=== PATIENT | male | born 1935 | race Caucasian/White ===

== ENCOUNTER 2022-12-12 14:39 | Inpatient (IN) | payer MEDICARE ==
--- NOTE | 2022-12-12 15:31 | ED ---
Extremity Problem HPI - General Source: patient, family, RN notes reviewed Mode of arrival: ambulatory Limitations: no limitations <Jacob Horne - Last Filed: 12/12/22 15:38> - General Source: patient, family, RN notes reviewed Mode of arrival: ambulatory Limitations: no limitations - History of Present Illness MD Complaint: extremity swelling Location: bilateral lower extremity <Madai Mcintosh - Last Filed: 12/13/22 11:32> - General Chief complaint: Extremity Problem,Nontraumatic Stated complaint: Fluid in legs-sent from urgentcare Time Seen by Provider: 12/12/22 15:30 - History of Present Illness Initial comments: This is an 87-year-old male presents emergency Department from urgent care with chief complaint of bilateral leg swelling. Patient states been getting worse he states is wheeping from both legs denies any significant shortness of breath no fever he states he is not on any diuretics. (Jacob Horne) In addition to the information above, patient states that he's had bilateral leg swelling for several weeks. These are starting to drain a large amount of fluid. States that he does have minor shortness of breath at baseline, however this is not getting worse. He did also previously experience orthopnea, but has not had this for a couple of days. He denies any pain associated with the leg swelling and drainage. He did go to urgent care earlier today, and they instructed him to come to the emergency department for evaluation of possible congestive heart failure. He does not follow with a primary care provider and has not done so in 10+ years. (Madai Mcintosh) - Related Data Home Medications Medication Instructions Recorded Confirmed Melatonin(Unknown Dose) 1 tab PO HS PRN 12/12/22 12/12/22 Allergies Allergy/AdvReac Type Severity Reaction Status Date / Time No Known Allergies Allergy Verified 12/12/22 19:19 Review of Systems ROS Other: All systems not noted in ROS Statement are negative. <Jacob Horne - Last Filed: 12/12/22 15:38> ROS Other: All systems not noted in ROS Statement are negative. <Madai Mcintosh - Last Filed: 12/13/22 11:32> ROS Statement: Those systems with pertinent positive or pertinent negative responses have been documented in the HPI. Past Medical History Past Medical History: Hypertension Additional Past Medical History / Comment(s): pt states that he hasn't been to a PCP in 10 years History of Any Multi-Drug Resistant Organisms: None Reported Past Surgical History: No Surgical Hx Reported Past Psychological History: Anxiety Smoking Status: Never smoker Past Alcohol Use History: Rare Past Drug Use History: None Reported <Jacob Horne - Last Filed: 12/12/22 15:38> General Exam <Jacob Horne - Last Filed: 12/12/22 15:38> Limitations: no limitations General appearance: alert, in no apparent distress Head exam: Present: atraumatic, normocephalic, normal inspection Respiratory exam: Present: normal lung sounds bilaterally. Absent: respiratory distress, wheezes, rales, rhonchi, stridor Cardiovascular Exam: Present: regular rate, normal rhythm, normal heart sounds. Absent: systolic murmur, diastolic murmur, rubs, gallop, clicks Extremities exam: Present: other (3+ pitting edema to the bilateral lower extremities with overlying erythema, superficial ulcerations, and weeping.) Neurological exam: Present: alert, oriented X3, CN II-XII intact Psychiatric exam: Present: normal affect, normal mood <Madai Mcintosh - Last Filed: 12/13/22 11:32> - General Exam Comments Initial Comments: Visual Physical Exam Vital signs reviewed General: Well-appearing, nontoxic, no acute distress. Head: Normocephalic, atraumatic Eyes: PERRLA, EOMI ENT: Airway patent Chest: Nonlabored breathing Skin: No visual rash, normal skin tone Neuro: Alert and oriented 3 Musculoskeletal: No gross abnormalities (Jacob Horne) Course Vital Signs 12/12/22 12/12/22 12/12/22 14:44 17:26 19:19 Temperature 98.0 F Pulse Rate 101 H 83 88 Respiratory 18 18 18 Rate Blood Pressure 148/75 140/74 155/75 O2 Sat by Pulse 96 99 98 Oximetry 12/12/22 12/12/22 12/12/22 20:30 22:00 23:40 Temperature Pulse Rate 94 85 85 Respiratory 18 16 17 Rate Blood Pressure 143/78 137/80 137/80 O2 Sat by Pulse 98 98 96 Oximetry 12/13/22 12/13/22 12/13/22 00:00 00:20 01:10 Temperature Pulse Rate 73 73 70 Respiratory 18 15 15 Rate Blood Pressure 102/61 111/78 124/70 O2 Sat by Pulse 96 95 98 Oximetry 12/13/22 12/13/22 12/13/22 02:30 03:30 05:00 Temperature Pulse Rate 66 76 66 Respiratory 13 18 12 Rate Blood Pressure 127/72 124/65 O2 Sat by Pulse 98 98 100 Oximetry 12/13/22 06:29 Temperature 97.6 F Pulse Rate 79 Respiratory 14 Rate Blood Pressure 126/82 O2 Sat by Pulse 100 Oximetry Medical Decision Making <Jacob Horne - Last Filed: 12/12/22 15:38> - Lab Data Result diagrams: 12/12/22 16:52 12/12/22 16:52 - Radiology Data Radiology results: report reviewed, image reviewed <Madai Mcintosh - Last Filed: 12/13/22 11:32> - Medical Decision Making I performed a quick note portion of this chart signed Jacob Horne PA-C (Jacob Horne) This is an 87-year-old male who presents to the emergency department for swelling to the bilateral lower extremities. Was pt. sent in by a medical professional or institution? @ -Urgent care Did you speak to anyone other than the patient for history? @ -No Did you review nursing and triage notes? @ -Yes, and I agree, it is accurate with regards to the patient's symptoms. Were old charts reviewed? @ -No Differential Diagnosis? @ -Differential Leg Swelling: DVT, cellulitis, CHF, lymphoma, this is not meant to be an all-inclusive list. EKG interpreted by me (3pts min.)? @ -EKG interpreted by me demonstrating the following: Sinus rhythm. Ventricular rate 94 beats per minute, AL interval 146 ms, QRS duration 106 ms, QTC 398 ms. X-rays interpreted by me (1pt min.)? @ -Chest x-ray obtained. My interpretation identifies cardiomegaly with pulmonary venous congestion. CT interpreted by me (1pt min.)? @ -Not obtained U/S interpreted by me (1pt. min.)? @ -Not obtained What testing was considered but not performed? (CT, X-rays, U/S, labs)? Why? @ -None What meds were considered but not given? Why? @ -None Did you discuss the management of the patient with other professionals? @ -Yes, Dr. Mott, who accepts the patient for admission to medicine. Did you reconcile home meds? @ -No Was smoking cessation discussed for >3mins.? @ -No Was critical care preformed (if so, how long)? @ -No Were there social determinants of health that impacted care today? How? (Homelessness, low income, unemployed, alcoholism, drug addiction, transportation, low edu. Level, literacy, decrease access to med. care, assisted, rehab)? @ -No Was there de-escalation of care discussed even if they declined? (Discuss DNR or withdrawal of care, Hospice)? @ -No What co-morbidities impacted this encounter? (DM, HTN, Smoking, COPD, CAD, Cancer, CVA, Hep., AIDS, mental health diagnosis, sleep apnea, morbid obesity)? @ -HTN Was patient admitted / discharged? @ -Admitted. Lab work obtained revealing poor renal function with a GFR of 25 and creatinine of 2.25. BNP also elevated at 42,400 suggestive of new onset congestive heart failure. Chest x-ray reveals cardiomegaly with pulmonary venous congestion and small bilateral pleural effusions. He does have erythema to the bilateral lower extremities in conjunction with the edema. Associated cellulitis cannot be excluded, will leave the decision of antibiotic management of to the admitting team. Patient has not had a follow-up appointment with a primary care provider in 10+ years and he does not have any recent lab values for comparison. Patient was given 60 mg of IV Lasix per the recommendation of ED attending. Given the notable lab values and because the patient is not established with any medical providers, he was admitted to medicine for new onset congestive heart failure. Undiagnosed new problem with uncertain prognosis? @ -None Drug Therapy requiring intensive monitoring for toxicity (Heparin, Nitro, Insulin, Cardizem)? @ -None Were any procedures done? @ -None Diagnosis/symptom? @ -New onset CHF, renal failure, leg swelling Acute, or Chronic, or Acute on Chronic? @ -Acute Uncomplicated (without systemic symptoms) or Complicated (systemic symptoms)? @ -Uncomplicated Side effects of treatment? @ -None Exacerbation, Progression, or Severe Exacerbation] @ -Not applicable Poses a threat to life or bodily function? @ -Yes This case was discussed in detail with the attending ED physician, Dr. Brady. Presentation, findings, and treatment plan discussed in detail as well. (Madai Tabares) - Lab Data Lab Results 12/12/22 12/12/22 12/12/22 Range/Units 16:52 16:52 16:52 WBC 8.8 (3.8-10.6) k/uL RBC 4.09 L (4.30-5.90) m/uL Hgb 12.3 L (13.0-17.5) gm/dL Hct 37.7 L (39.0-53.0) % MCV 92.1 (80.0-100.0) fL MCH 30.0 (25.0-35.0) pg MCHC 32.6 (31.0-37.0) g/dL RDW 13.5 (11.5-15.5) % Plt Count 298 (150-450) k/uL MPV 8.3 Neutrophils % 77 % Lymphocytes % 14 % Monocytes % 6 % Eosinophils % 2 % Basophils % 0 % Neutrophils # 6.7 (1.3-7.7) k/uL Lymphocytes # 1.2 (1.0-4.8) k/uL Monocytes # 0.5 (0-1.0) k/uL Eosinophils # 0.2 (0-0.7) k/uL Basophils # 0.0 (0-0.2) k/uL Sodium 138 (137-145) mmol/L Potassium 5.1 (3.5-5.1) mmol/L Chloride 108 H (98-107) mmol/L Carbon Dioxide 22 (22-30) mmol/L Anion Gap 8 mmol/L BUN 59 H (9-20) mg/dL Creatinine 2.25 H (0.66-1.25) mg/dL Est GFR (CKD-EPI)AfAm 29 (>60 ml/min/1.73 sqM) Est GFR (CKD-EPI)NonAf 25 (>60 ml/min/1.73 sqM) Glucose 147 H (74-99) mg/dL Estimated Ave Glu mg/dL 151 mg/dL Hemoglobin A1c 6.9 H (<=6.0) % Calcium 8.5 (8.4-10.2) mg/dL Magnesium 2.3 (1.6-2.3) mg/dL Total Bilirubin 0.3 (0.2-1.3) mg/dL AST 21 (17-59) U/L ALT 19 (4-49) U/L Alkaline Phosphatase 87 (38-126) U/L NT-Pro-B Natriuret Pep 03019 pg/mL Total Protein 5.8 L (6.3-8.2) g/dL Albumin 3.1 L (3.5-5.0) g/dL Disposition <Jacob Horne - Last Filed: 12/12/22 15:38> <Madai Mcintosh - Last Filed: 12/13/22 11:32> Clinical Impression: New onset of congestive heart failure, Renal failure, Edema of both legs Disposition: ADMITTED IP TO THIS HOSP
--- NOTE | 2022-12-12 16:19 | XR ---
EXAMINATION TYPE: XR chest 2V DATE OF EXAM: 12/12/2022 COMPARISON: NONE HISTORY: Shortness of breath TECHNIQUE: Frontal and lateral views of the chest are obtained. FINDINGS: Scattered senescent parenchymal changes noted. Hyperinflation compatible with COPD. Cardiomegaly with pulmonary venous congestion and small bilateral effusions. Correlate for mild conge stive failure. Mediastinal structures are stable and grossly unremarkable. No evidence for hilar prominence. Degenerative changes dorsal spine. IMPRESSION: 1. Cardiomegaly with pulmonary venous congestion and small bilateral effusions. Correlate for mild co ngestive failure.
[2022-12-12 17:06] LABS: Basophils % (A) 0 %; Eosinophils # (A) 0.2 k/uL (0-0.7); Eosinophils % (A) 2 %; HCT 37.7 % (39.0-53.0); HGB 12.3 gm/dL (13.0-17.5); Lymphocytes # (A) 1.2 k/uL (1.0-4.8); Lymphocytes % (A) 14 %; MCHC 32.6 g/dL (31.0-37.0); MCV 92.1 fL (80.0-100.0); Mean Platelet Volume 8.3; Monocytes # (A) 0.5 k/uL (0-1.0); Monocytes % (A) 6 %; Neutrophils # (A) 6.7 k/uL (1.3-7.7); Neutrophils % (A) 77 %; Platelet Count 298 k/uL (150-450); RBC 4.09 m/uL (4.30-5.90); RDW 13.5 % (11.5-15.5); WBC 8.8 k/uL (3.8-10.6)
[2022-12-12 17:14] LABS: ALT 19 U/L (4-49); AST 21 U/L (17-59); African American GFR (CKD) 29 (>60 ml/min/1.73 sqM); Albumin 3.1 g/dL (3.5-5.0); Alkaline Phosphatase 87 U/L (38-126); Anion Gap 8 mmol/L; Blood Urea Nitrogen 59 mg/dL (9-20); Calcium 8.5 mg/dL (8.4-10.2); Carbon Dioxide 22 mmol/L (22-30); Chloride 108 mmol/L (98-107); Glucose 147 mg/dL (74-99); Magnesium 2.3 mg/dL (1.6-2.3); Non-African American GFR(CKD) 25 (>60 ml/min/1.73 sqM); Potassium 5.1 mmol/L (3.5-5.1); Sodium 138 mmol/L (137-145); Total Bilirubin 0.3 mg/dL (0.2-1.3); Total Protein 5.8 g/dL (6.3-8.2)
[2022-12-12 17:42] LABS: NT-Pro-B-Type Natriuretic Pept 42400 pg/mL
[2022-12-12] MEDS ORDERED: FUROSEMIDE 10 MG/ML 4 ML VIAL IV STA (17:59)
[2022-12-12] MEDS ORDERED: FUROSEMIDE 10 MG/ML 10 ML VIAL IV STA (18:35)
[2022-12-12] MEDS ORDERED: ACETAMINOPHEN TAB 325 MG TAB PO PRN (18:35)
[2022-12-12] MEDS ORDERED: ONDANSETRON 4 MG/2 ML VIAL IVP PRN (18:35)
[2022-12-12] MEDS ORDERED: NALOXONE 0.4 MG/ML 1 ML VIAL IV PRN (18:35)
[2022-12-12] MEDS: HYDROcodone/APAP 5-325MG 1 EACH TAB PO PRN (22:51)
[2022-12-13] MEDS ORDERED: VANCOMYCIN IV PER PHARMACY 1 EACH MISC MISCELLANE PRN (00:39)
--- NOTE | 2022-12-13 00:39 | P.HPIM ---
History of Present Illness H&P Date: 12/12/22 Patient is a 87-year-old male with no known PMH who presents to the emergency room with complaints of bilateral lower extremity swelling and pain. He has been experiencing lower extremity swelling for the past several months and notes that recently got significantly worse. Reports exertional dyspnea during this time without chest discomfort. Denies cough, fever, chills, nausea, vomiting, abdominal pain, diarrhea. Denies orthopnea and PND. Denied history of congestive heart failure other cardiac disease. In the emergency room chest x-ray was consistent with CHF exacerbation. EKG revealed sinus rhythm with APCs at 94 bpm with LVH criteria. Laboratory evaluation was remarkable for a proBNP of 42,400, BUN 59, creatinine 2.25, glucose 147, hemoglobin 12.3. ED documentation reviewed and case discussed with ED provider. Review of systems: Pertinent positives and negatives as discussed in HPI, a complete review of systems was performed and all other systems are negative. Physical examination: Vital signs reviewed General: non toxic, no distress, appears at stated age Derm: Areas of erythema with purulent base ulcers on right leg medial and l ateral aspects with left leg medial aspect (marked), warm Head: atraumatic, normocephalic, symmetric Eyes: EOMI, no lid lag, anicteric sclera, pupils equal round reactive to light ENT: Nose and ears atraumatic Neck: No cervical lymphadenopathy, trachea midline, supple Mouth: no lip lesion, mucus membranes moist Cardiovascular: S1S2 reg, no murmur, positive dorsalis pedis pulse bilateral, 2+ bilateral lower 70 pitting edema to thighs Lungs: CTA bilateral, no rhonchi, no rales, no accessory muscle use Abdominal: soft, nontender to palpation, no guarding Ext: muscle strength 5 out of 5 in all 4 extremities grossly, no gross muscle atrophy, no contractures, Neuro: CN II-XI grossly intact, no gross focal neuro deficits Psych: Alert, oriented, appropriate affect Assessment: Bilateral lower extremity cellulitis Acute CHF exacerbation, newly diagnosed Kidney disease acute versus chronic Hyperglycemia without diagnosis of type II DM Imaging: In the emergency room chest x-ray was consistent with CHF exacerbation. EKG revealed sinus rhythm with APCs at 94 bpm with LVH criteria. Data Review: Laboratory evaluation was remarkable for a proBNP of 42,400, BUN 59, creatinine 2.25, glucose 147, hemoglobin 12.3. Plan: Start IV vancomycin for cellulitis Continue with Lasix 40 mg IV every 12 hourly Echocardiogram Daily weights, intake and output Cardiology consult Cardiac monitoring Monitor electrolytes daily Insulin sliding scale and blood glucose monitoring Check A1C levels DVT prophylaxis: Lovenox subcu The patient is admitted with an anticipated greater than 2 midnight stay for evaluation of cellulitis, CHF exacerbation CODE STATUS: Full Code Discussed with: Patient Anticipated discharge place: Home Past Medical History Past Medical History: Hypertension Additional Past Medical History / Comment(s): pt states that he hasn't been to a PCP in 10 years History of Any Multi-Drug Resistant Organisms: None Reported Past Surgical History: No Surgical Hx Reported Past Psychological History: Anxiety Smoking Status: Never smoker Past Alcohol Use History: Rare Past Drug Use History: None Reported Medications and Allergies Home Medications Medication Instructions Recorded Confirmed Type Melatonin(Unknown Dose) 1 tab PO HS PRN 12/12/22 12/12/22 History Allergies Allergy/AdvReac Type Severity Reaction Status Date / Time No Known Allergies Allergy Verified 12/12/22 19:19 Physical Exam Vitals: Vital Signs Temp Pulse Resp BP Pulse Ox 12/12/22 22:00 85 16 137/80 98 12/12/22 20:30 94 18 143/78 98 12/12/22 19:19 88 18 155/75 98 12/12/22 17:26 83 18 140/74 99 12/12/22 14:44 98.0 F 101 H 18 148/75 96 Intake and Output 12/12/22 12/12/22 12/13/22 14:59 22:59 06:59 Other: Weight 47.174 kg Results CBC & Chem 7: 12/12/22 16:52 12/12/22 16:52 Labs: Abnormal Lab Results - Last 24 Hours (Table) 12/12/22 12/12/22 Range/Units 16:52 16:52 RBC 4.09 L (4.30-5.90) m/uL Hgb 12.3 L (13.0-17.5) gm/dL Hct 37.7 L (39.0-53.0) % Chloride 108 H (98-107) mmol/L BUN 59 H (9-20) mg/dL Creatinine 2.25 H (0.66-1.25) mg/dL Glucose 147 H (74-99) mg/dL Total Protein 5.8 L (6.3-8.2) g/dL Albumin 3.1 L (3.5-5.0) g/dL
[2022-12-13] MEDS ORDERED: VANCOMYCIN 1,000 MG in SODIUM CHLORIDE 0.9% 250 ML IVPB ONE (01:00)
[2022-12-13 01:54] LABS: Glucose,Whole Blood 116 mg/dL (70-110)
[2022-12-13] MEDS: INSULIN ASPART (NovoLOG) 100 UNIT/ML VIAL SQ SCH ×4 (07:43→20:00)
[2022-12-13 07:50] LABS: Glucose,Whole Blood 110 mg/dL (70-110)
[2022-12-13] MEDS: FUROSEMIDE 10 MG/ML 4 ML VIAL IV SCH ×2 (08:11→21:10)
[2022-12-13] MEDS: ENOXAPARIN 30 MG/0.3 ML SYRINGE SQ SCH (08:11)
[2022-12-13] MEDS ORDERED: ENOXAPARIN 40 MG/0.4 ML SYRINGE SQ SCH (09:00)
--- NOTE | 2022-12-13 09:56 | US ---
EXAMINATION TYPE: US abdomen complete DATE OF EXAM: 12/13/2022 COMPARISON: NONE CLINICAL INDICATION: Male, 87 years old with history of edema, possible cirrhosis, SUJIT; distended abd TECHNIQUE: Multiple sonographic images of the abdomen are obtained. FINDINGS: EXAM MEASUREMENTS: Liver Length: 14.8 cm Gallbladder Wall: 0.4 cm CBD: 0.5 cm Spleen: not seen Right Kidney: 10.7 x 4.6 x 4.9 cm Left Kidney: not fully seen to assess FISH FILLETER NOTES: elderly male with distended abd and bowel gas Pancreas: not seen due to gas Liver: limited views, left lobe cyst = 2.4 x 1.9 x 1.1cm Gallbladder: multiple stones with wall thickening Evidence for sonographic Kaplan's sign: no CBD: wnl Spleen: not seen Right Kidney: severe hydronephrosis Left Kidney: unable to fully assess kidney due to extensive bowel gas, possible appearance of hydron ephrosis Upper IVC: wnl Abd Aorta: wnl midline fluid filled collection may represent over distended with diverticulum, patient stated he v oided today and had zero abd or pelvic pain Pancreas is obscured by overlying bowel gas. Left hepatic lobe simple appearing cyst. Noncirrhotic ap pearance of the liver. Cholelithiasis without evidence of pericardial fluid or positive sonographic M urphy sign. Common bile duct within normal limits. The intrahepatic portion of the IVC and proximal abdominal aorta are within normal limits. The splee n is not visualized. Left kidney is poorly visualized. Moderate right hydronephrosis. No solid mass o r nephrolithiasis identified. Midline fluid-filled collection. IMPRESSION: 1. Moderate right hydronephrosis. 2. Midline fluid-filled collection which may represent urinary bladder diverticulum versus other darius ologies. Consider further evaluation with CT abdomen pelvis with IV contrast. 3. Nonvisualization of left kidney due to overlying bowel gas. 4. Cholelithiasis.
[2022-12-13 11:42] LABS: African American GFR (CKD) 29 (>60 ml/min/1.73 sqM); Anion Gap 8 mmol/L; Blood Urea Nitrogen 63 mg/dL (9-20); Calcium 8.5 mg/dL (8.4-10.2); Carbon Dioxide 25 mmol/L (22-30); Chloride 106 mmol/L (98-107); Glucose 110 mg/dL (74-99); Magnesium 2.3 mg/dL (1.6-2.3); Non-African American GFR(CKD) 25 (>60 ml/min/1.73 sqM); Potassium 4.4 mmol/L (3.5-5.1); Sodium 139 mmol/L (137-145)
[2022-12-13 11:55] LABS: Glucose,Whole Blood 141 mg/dL (70-110)
[2022-12-13 14:21] VITALS: BMI 16.7
--- NOTE | 2022-12-13 14:32 | US ---
EXAMINATION TYPE: US arterial LE single level DATE OF EXAM: 12/13/2022 2:21 PM CLINICAL INDICATION: Male, 87 years old with history of b/l CHELSEA/TBI; wounds medial calves, redness History of: Smoker: previous Hypertension: y Diabetic: n Hyperlipidemia: y TIA/CVA: n Previous Vascular Surgery: n CAD: n OK: n Vascular Ulcers: n Claudication: n Gangrene: n Doppler Waveforms: Right: Multiphasic Left: Multiphasic Right Brachial Pressure: 159 Left Brachial Pressure: 151 Ankle-Brachial Indices: Right: 1.3 Left: 1.2 Toe Brachial Indices: Right: 0.9 Left: 1.0 IMPRESSION: Normal ankle-brachial indices bilaterally.
[2022-12-13 16:34] LABS: Glucose,Whole Blood 106 mg/dL (70-110)
--- NOTE | 2022-12-13 17:05 | P.CRDCN ---
History of Present Illness History of present illness: HISTORY OF PRESENTING ILLNESS Patient is pleasant 87-year-old male with no significant medical history who presents secondary to worsening lower extremity edema and shortness breath. He was actually seen at [facility] ER at [address] for similar symptoms approximately a week ago and was recommended to be transferred however patient left AMA. He states over the last 2 weeks he has been noticing increasing lower extremity edema as well as some shortness breath with exertion. He denies any chest pain or pressure. He was found to have kidney injury with creatinine 2.2, unclear baseline. Additionally hemoglobin 6.9 with unclear baseline. ProBNP 42,400. Additionally has been having erythema and some pain of the lower extremities with some nonhealing wounds. He denies any prior cardiac workup. Abdominal ultrasound does show concern of right hydronephrosis and left kidney not able to be fully seen secondary to overlying bowel gas. He does have some right lower abdomen distention and appears somewhat more full however he does not believe this is the case. No tobacco, rare alcohol, no illicit drugs, no family history. Has never been told he has heart failure before. Does not believe he has had kidney failure before. EKG shows sinus rhythm with LVH and nonspecific ST abnormalities. REVIEW OF SYSTEMS At the time of my exam: CONSTITUTIONAL: Denies fever or chills. CARDIOVASCULAR: Denies chest pain, +shortness of breath, no orthopnea, PND or palpitations. RESPIRATORY: Denies cough. GASTROINTESTINAL: Denies abdominal pain, diarrhea, constipation, nausea or vomiting. MUSCULOSKELETAL: Denies myalgias. NEUROLOGIC: Denies numbness, tingling or weakness. ENDOCRINE: Denies fatigue, weight change, polydipsia or polyurina. GENITOURINARY: Denies burning, hematuria or urgency with micturation. HEMATOLOGIC: Denies history of anemia or bleeding. PHYSICAL EXAMINATION Vital signs reviewed. CONSTITUTIONAL: No apparent distress. HEENT: Head is normocephalic. Pupils are equal, round. Sclerae anicteric. Mucous membranes of the mouth are moist. No JVD. No carotid bruit. CHEST EXAMINATION: Lungs are clear to auscultation. No chest wall tenderness is noted on palpation or with deep breathing. HEART EXAMINATION: Regular rate and rhythm. S1, S2 heard. No murmurs, gallops or rub. ABDOMEN: Soft, nontender. Positive bowel sounds. +> RLQ abd distention EXTREMITIES: 2+ peripheral pulses, 2+ lower extremity edema with erythema and ulcer NEUROLOGIC EXAMINATION: Patient is awake, alert and oriented x3. ASSESSMENT 1. Acute on chronic heart failure presumed diastolic 2. Kidney failure, unclear acute or chronic 3. Abnormal EKG with LVH 4. Newly diagnosed diabetes mellitus type 2, hemoglobin A1c 6.9 5. Right hydronephrosis 6. Right lower abdominal distention PLAN Obtain troponin for completeness. Majority of symptoms appear related to heart failure. He does have some degree of kidney failure unclear if this is acute or chronic. May be in part related to hydronephrosis. Defer any further imaging to primary however does have some increased right lower abdominal distention and consider CAT scan to further evaluate. Discussed with nursing checking a bladder scan. Continue with IV Lasix. Check 2-D echo. Further recommendations to follow. Obtain records from [place] Past Medical History Past Medical History: Hypertension Additional Past Medical History / Comment(s): pt states that he hasn't been to a PCP in 10 years History of Any Multi-Drug Resistant Organisms: None Reported Past Surgical History: No Surgical Hx Reported Past Anesthesia/Blood Transfusion Reactions: No Reported Reaction, Unable to Obtain Additional Past Anesthesia/Blood Transfusion Reaction / Comment(s): pt has never had a blood transfusion Past Psychological History: Anxiety Smoking Status: Never smoker Past Alcohol Use History: Rare Past Drug Use History: None Reported - Past Family History Father Family Medical History: Dementia Mother Family Medical History: Cancer Medications and Allergies Home Medications Medication Instructions Recorded Confirmed Type Melatonin(Unknown Dose) 1 tab PO HS PRN 12/12/22 12/12/22 History Allergies Allergy/AdvReac Type Severity Reaction Status Date / Time No Known Allergies Allergy Verified 12/12/22 19:19 Physical Exam Vitals: Vital Signs Temp Pulse Pulse Resp BP BP BP 12/13/22 15:55 97.9 F 85 17 138/65 12/13/22 14:00 64 17 12/13/22 11:45 98.7 F 64 17 135/65 12/13/22 11:37 65 18 135/65 12/13/22 06:29 97.6 F 79 14 126/82 12/13/22 05:00 66 12 12/13/22 03:30 76 18 124/65 12/13/22 02:30 66 13 127/72 12/13/22 01:10 70 15 124/70 12/13/22 00:20 73 15 111/78 12/13/22 00:00 73 18 102/61 12/12/22 23:40 85 17 137/80 12/12/22 22:00 85 16 137/80 12/12/22 20:30 94 18 143/78 12/12/22 19:19 88 18 155/75 12/12/22 17:26 83 18 140/74 Pulse Ox 12/13/22 15:55 97 12/13/22 14:00 12/13/22 11:45 98 12/13/22 11:37 96 12/13/22 06:29 100 12/13/22 05:00 100 12/13/22 03:30 98 12/13/22 02:30 98 12/13/22 01:10 98 12/13/22 00:20 95 12/13/22 00:00 96 12/12/22 23:40 96 12/12/22 22:00 98 12/12/22 20:30 98 12/12/22 19:19 98 12/12/22 17:26 99 Intake and Output 12/13/22 12/13/22 12/13/22 06:59 14:59 22:59 Output Total 725 Balance -725 Output: Urine 725 Other: Voiding Method Urinal External Catheter Weight 47.174 kg Results 12/12/22 16:52 12/13/22 10:49 Cardiac Enzymes 12/12/22 Range/Units 16:52 AST 21 (17-59) U/L CBC 12/12/22 Range/Units 16:52 WBC 8.8 (3.8-10.6) k/uL RBC 4.09 L (4.30-5.90) m/uL Hgb 12.3 L (13.0-17.5) gm/dL Hct 37.7 L (39.0-53.0) % Plt Count 298 (150-450) k/uL Comprehensive Metabolic Panel 12/12/22 12/13/22 Range/Units 16:52 10:49 Sodium 138 139 (137-145) mmol/L Potassium 5.1 4.4 (3.5-5.1) mmol/L Chloride 108 H 106 (98-107) mmol/L Carbon Dioxide 22 25 (22-30) mmol/L BUN 59 H 63 H (9-20) mg/dL Creatinine 2.25 H 2.25 H (0.66-1.25) mg/dL Glucose 147 H 110 H (74-99) mg/dL Calcium 8.5 8.5 (8.4-10.2) mg/dL AST 21 (17-59) U/L ALT 19 (4-49) U/L Alkaline Phosphatase 87 (38-126) U/L Total Protein 5.8 L (6.3-8.2) g/dL Albumin 3.1 L (3.5-5.0) g/dL Current Medications Generic Name Dose Route Start Last Admin Trade Name Freq PRN Reason Stop Dose Admin Acetaminophen 650 mg 12/12/22 18:35 Acetaminophen Tab 325 Mg Tab PO Q6HR PRN Mild Pain or Fever > 100.5 Hydrocodone Bitart/Acetaminophen 1 each 12/12/22 18:35 12/12/22 22:51 Hydrocodone/Apap 5-325mg 1 Each Tab PO 1 each Q4HR PRN Administration Moderate Pain (Scale 4 to 6) Enoxaparin Sodium 30 mg 12/13/22 09:00 12/13/22 08:11 Enoxaparin 30 Mg/0.3 Ml Syringe SQ 30 mg DAILY TANYA Administration Furosemide 40 mg 12/13/22 09:00 12/13/22 08:11 Furosemide 10 Mg/Ml 4 Ml Vial IV 40 mg Q12HR TANYA Administration Vancomycin HCl 1,000 mg/ 250 mls @ 125 mls/hr 12/14/22 06:00 Sodium Chloride IVPB 12/14/22 07:59 ONCE ONE Insulin Aspart 0 unit 12/13/22 07:30 12/13/22 12:04 Insulin Aspart (Novolog) 100 Unit/Ml Vial SQ Not Given ACHS [facility] Protocol Miscellaneous Information 1 each 12/13/22 00:39 Vancomycin Iv Per Pharmacy 1 Each Misc MISCELLANE DIRECTED PRN Per Protocol Protocol Naloxone HCl 0.2 mg 12/12/22 18:35 Naloxone 0.4 Mg/Ml 1 Ml Vial IV Q2M PRN Opioid Reversal Ondansetron HCl 4 mg 12/12/22 18:35 Ondansetron 4 Mg/2 Ml Vial IVP Q8HR PRN Nausea And Vomiting Intake and Output 12/13/22 12/13/2212/13/23 06:59 14:59 22:59 Output Total 725 Balance -725 Output: Urine 725 Other: Voiding Method Urinal External Catheter Weight 47.174 kg Patient Weight 12/14/22 06:59 Weight 47.174 kg 12/12/22 16:52 12/13/22 10:49
[2022-12-13] MEDS ORDERED: ALPRAZolam 0.25 MG TAB PO PRN (18:11)
--- NOTE | 2022-12-13 18:25 | P.PN ---
Subjective Progress Note Date: 12/13/22 (delayed charting seen at 0855) Patient is an 87-year-old male with no known past medical history who does not follow with doctors who presented to the ER due to bilateral lower extremity swelling and pain. On arrival to the ER he underwent an extensive evaluation. Initial vital signs were significant for tachycardia of 101. Initial laboratory analysis was remarkable for hemoglobin 12.3, BUN 59, creatinine 2.25, glucose 147, and BNP 42,400. Chest x-ray demonstrated cardiomegaly with pulmonary venous congestion and small bilateral pleural effusions. EKG showed normal sinus rhythm and no signs of ischemia. He was noted to have redness of bilateral lower extremities. He was diagnosed with bilateral looks pretty cellulitis and acute exacerbation of congestive heart failure. He was Lasix and vancomycin. Arrangements were made for admission. Patient seen and examined at bedside with sudden . He relates that he has not seen a physician in quite some time. He has low have lower extremity edema for a while but has been slowly worsening. He denies any significant shortness of breath. He states that his belly has been hard and swollen for quite some time. He denies any difficulty urinating. He denies any significant alcohol or tobacco use. Vital signs reviewed General: nontoxic, no distress, appears at stated age Cardiovascular: S1S2 reg with grade 2 systolic ejection murmur, positive posterior tibial pulse bilateral, Lungs: Coarse breath sounds bilateral, no rhonchi, no rales , no accessory muscle use Abdominal: soft,+ distended but non tender, no guarding, no appreciable organomegaly Ext: no gross muscle atrophy, 4+ edema bilateral lower extremities, bilateral lower extremity violaceous erythema with areas of caseous tissue, no contractures Neuro: CN II-XI grossly intact, no focal neuro deficits Psych: Alert, oriented, appropriate affect Assessment/Plan: Acute exacerbation of congestive heart failure Suspect bilateral peripheral vascular disease, possible component of lower extremity cellulitis Abdominal distention - Lasix 40 mg IVP BID - Stirct I and O, daily weights, - await cardio recs - check abd US - check CHELSEA - Vancomycin with pharmacy dosing, monitor for toxicity with trough and Cr levels - Await echo Hyperglycemia -Follow blood sugars, sliding scale insulin -A1c 6.9 consistent with diabetes Elevated creatinine, acute kidney injury versus chronic kidney disease -Check abdominal/renal ultrasound -Suspect component of cardiorenal syndrome and continue with Lasix -Avoid additional nephrotoxic agents -Monitor for vancomycin toxicity closely, pharmacy to dose IV vancomycin based on trough levels. We'll monitor creatinine and a trough daily - Imaging: Data Review: Labs from today include basic profile is remarkable for BUN 63 and creatinine 2.25. DVT prophylaxis: Discussed with: Anticipated discharge date: Anticipated discharge place: This dictation was prepared using gumi voice recognition software. Though every attempt is made to correct errors during dictation some may still exist. Objective - Vital Signs Vital signs: Vital Signs Temp 97.9 F 12/13/22 15:55 Pulse 85 12/13/22 15:55 Resp 17 12/13/22 15:55 BP 138/65 12/13/22 15:55 Pulse Ox 97 12/13/22 15:55 FiO2 Intake & Output 12/12/22 12/13/22 12/13/22 18:59 06:59 18:59 Output Total 725 1500 Balance -725 -1500 Weight 47.174 kg 47.174 kg Output: Urine 725 1500 Other: Voiding Method External Catheter - Labs CBC & Chem 7: 12/12/22 16:52 12/13/22 10:49 Labs: Abnormal Lab Results - Last 24 Hours (Table) 12/12/22 12/13/22 12/13/22 Range/Units 16:52 01:51 10:49 BUN 63 H (9-20) mg/dL Creatinine 2.25 H (0.66-1.25) mg/dL Glucose 110 H (74-99) mg/dL POC Glucose (mg/dL) 116 H (70-110) mg/dL Hemoglobin A1c 6.9 H (<=6.0) % 12/13/22 Range/Units 11:52 BUN (9-20) mg/dL Creatinine (0.66-1.25) mg/dL Glucose (74-99) mg/dL POC Glucose (mg/dL) 141 H (70-110) mg/dL Hemoglobin A1c (<=6.0) %
--- NOTE | 2022-12-13 18:58 | CT ---
EXAMINATION TYPE: CT abdomen pelvis wo con CT DLP: 367.5 mGycm, Automated exposure control for dose reduction was used. DATE OF EXAM: 12/13/2022 6:51 PM COMPARISON: None CLINICAL INDICATION:Male, 87 years old with history of fluid collection midline, and right hydro; Flu id collection midline, and right hydronephrosis. TECHNIQUE: Axial CT of the ;CT abdomen pelvis wo con;Sagittal and coronal reformats were created on a separate workstation. Contrast used: mL of , (none if empty) Oral contrast used: without Oral Contrast (none if empty) FINDINGS: LOWER CHEST: Small bilateral pleural effusions. Right lower lung calcified granuloma. Heart is mildly enlarged for size. ABDOMEN LIVER: Unremarkable GALLBLADDER AND BILE DUCTS: Layering increased densities within the lumen consistent with gallstones are present. PANCREAS: Unremarkable. SPLEEN: Unremarkable. ADRENAL GLANDS: Unremarkable. KIDNEYS AND URETERS: Moderate hydroureteronephrosis bilaterally. PELVIS BLADDER: Urinary bladder is distended which are dictated borders enlarged right lateral bladder diver ticulum. REPRODUCTIVE: Prostate is enlarged in size measuring 5.0. Cm in transverse dimension. ABDOMEN & PELVIS STOMACH AND BOWEL: No evidence of bowel obstruction. Scattered colonic diverticula with moderate to l arge stool burden throughout the colon. PERITONEUM/RETROPERITONEUM: No evidence of pneumoperitoneum or free fluid. VASCULATURE: Mild atherosclerotic calcifications are present throughout the abdominal aorta and its b ranches. No evidence of aortic aneurysm. MUSCULOSKELETAL: No acute osseous abnormalities. Moderate disc degeneration changes are present throu ghout the thoracolumbar spine. LYMPH NODES: No gross evidence for lymphadenopathy. SOFT TISSUE/ABDOMINAL WALL: Anasarca of the soft tissues. IMPRESSION: 1. 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 There is a large right bladder diverticulum with a distended urinary bladder with trabec ulated urinary bladder hernandez. There is moderate bilateral hydroureteronephrosis. Edwards catheter recom mended. 2. Moderate to large stool burden throughout the colon with colonic diverticulosis. 3. Small bilateral pleural effusions with anasarca and cardiomegaly correlate for congestive heart f ailure.
[2022-12-13 19:58] LABS: Glucose,Whole Blood 144 mg/dL (70-110)
[2022-12-13] MEDS: HYDROcodone/APAP 5-325MG 1 EACH TAB PO PRN (21:10)
[2022-12-14 05:56] LABS: Glucose,Whole Blood 103 mg/dL (70-110)
[2022-12-14] MEDS ORDERED: VANCOMYCIN 1,000 MG in SODIUM CHLORIDE 0.9% 250 ML IVPB ONE (06:00)
[2022-12-14] MEDS: INSULIN ASPART (NovoLOG) 100 UNIT/ML VIAL SQ SCH ×4 (06:36→21:11)
--- NOTE | 2022-12-14 07:43 | P.GSCN ---
History of Present Illness Consult date: 12/14/22 History of present illness: 87 yo male brought into hospital for new onset chf with lower extremity swelling and pain. He was found to have bilateral hydronephrosis and urine retention. He was straight cathed for 1300 ml and larson also bilateral hydro and a bladder diverticula We are asked to see the patient. The patient has been having problems with swelling over the last several weeks. He does have frequent urination and nocturia 3. He denies infection. He denies incontinence. He denies hematuria. He has not seen a doctor in many years. He is not on any medication for voiding dysfunction. Review of Systems All systems: negative - Constitutional Denies fever, Denies weight loss - EENT Eyes: denies blurred vision Ears, nose, mouth and throat: Denies dysphagia - Cardiovascular Denies chest pain, Denies shortness of breath - Respiratory Denies cough, Denies 7 - Gastrointestinal Reports as per HPI - Genitourinary Denies dysuria, Denies hematuria - Integumentary Denies rash, Denies unusual bruising - Neurological Denies headaches, Denies syncope - Hematologic/Lymphatic Denies easy bleeding, Denies easy bruising Past Medical History Past Medical History: Hypertension Additional Past Medical History / Comment(s): pt states that he hasn't been to a PCP in 10 years History of Any Multi-Drug Resistant Organisms: None Reported Past Surgical History: No Surgical Hx Reported Past Anesthesia/Blood Transfusion Reactions: No Reported Reaction, Unable to Obtain Additional Past Anesthesia/Blood Transfusion Reaction / Comm: pt has never had a blood transfusion Past Psychological History: Anxiety Smoking Status: Never smoker Past Alcohol Use History: Rare Past Drug Use History: None Reported - Past Family History Father Family Medical History: Dementia Mother Family Medical History: Cancer Medications and Allergies Home Medications Medication Instructions Recorded Confirmed Type Melatonin(Unknown Dose) 1 tab PO HS PRN 12/12/22 12/12/22 History Allergies Allergy/AdvReac Type Severity Reaction Status Date / Time No Known Allergies Allergy Verified 12/12/22 19:19 Surgical - Exam Vital Signs Temp Pulse Resp BP Pulse Ox 98.0 F 101 H 18 148/75 96 12/12/22 14:44 12/12/22 14:44 12/12/22 14:44 12/12/22 14:44 12/12/22 14:44 - General well developed, well nourished, no distress - Eyes normal ocular movement, no icteric - ENT no hearing loss, no congestion - Neck no masses, trachea midline - Respiratory normal respiratory effort, clear to auscultation - Abdomen Abdomen: soft, non tender, no guarding, no rigid, no rebound - Genitourinary Catheter with light pink urine - Integumentary no rash, no abnormal pigmentation - Neurologic no disoriented, no combative - Psychiatric oriented to time, oriented to person, oriented to place, speech is normal, emi ry intact Results - Labs 12/12/22 16:52 12/13/22 10:49 Abnormal Lab Results - Last 24 Hours (Table) 12/12/22 12/13/22 12/13/22 Range/Units 16:52 10:49 11:52 BUN 63 H (9-20) mg/dL Creatinine 2.25 H (0.66-1.25) mg/dL Glucose 110 H (74-99) mg/dL POC Glucose (mg/dL) 141 H (70-110) mg/dL Hemoglobin A1c 6.9 H (<=6.0) % Troponin I (0.000-0.034) ng/mL 12/13/22 12/13/22 Range/Units 18:22 19:56 BUN (9-20) mg/dL Creatinine (0.66-1.25) mg/dL Glucose (74-99) mg/dL POC Glucose (mg/dL) 144 H (70-110) mg/dL Hemoglobin A1c (<=6.0) % Troponin I 0.067 H* (0.000-0.034) ng/mL Diabetes panel 12/12/22 12/13/22 Range/Units 16:52 10:49 Sodium 139 (137-145) mmol/L Potassium 4.4 (3.5-5.1) mmol/L Chloride 106 (98-107) mmol/L Carbon Dioxide 25 (22-30) mmol/L BUN 63 H (9-20) mg/dL Creatinine 2.25 H (0.66-1.25) mg/dL Glucose 110 H (74-99) mg/dL Hemoglobin A1c 6.9 H (<=6.0) % Calcium 8.5 (8.4-10.2) mg/dL Calcium panel 12/13/22 Range/Units 10:49 Calcium 8.5 (8.4-10.2) mg/dL Pituitary panel 12/13/22 Range/Units 10:49 Sodium 139 (137-145) mmol/L Potassium 4.4 (3.5-5.1) mmol/L Chloride 106 (98-107) mmol/L Carbon Dioxide 25 (22-30) mmol/L BUN 63 H (9-20) mg/dL Creatinine 2.25 H (0.66-1.25) mg/dL Glucose 110 H (74-99) mg/dL Calcium 8.5 (8.4-10.2) mg/dL Adrenal panel 12/13/22 Range/Units 10:49 Sodium 139 (137-145) mmol/L Potassium 4.4 (3.5-5.1) mmol/L Chloride 106 (98-107) mmol/L Carbon Dioxide 25 (22-30) mmol/L BUN 63 H (9-20) mg/dL Creatinine 2.25 H (0.66-1.25) mg/dL Glucose 110 H (74-99) mg/dL Calcium 8.5 (8.4-10.2) mg/dL - Imaging CT scan - abdomen: report reviewed, image reviewed CT scan - pelvis: report reviewed, image reviewed US - kidney/bladder: report reviewed Assessment and Plan Assessment: Impression: Congestive heart failure. Urine retention. Bladder diverticula. Bilateral hydronephrosis secondary to urine retention. Recommendations: The patient should go home with the indwelling catheter. I will add Flomax to his regimen. As an outpatient he will need a cystometrogram cystoscopy to assess the bladder and prostatic function.
[2022-12-14 08:25] LABS: Basophils % (A) 0 %; Eosinophils # (A) 0.2 k/uL (0-0.7); Eosinophils % (A) 3 %; HCT 36.4 % (39.0-53.0); HGB 12.1 gm/dL (13.0-17.5); Lymphocytes # (A) 1.3 k/uL (1.0-4.8); Lymphocytes % (A) 15 %; MCH 30.9 pg (25.0-35.0); MCHC 33.3 g/dL (31.0-37.0); MCV 92.9 fL (80.0-100.0); Mean Platelet Volume 7.4; Monocytes # (A) 0.5 k/uL (0-1.0); Monocytes % (A) 6 %; Neutrophils # (A) 6.4 k/uL (1.3-7.7); Neutrophils % (A) 75 %; Platelet Count 302 k/uL (150-450); RBC 3.92 m/uL (4.30-5.90); RDW 13.5 % (11.5-15.5); WBC 8.6 k/uL (3.8-10.6)
[2022-12-14 08:44] LABS: African American GFR (CKD) 28 (>60 ml/min/1.73 sqM); Anion Gap 9 mmol/L; Blood Urea Nitrogen 63 mg/dL (9-20); Calcium 8.7 mg/dL (8.4-10.2); Carbon Dioxide 26 mmol/L (22-30); Chloride 103 mmol/L (98-107); Glucose 123 mg/dL (74-99); Non-African American GFR(CKD) 24 (>60 ml/min/1.73 sqM); Potassium 3.9 mmol/L (3.5-5.1); Sodium 138 mmol/L (137-145)
[2022-12-14] MEDS: ENOXAPARIN 30 MG/0.3 ML SYRINGE SQ SCH (08:50)
[2022-12-14] MEDS: FUROSEMIDE 10 MG/ML 4 ML VIAL IV SCH (08:50)
[2022-12-14 11:20] LABS: Glucose,Whole Blood 153 mg/dL (70-110)
--- NOTE | 2022-12-14 11:35 | P.NPCON ---
History of Present Illness - Reason for Consult acute renal failure - History of Present Illness Reason for consultation: Acute kidney injury History of present illness: Patient is a 87-year-old male seen in consultation for acute kidney injury. Patient's creatinine on admission was 2.25 and is fairly stable at 2.38 today. Patient came to the hospital due to worsening lower extremity edema going on for the last few months. He also noticed redness in his lower extremities and is currently being treated for cellulitis. Patient does not follow with nephrology outpatient. Family is present at bedside. Her family he hasn't seen a physician in quite some time. No history of diabetes. No history of coronary artery disease. Denies regular use of nonsteroidals. Currently receiving IV Lasix and edema has improved her patient. No fever or chills. Vital signs are stable. General: No acute distress. HEENT: Head exam is unremarkable. LUNGS: Breath sounds decreased. HEART: Rate and Rhythm are regular. ABDOMEN: Nontender. EXTREMITITES: 1+ edema. Erythema noted. No drainage. Past Medical History Past Medical History: Hypertension Additional Past Medical History / Comment(s): pt states that he hasn't been to a PCP in 10 years History of Any Multi-Drug Resistant Organisms: None Reported Past Surgical History: No Surgical Hx Reported Past Anesthesia/Blood Transfusion Reactions: No Reported Reaction, Unable to Obtain Additional Past Anesthesia/Blood Transfusion Reaction / Comment(s): pt has never had a blood transfusion Past Psychological History: Anxiety Smoking Status: Never smoker Past Alcohol Use History: Rare Past Drug Use History: None Reported - Past Family History Father Family Medical History: Dementia Mother Family Medical History: Cancer Medications and Allergies Home Medications Medication Instructions Recorded Confirmed Type Melatonin(Unknown Dose) 1 tab PO HS PRN 12/12/22 12/12/22 History Allergies Allergy/AdvReac Type Severity Reaction Status Date / Time No Known Allergies Allergy Verified 12/12/22 19:19 Physical Exam Vitals: Vital Signs Temp Pulse Pulse Resp BP BP BP 12/14/22 08:00 98.4 F 94 17 145/63 12/14/22 04:00 74 18 113/61 12/14/22 02:00 91 18 12/13/22 23:56 91 18 123/65 12/13/22 20:00 106 H 17 12/13/22 19:45 99 F 106 H 17 134/62 12/13/22 15:55 97.9 F 85 17 138/65 12/13/22 14:00 64 17 12/13/22 11:45 98.7 F 64 17 135/65 12/13/22 11:37 65 18 135/65 Pulse Ox 12/14/22 08:00 98 12/14/22 04:00 97 12/14/22 02:00 12/13/22 23:56 97 12/13/22 20:00 12/13/22 19:45 98 12/13/22 15:55 97 12/13/22 14:00 12/13/22 11:45 98 12/13/22 11:37 96 Intake and Output 12/13/22 12/14/22 12/14/22 22:59 06:59 14:59 Intake Total 350 Output Total 5100 3300 Balance -5100 -3300 350 Intake: Oral 350 Output: Urine 5100 3300 Straight 1300 Other: Voiding Method External Catheter Indwelling Catheter Weight 49.5 kg Results - Lab Results Most recent lab results Calcium 8.7 mg/dL (8.4-10.2) 12/14/22 07:49 Magnesium 2.0 mg/dL (1.6-2.3) 12/14/22 07:49 12/14/22 07:49 12/14/22 07:49 Assessment and Plan Plan: Assessment: 1. Acute kidney injury secondary to ATN from cardiorenal syndrome and obstructive uropathy. Creatinine stable at 2.38. Unknown baseline renal function. 2. Bilateral hydronephrosis secondary to urinary retention. On Flomax. Has Edwards catheter. Urology following. Cystoscopy outpatient. 3. Volume overload. Improving with diuresis. 4. Cardiomyopathy. Unknown ejection fraction. Cardiology following. 5. Lower extremity cellulitis on antibiotics. Plan: Maintain IV Lasix. Check urinalysis. Continue to monitor renal function and urine output. Follow-up echocardiogram. Avoid nephrotoxins. Thank you for the consultation. I will continue to follow the patient daily during his hospital stay.
--- NOTE | 2022-12-14 11:47 | CA ---
Transthoracic Echo Report Name: Meir Cat Age: 87 Gender: M : 1935 Exam Date: 12/13/2022 13:13 Exam Location: [facility] Ht (in): 66 Wt (lb): 104 Ordering Physician: Meg Hale MD Attending/Referring Phys: Clinical Practitioner Jos Chen Procedure CPT: Indications: chf Cardiac Hx: Technical Quality: Fair Contrast 1: Total Dose (mL): Contrast 2: Total Dose (mL): MEASUREMENTS (Male / Female) Normal Values 2D ECHO LV Diastolic Diameter PLAX 6.0 cm 4.2 - 5.9 / 3.9 - 5.3 cm LV Systolic Diameter PLAX 5.3 cm IVS Diastolic Thickness 1.0 cm 0.6 - 1.0 / 0.6 - 0.9 cm LVPW Diastolic Thickness 1.0 cm 0.6 - 1.0 / 0.6 - 0.9 cm LV Relative Wall Thickness 0.3 RV Internal Dim ED PLAX 3.3 cm LVOT Diameter 2.3 cm Aortic Root Diameter 3.3 cm LA Systolic Diameter LX 2.9 cm 3.0 - 4.0 / 2.7 - 3.8 cm LV Diastolic Volume MOD BP 168.0 cm??? 67 - 155 / 56 - 104 cm??? LV Systolic Volume MOD BP 105.2 cm??? - 58 / 19 - 49 cm??? LV Ejection Fraction MOD BP 37.4 % >= 55 % LV Cardiac Index MOD BP 3209.0 cm???/min???m??? LV Diastolic Volume MOD 4C 161.0 cm??? LV Systolic Volume MOD 4C 100.4 cm??? LV Ejection Fraction MOD 4C 37.7 % LV Cardiac Index MOD 4C 3097.6 cm???/min???m??? LV Diastolic Length 4C 8.9 cm LV Systolic Length 4C 8.0 cm LV Diastolic Volume MOD 2C 175.0 cm??? LV Systolic Volume MOD 2C 108.3 cm??? LV Ejection Fraction MOD 2C 38.1 % LV Cardiac Index MOD 2C 3407.7 cm???/min???m??? LV Diastolic Length 2C 8.8 cm LV Systolic Length 2C 8.2 cm LA Volume 69.6 cm??? 18 - 58 / 22 - 52 cm??? LA Volume Index 47.4 cm???/m??? 16 - 28 cm???/m??? DOPPLER AV Peak Velocity 130.3 cm/s AV Peak Gradient 6.8 mmHg AI Peak Velocity 339.1 cm/s AI Peak Gradient 46.0 mmHg AI Pressure Half Time 526.8 ms LVOT Peak Velocity 92.6 cm/s LVOT Peak Gradient 3.4 mmHg LVOT Velocity Time Integral 19.7 cm LVOT Stroke Volume 78.7 cm??? LVOT Stroke Volume Index 52.0 ml/m??? LVOT Cardiac Index 4021.4 cm???/min???m??? AV Area Cont Eq pk 2.8 cm??? MV Peak Velocity 107.7 cm/s MV Peak Gradient 4.6 mmHg MV Mean Velocity 50.9 cm/s MV Mean Gradient 1.3 mmHg MV Velocity Time Integral 30.6 cm MR Peak Velocity 590.4 cm/s MR Peak Gradient 139.4 mmHg Mitral E Point Velocity 98.8 cm/s Mitral A Point Velocity 63.7 cm/s Mitral E to A Ratio 1.5 MV Deceleration Time 216.0 ms PV Peak Velocity 82.7 cm/s PV Peak Gradient 2.7 mmHg FINDINGS Left Ventricle Severely increased left ventricular systolic volume. Severely decreased left ventricular ejection fraction. Left ventricular ejection fraction is estimated at 20-25%. Suspected inferolateral hypokinesia Right Ventricle Normal right ventricular size. Right Atrium Normal right atrial size. Left Atrium Moderately increased left atrial volume. Mildly increased left atrial area. LA volume index= 46ml/m2. Mitral Valve Structurally normal mitral valve. Moderate MR. Aortic Valve Trileaflet aortic valve. Mild to moderate AV calcification. Moderate AI. Tricuspid Valve Structurally normal tricuspid valve. Trace TR. Pulmonic Valve Pulmonic valve not well visualized. Mild PI. Pericardium Normal pericardium. Aorta Normal size aortic root. CONCLUSIONS LVEF estimated at 20-25% Severely increased LV cavity size Severely reduced global LV systolic function Inferolateral hypokinesia Moderate mitral regurgitation Calcific aortic valve with moderate aortic regurgitation. Moderate left atrial dilatation Previewed by: Dr Wes Devlin (Electronically Signed) Final Date: 14 December 2022 11:46
--- NOTE | 2022-12-14 11:57 | P.PN ---
Subjective Progress Note Date: 12/14/22 HISTORY OF PRESENTING ILLNESS Patient is pleasant 87-year-old male with no significant medical history who presents secondary to worsening lower extremity edema and shortness breath. He was actually seen at [facility] ER at [address] for similar symptoms approximately a week ago and was recommended to be transferred however patient left AMA. He states over the last 2 weeks he has been noticing increasing lower extremity edema as well as some shortness breath with exertion. He denies any chest pain or pressure. He was found to have kidney injury with creatinine 2.2, unclear baseline. Additionally hemoglobin 6.9 with unclear baseline. ProBNP 42,400. Additionally has been having erythema and some pain of the lower extremities with some nonhealing wounds. He denies any prior cardiac workup. Abdominal ultrasound does show concern of right hydronephrosis and left kidney not able to be fully seen secondary to overlying bowel gas. He does have some right lower abdomen distention and appears somewhat more full however he does not believe this is the case. No tobacco, rare alcohol, no illicit drugs, no family history. Has never been told he has heart failure before. Does not believe he has had kidney failure before. EKG shows sinus rhythm with LVH and nonspecific ST abnormalities. 12/14 Patient is seen today in follow-up. No new concerns. His renal function is about the same with BUN of 63 creatinine 2.38. Hemoglobin is 12.1. Nephrology and continued on IV Lasix 40 mg daily. Heart rate is in the 90s, blood pressure 145/63, pulse ox 90% on room air. Patient is in a negative fluid balance. Troponin 0.067. Echocardiogram reveals, severely reduced global LV systolic function. Inferior lateral hypokinesia. Moderate mitral regurgitation, moderate aortic regurgitation, moderate left atrial dilation. PHYSICAL EXAMINATION Vital signs reviewed. CONSTITUTIONAL: No apparent distress. HEENT: Head is normocephalic. Pupils are equal, round. Sclerae anicteric. Mucous membranes of the mouth are moist. No JVD. No carotid bruit. CHEST EXAMINATION: Lungs are clear to auscultation. No chest wall tenderness is noted on palpation or with deep breathing. HEART EXAMINATION: Regular rate and rhythm. S1, S2 heard. No murmurs, gallops or rub. ABDOMEN: Soft, nontender. Positive bowel sounds. +> RLQ abd distention EXTREMITIES: 2+ peripheral pulses, 2+ lower extremity edema with erythema and ulcer NEUROLOGIC EXAMINATION: Patient is awake, alert and oriented x3. ASSESSMENT 1. Acute on chronic heart failure presumed diastolic 2. Acute kidney injury secondary to ATN, cardiorenal syndrome and obstructive uropathy 3. Abnormal EKG with LVH 4. Newly diagnosed diabetes mellitus type 2, hemoglobin A1c 6.9 5. Right hydronephrosis 6. Right lower abdominal distention 7. Valvular heart disease with moderate mitral regurgitation, moderate aortic regurgitation PLAN Majority of symptoms appear related to heart failure. Continue with IV Lasix. Further recommendations to follow. Nurse practitioner note has been reviewed, I agree with the documented findings and plan of care. Patient was seen and examined. Objective - Vital Signs Vital signs: Vital Signs Temp 98.4 F 12/14/22 08:00 Pulse 94 12/14/22 08:00 Resp 17 12/14/22 08:00 BP 145/63 12/14/22 08:00 Pulse Ox 98 12/14/22 08:00 FiO2 Intake & Output 12/13/22 12/14/22 12/14/22 18:59 06:59 18:59 Intake Total 350 Output Total 2800 5600 Balance -2800 -5600 350 Weight 47.174 kg 49.5 kg Intake: Oral 350 Output: Urine 2800 5600 Straight 1300 Other: Voiding Method External Catheter Indwelling Catheter - Labs CBC & Chem 7: 12/14/22 07:49 12/14/22 07:49 Labs: Abnormal Lab Results - Last 24 Hours (Table) 12/13/22 12/13/22 12/13/22 Range/Units 10:49 11:52 18:22 RBC (4.30-5.90) m/uL Hgb (13.0-17.5) gm/dL Hct (39.0-53.0) % BUN 63 H (9-20) mg/dL Creatinine 2.25 H (0.66-1.25) mg/dL Glucose 110 H (74-99) mg/dL POC Glucose (mg/dL) 141 H (70-110) mg/dL Troponin I 0.067 H* (0.000-0.034) ng/mL 12/13/22 12/14/22 12/14/22 Range/Units 19:56 07:49 07:49 RBC 3.92 L (4.30-5.90) m/uL Hgb 12.1 L (13.0-17.5) gm/dL Hct 36.4 L (39.0-53.0) % BUN 63 H (9-20) mg/dL Creatinine 2.38 H (0.66-1.25) mg/dL Glucose 123 H (74-99) mg/dL POC Glucose (mg/dL) 144 H (70-110) mg/dL Troponin I (0.000-0.034) ng/mL
[2022-12-14 16:16] LABS: Glucose,Whole Blood 135 mg/dL (70-110)
--- NOTE | 2022-12-14 17:14 | P.PN ---
Subjective Progress Note Date: 12/14/22 (delayed charting seen at 1020) Patient is an 87-year-old male with no known past medical history who does not follow with doctors who presented to the ER due to bilateral lower extremity swelling and pain. On arrival to the ER he underwent an extensive evaluation. Initial vital signs were significant for tachycardia of 101. Initial laboratory analysis was remarkable for hemoglobin 12.3, BUN 59, creatinine 2.25, glucose 147, and BNP 42,400. Chest x-ray demonstrated cardiomegaly with pulmonary venous congestion and small bilateral pleural effusions. EKG showed normal sinus rhythm and no signs of ischemia. He was noted to have redness of bilateral lower extremities. He was diagnosed with bilateral looks pretty cellulitis and acute exacerbation of congestive heart failure. He was Lasix and vancomycin. Arrangements were made for admission. Patient seen and examined at bedside. He wants to go home.He denies any chest pain or shrotness of breath, no nasuea, or vomiting. Vital signs reviewed General: nontoxic, no distress, appears at stated age Cardiovascular: S1S2 reg with grade 2 systolic ejection murmur, positive posterior tibial pulse bilateral, Lungs: Coarse breath sounds bilateral, no rhonchi, no rales , no accessory muscle use Abdominal: soft,+ distended but non tender, no guarding, no appreciable organomegaly Ext: no gross muscle atrophy, 4+ edema bilateral lower extremities, bilateral lower extremity violaceous erythema with areas of caseous tissue, no contractures Neuro: CN II-XI grossly intact, no focal neuro deficits Psych: Alert, oriented, appropriate affect Assessment/Plan: Acute exacerbation of congestive heart failure Suspect bilateral peripheral vascular disease, possible component of lower e xtremity cellulitis b/l nephrosis, prostomegally, dilated bladder with bladder diverticulitis Elevated creatinine, acute kidney injury versus chronic kidney disease - Nephrology consultation reviewed continue with IV Lasix, check urinalysis. - Cardiology note reviewed: Case discussed with Dr. Montenegro. We'll decrease Lasix as patient had rapid improvement in lower extremity edema. Await echocard iogram. - Urology consultation reviewed: Patient is to go home with indwelling Edwards catheter, Flomax added to regimen, outpatient cystoscopy. - Lasix 40 mg IVP daily - Strict I and O, daily weights, - Vancomycin with pharmacy dosing, monitor for toxicity with trough and Cr levels - Await echo - Avoid additional nephrotoxic agents - Monitor for vancomycin toxicity closely, pharmacy to dose IV vancomycin based on trough levels. 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, large right bladder diverticulum with distended urinary bladder and trabeculated bladder wall, moderate bilateral hydrocele, moderate to large burden, small bilateral pleural effusions Abdominal ultrasound-moderate right sided hydrocodone midline fluid-filled collection possible bladder diverticulitis, cholelithiasis, left kidney not visualized Arterial ultrasound-brachial indices bilateral Data Review: Labs reviewed from today include CBC, basic metabolic profile, magnesium, and A1c which are remarkable for hemoglobin 12.2, BUN 63, creatinine 2.38 DVT prophylaxis: Discussed with: Anticipated discharge date: Anticipated discharge place: This dictation was prepared using [employer] voice recognition software. Though every attempt is made to correct errors during dictation some may still exist. Objective - Vital Signs Vital signs: Vital Signs Temp 98.1 F 12/14/22 15:34 Pulse 98 12/14/22 15:34 Resp 17 12/14/22 15:34 BP 125/65 12/14/22 15:34 Pulse Ox 98 12/14/22 15:34 FiO2 Intake & Output 12/13/22 12/14/22 12/14/22 18:59 06:59 18:59 Intake Total 350 Output Total 2800 5600 2675 Balance -2800 -5600 -2325 Weight 47.174 kg 49.5 kg 55.1 kg Intake: Oral 350 Output: Urine 2800 5600 2675 Straight 1300 Other: Voiding Method External Catheter Indwelling Catheter Indwelling Catheter - Labs CBC & Chem 7: 12/14/22 07:49 12/14/22 07:49 Labs: Abnormal Lab Results - Last 24 Hours (Table) 12/13/22 12/13/22 12/14/22 Range/Units 18:22 19:56 07:49 RBC (4.30-5.90) m/uL Hgb (13.0-17.5) gm/dL Hct (39.0-53.0) % BUN 63 H (9-20) mg/dL Creatinine 2.38 H (0.66-1.25) mg/dL Glucose 123 H (74-99) mg/dL POC Glucose (mg/dL) 144 H (70-110) mg/dL Troponin I 0.067 H* (0.000-0.034) ng/mL 12/14/22 12/14/22 12/14/22 Range/Units 07:49 11:18 16:15 RBC 3.92 L (4.30-5.90) m/uL Hgb 12.1 L (13.0-17.5) gm/dL Hct 36.4 L (39.0-53.0) % BUN (9-20) mg/dL Creatinine (0.66-1.25) mg/dL Glucose (74-99) mg/dL POC Glucose (mg/dL) 153 H 135 H (70-110) mg/dL Troponin I (0.000-0.034) ng/mL Microbiology - Last 24 Hours (Table) 12/13/22 01:20 Blood Culture - Preliminary Blood 12/13/22 01:00 Blood Culture - Preliminary Blood
[2022-12-14] MEDS ORDERED: TAMSULOSIN 0.4 MG CAP.ER.24H PO SCH (18:30)
[2022-12-14 19:37] LABS: Glucose,Whole Blood 168 mg/dL (70-110)
[2022-12-14 21:41] LABS: RBC,Urine >182 /hpf (0-5); WBC,Urine 81 /hpf (0-5)
[2022-12-14 21:43] LABS: Appearance,Urine Cloudy (Clear)
[2022-12-14 21:44] LABS: Color,Urine Dark Red
[2022-12-15 06:10] LABS: Glucose,Whole Blood 113 mg/dL (70-110)
[2022-12-15] MEDS: INSULIN ASPART (NovoLOG) 100 UNIT/ML VIAL SQ SCH ×2 (06:17→12:44)
[2022-12-15] MEDS ORDERED: FUROSEMIDE 10 MG/ML 4 ML VIAL IV SCH (09:00)
[2022-12-15] MEDS: ENOXAPARIN 30 MG/0.3 ML SYRINGE SQ SCH ×2 (09:01→09:02)
[2022-12-15 09:48] LABS: African American GFR (CKD) 39 (>60 ml/min/1.73 sqM); Anion Gap 9 mmol/L; Blood Urea Nitrogen 58 mg/dL (9-20); Calcium 8.2 mg/dL (8.4-10.2); Carbon Dioxide 28 mmol/L (22-30); Chloride 99 mmol/L (98-107); Glucose 161 mg/dL (74-99); Non-African American GFR(CKD) 34 (>60 ml/min/1.73 sqM); Potassium 3.8 mmol/L (3.5-5.1); Sodium 136 mmol/L (137-145)
[2022-12-15] MEDS ORDERED: carvediloL 3.125 MG TAB PO SCH (10:30)
[2022-12-15 10:59] VITALS: RESP 17
[2022-12-15] MEDS ORDERED: VANCOMYCIN 1,000 MG in SODIUM CHLORIDE 0.9% 250 ML IVPB ONE (11:00)
[2022-12-15 11:26] LABS: Glucose,Whole Blood 186 mg/dL (70-110)
[2022-12-15 11:37] VITALS: BP 112/42; PULSE 75; TEMP 98.4
--- NOTE | 2022-12-15 12:16 | P.PN ---
Subjective Progress Note Date: 12/15/22 HISTORY OF PRESENTING ILLNESS Patient is pleasant 87-year-old male with no significant medical history who presents secondary to worsening lower extremity edema and shortness breath. He was actually seen at [facility] ER [place] [address] for similar symptoms approximately a week ago and was recommended to be transferred however patient left AMA. He states over the last 2 weeks he has been noticing increasing lower extremity edema as well as some shortness breath with exertion. He denies any chest pain or pressure. He was found to have kidney injury with creatinine 2.2, unclear baseline. Additionally hemoglobin 6.9 with unclear baseline. ProBNP 42,400. Additionally has been having erythema and some pain of the lower extremities with some nonhealing wounds. He denies any prior cardiac workup. Abdominal ultrasound does show concern of right hydronephrosis and left kidney not able to be fully seen secondary to overlying bowel gas. He does have some right lower abdomen distention and appears somewhat more full however he does not believe this is the case. No tobacco, rare alcohol, no illicit drugs, no family history. Has never been told he has heart failure before. Does not believe he has had kidney failure before. EKG shows sinus rhythm with LVH and nonspecific ST abnormalities. 12/14 Patient is seen today in follow-up. No new concerns. His renal function is about the same with BUN of 63 creatinine 2.38. Hemoglobin is 12.1. Nephrology and continued on IV Lasix 40 mg daily. Heart rate is in the 90s, blood pressure 145/63, pulse ox 90% on room air. Patient is in a negative fluid balance. Troponin 0.067. Echocardiogram reveals, severely reduced global LV systolic function. Inferior lateral hypokinesia. Moderate mitral regurgitation, moderate aortic regurgitation, moderate left atrial dilation. 12/15 Patient denies chest pain, shortness of breath and not requiring oxygen. Lower extremity edema is improved. Patient has been walking in the hallways and doing well. He has been maintained on IV Lasix. Heart rate is in the 60s and 70s, blood pressure 112/42, pulse ox 97% on room air. Repeat blood work reveals BUN 58 creatinine 1.77, potassium 3.8. PHYSICAL EXAMINATION Vital signs reviewed. CONSTITUTIONAL: No apparent distress. HEENT: Head is normocephalic. Pupils are equal, round. Sclerae anicteric. Mucous membranes of the mouth are moist. No JVD. No carotid bruit. CHEST EXAMINATION: Lungs are clear to auscultation. No chest wall tenderness is noted on palpation or with deep breathing. HEART EXAMINATION: Regular rate and rhythm. S1, S2 heard. No murmurs, gallops or rub. ABDOMEN: Soft, nontender. Positive bowel sounds. +> RLQ abd distention EXTREMITIES: 2+ peripheral pulses, trace lower extremity edema NEUROLOGIC EXAMINATION: Patient is awake, alert and oriented x3. ASSESSMENT 1. Acute on chronic heart failure presumed diastolic 2. Acute kidney injury secondary to ATN, cardiorenal syndrome and obstructive uropathy 3. Abnormal EKG with LVH 4. Newly diagnosed diabetes mellitus type 2, hemoglobin A1c 6.9 5. Right hydronephrosis 6. Right lower abdominal distention 7. Valvular heart disease with moderate mitral regurgitation, moderate aortic regurgitation PLAN Majority of symptoms appear related to heart failure. May transition IV Lasix to oral Patient is cleared for discharge from cardiology may follow-up in the office in one to 2 weeks. Nurse practitioner note has been reviewed, I agree with the documented findings and plan of care. Patient was seen and examined. Objective - Vital Signs Vital signs: Vital Signs Temp 97.5 F L 12/15/22 08:00 Pulse 79 12/15/22 08:00 Resp 17 12/15/22 08:00 BP 116/48 12/15/22 08:00 Pulse Ox 97 12/15/22 08:00 FiO2 Intake & Output 12/14/22 12/15/22 12/15/22 18:59 06:59 18:59 Intake Total 350 0 Output Total 2675 1850 Balance -2325 -1850 0 Weight 55.1 kg 56.1 kg Intake: Oral 350 0 Output: Urine 2675 1850 Other: Voiding Method Indwelling Catheter Indwelling Catheter - Labs CBC & Chem 7: 12/14/22 07:49 12/15/22 08:25 Labs: Abnormal Lab Results - Last 24 Hours (Table) 12/14/22 12/14/22 12/14/22 Range/Units 15:16 16:15 19:35 Sodium (137-145) mmol/L BUN (9-20) mg/dL Creatinine (0.66-1.25) mg/dL Glucose (74-99) mg/dL POC Glucose (mg/dL) 135 H 168 H (70-110) mg/dL Calcium (8.4-10.2) mg/dL Urine RBC >182 H (0-5) /hpf Urine WBC 81 H (0-5) /hpf 12/15/22 12/15/22 Range/Units 06:06 08:25 Sodium 136 L (137-145) mmol/L BUN 58 H (9-20) mg/dL Creatinine 1.77 H (0.66-1.25) mg/dL Glucose 161 H (74-99) mg/dL POC Glucose (mg/dL) 113 H (70-110) mg/dL Calcium 8.2 L (8.4-10.2) mg/dL Urine RBC (0-5) /hpf Urine WBC (0-5) /hpf Microbiology - Last 24 Hours (Table) 12/13/22 01:20 Blood Culture - Preliminary Blood 12/13/22 01:00 Blood Culture - Preliminary Blood
--- NOTE | 2022-12-15 12:27 | P.DS ---
Providers Date of admission: 12/12/22 20:44 Expected date of discharge: 12/15/22 Attending physician: Amanda Mott MD Consults: 12/13/22 00:40 Consult Physician Urgent Consulting Provider: Doyle Rossi Consult Reason/Comments: CHF Do you want consulting provider notified?: Yes 12/13/22 17:06 Consult Physician Routine Consulting Provider: Emely Reardon Consult Reason/Comments: re: CKD Do you want consulting provider notified?: Yes, Notify in am 12/13/22 18:20 Consult Physician Routine Consulting Provider: Robin Dover Consult Reason/Comments: right hydroneohrosis Do you want consulting provider notified?: Yes Primary care physician: Stated None Hospital Course: Discharge Diagnosis: Acute exacerbation of congestive heart failure Suspect bilateral peripheral vascular disease, lower extremity cellultis b/l nephrosis, prostomegally, dilated bladder with bladder diverticulum Acute kidney injury due to bladder outlet obstruction Mild diabetes. A1C 6.9 Hospital Course: Patient is an 87-year-old male with no known past medical history who does not follow with doctors who presented to the ER due to bilateral lower extremity swelling and pain. On arrival to the ER he underwent an extensive evaluation. Initial vital signs were significant for tachycardia of 101. Initial laboratory analysis was remarkable for hemoglobin 12.3, BUN 59, creatinine 2.25, glucose 147, and BNP 42,400. Chest x-ray demonstrated cardiomegaly with pulmonary venous congestion and small bilateral pleural effusions. EKG showed normal sinus rhythm and no signs of ischemia. He was noted to have redness of bilateral lower extremities. He was diagnosed with bilateral lower extremity cellulitis and acute exacerbation of congestive heart failure. He was started on Lasix and vancomycin. Arrangements were made for admission. He was continued on IV Lasix. He was found to have acute exacerbation of systolic co ngestive heart failure. He was also found to have a bladder outlet obstruction and acute renal failure. A Xiong catheter was placed and he was started on Flomax. He was seen by urology, nephrology, and cardiology. He continued to progress well. He was determined stable for discharge home. Imaging: CT abdomen and pelvis on chronic bladder outlet obstruction secondary to prostamegaly, bladder diverticulum, moderate bilateral hydronephrosis, large stool burden, small bilateral pleural effusions Bilateral lower extremity ABIs: Normal ABIs Echo: Ejection fraction 20-25%, inferior lateral hypokinesia Abdominal ultrasound: Moderate right-sided hydronephrosis, midline fluid-filled collection which may represent urinary bladder diverticulum, cholelithiasis Follow-up: needs to establish with a PCP on discharge- woud benefit from home health, follow with Dr. Montenegro in 1 week, Dr. Elder in 1 week, Dr Reardon in 1 week, BMP in 1 week with results to Dr. Reardon, muporicin ointment three times daily for the next week to bilateral lower extremity wounds. He will continue with his chronic indwelling Xiong. Repat A1C in 3 months. Patient seen and examined at bedside. He is doing well. He wants to go home. I went over in detail why he required xiong on discharge and his echo results. All questions answered Vital signs reviewed and stable. General: nontoxic, no distress, appears at stated age Cardiovascular: S1S2 reg, no murmur, positive posterior tibial pulse bilateral, b/l LE erythem and small stage 1 wounds Lungs: CTA bilateral, no rhonchi, no rales , no accessory muscle use Abdominal: soft, nontender to palpation, no guarding, no appreciable organomegaly Ext: no gross muscle atrophy, 1+ edema b/l lower extremities, no contractures Neuro: CN II-XI grossly intact, no focal neuro deficits Psych: Alert, oriented, appropriate affect A total of 37 minutes of time were spent preparing this complex discharge summary. Patient was discharged on 12/15/22. This dictation was prepared using [employer] voice recognition software. Though every attempt is made to correct errors during dictation some may still exist. Plan - Discharge Summary Discharge Rx Participant: No New Discharge Prescriptions: New Tamsulosin [Flomax] 0.4 mg PO PC-SUPPER #30 cap Empagliflozin [Jardiance] 10 mg PO DAILY #30 tablet Furosemide [Lasix] 20 mg PO DAILY #30 tab Mupirocin 2% Oint [Bactroban 2% Oint] 1 applic TOPICAL TID 7 Days #22 gm Continue Melatonin(Unknown Dose) 1 tab PO HS PRN PRN Reason: Insomnia Discharge Medication List Melatonin(Unknown Dose) 1 tab PO HS PRN 12/12/22 [History] Empagliflozin [Jardiance] 10 mg PO DAILY #30 tablet 12/15/22 [Rx] Furosemide [Lasix] 20 mg PO DAILY #30 tab 12/15/22 [Rx] Mupirocin 2% Oint [Bactroban 2% Oint] 1 applic TOPICAL TID 7 Days #22 gm 12/15/22 [Rx] Tamsulosin [Flomax] 0.4 mg PO PC-SUPPER #30 cap 12/15/22 [Rx] Follow up Appointment(s)/Referral(s): Drew Montenegro DO [STAFF PHYSICIAN] - 1 Week None,Stated [Primary Care Provider] - 1-2 days Mona Crandall MD [STAFF PHYSICIAN] - 1 Week Ignacio Elder MD [STAFF PHYSICIAN] - 1 Week Ambulatory/Diagnostic Orders: Comprehensive Metabolic Panel [LAB.AMB] Time Frame: 5 Days, Location: None Selected Patient Instructions/Handouts: Heart Failure (DC), Xiong Catheter Placement and Care (DC), How to Change a Catheter Drainage Bag (DC) Activity/Diet/Wound Care/Special Instructions: Activity: As tolerated Diet: Heart Healthy, 2 liter fluid restriction Special Instructions: Please call Dr. Crandall's office on Saturday for an appointment Always keep your catheter below your bladder Repeat Blood work in 3 days with results to Dr. Reardon (nephrology) Check your weight daily and call Dr. Montenegro's office if you gain more than 3 pounds in 1 day or 5 pounds in 3 days Check Blood pressure every 24-24 hours and make a log to bring with you for your appointment with Dr. Montenegro. Discharge Disposition: HOME SELF-CARE
== END 2022-12-15 14:25 | disposition home or self-care (01) | DRG 291 ==
LOC: EC 14:39 → 3SCARD 20:44
PROVIDERS: ADMIT Family Medicine; ATTEND Family Medicine
DX: I11.0 Hypertensive heart disease with heart failure (principal); I50.43 Acute on chronic combined systolic (congestive) and diastolic (congestive) heart failure; N17.0 Acute kidney failure with tubular necrosis; L03.115 Cellulitis of right lower limb; L03.116 Cellulitis of left lower limb; N13.6 Pyonephrosis; F41.9 Anxiety disorder, unspecified; I08.0 Rheumatic disorders of both mitral and aortic valves; I13.0 Hypertensive heart and chronic kidney disease with heart failure and stage 1 through stage 4 chronic kidney disease, or unspecified chronic kidney disease; R94.31 Abnormal electrocardiogram [ECG] [EKG]; E11.65 Type 2 diabetes mellitus with hyperglycemia; I42.8 Other cardiomyopathies; N18.9 Chronic kidney disease, unspecified; N32.0 Bladder-neck obstruction; N32.3 Diverticulum of bladder; N32.89 Other specified disorders of bladder; N40.0 Benign prostatic hyperplasia without lower urinary tract symptoms; J44.9 Chronic obstructive pulmonary disease, unspecified; Z79.899 Other long term (current) drug therapy; E11.22 Type 2 diabetes mellitus with diabetic chronic kidney disease
CPT/HCPCS: 36415; 71046; 74176; 76700; 80048; 80053; 80202; 81001; 83036; 83735; 83880; 84484; 85025; 87040; 93005; 93306; 93922; 96365; 96366; 96372; 96375; 96376; 99285

== ENCOUNTER → 2022-12-18 | Outpatient (CLI) | payer MEDICARE ==
[2022-12-18 19:09] LABS: ALT 31 U/L (10-49); AST 24 U/L (14-35); Albumin 3.6 d/dL (3.8-4.9); Albumin/Globulin Ratio 1.44 Ratio (1.60-3.17); Alkaline Phosphatase 85 U/L (41-126); BUN/Creat Ratio 30.67 Ratio (12.00-20.00); Blood Urea Nitrogen 55.2 mg/dL (9.0-27.0); Calcium 8.7 mg/dL (8.7-10.3); Carbon Dioxide 26.7 mmol/L (21.6-31.8); Chloride 102 mmol/L (96-109); Globulin 2.5 d/dL (1.6-3.3); Glucose 138 mg/dL (70-110); Potassium 3.8 mmol/L (3.5-5.5); Sodium 142 mmol/L (135-145); Total Bilirubin <0.2 mg/dL (0.3-1.2); Total Protein 6.1 d/dL (6.2-8.2)
== END | disposition home or self-care (01) ==
LOC: LABWHC1 16:08
PROVIDERS: ATTEND Internal Medicine
DX: N17.9 Acute kidney failure, unspecified (principal)
CPT/HCPCS: 36415; 80053

== ENCOUNTER 2023-01-21 18:32 | Inpatient (IN) | payer MEDICARE ==
--- NOTE | 2023-01-21 19:21 | ED ---
General Adult HPI - General Chief complaint: Recheck/Abnormal Lab/Rx Stated complaint: Kidney Failure Time Seen by Provider: 01/21/23 19:11 Source: patient, family, RN notes reviewed Mode of arrival: ambulatory Limitations: no limitations - History of Present Illness Initial comments: This is an 87 year old male who presents to the emergency department for a decreased appetite and abnormal labs. Patient presented to the ED at [facility] this morning for weakness and a decreased appetite. He was found to have a UTI, low potassium, and poor kidney function. He is established with urology and cardiology at our facility, and requested transfer here for further care. He presents here as an ED to ED transfer. He does follow with Dr. Montenegro, cardiology, and had his Lasix dose increased about a week ago for swelling in his bilateral lower extremities. The swelling has improved, however the family wonders if the Lasix caused the kidney problems. He does also have a Edwards catheter and follows with Dr. Elder. He is scheduled to have this removed short ly. MD Complaint: Decreased kidney function, poor appetite - Related Data Home Medications Medication Instructions Recorded Confirmed Melatonin(Unknown Dose) 1 tab PO HS PRN 12/12/22 01/21/23 Aspirin 81 mg PO DAILY 01/21/23 01/21/23 Metoprolol Succinate [Metoprolol 12.5 mg PO DAILY 01/21/23 01/21/23 Succinate ER] Tamsulosin [Flomax] 0.4 mg PO DAILY 01/21/23 01/21/23 Previous Rx's Medication Instructions Recorded Empagliflozin [Jardiance] 10 mg PO DAILY #30 tablet 12/15/22 Furosemide [Lasix] 20 mg PO DAILY #30 tab 12/15/22 Allergies Allergy/AdvReac Type Severity Reaction Status Date / Time No Known Allergies Allergy Verified 01/21/23 22:40 Review of Systems ROS Statement: Those systems with pertinent positive or pertinent negative responses have been documented in the HPI. ROS Other: All systems not noted in ROS Statement are negative. Past Medical History Past Medical History: Hypertension Additional Past Medical History / Comment(s): pt states that he hasn't been to a PCP in 10 years History of Any Multi-Drug Resistant Organisms: None Reported Past Surgical History: No Surgical Hx Reported Past Anesthesia/Blood Transfusion Reactions: No Reported Reaction, Unable to Obtain Additional Past Anesthesia/Blood Transfusion Reaction / Comment(s): pt has never had a blood transfusion Past Psychological History: Anxiety Smoking Status: Never smoker Past Alcohol Use History: Rare Past Drug Use History: None Reported - Past Family History Father Family Medical History: Dementia Mother Family Medical History: Cancer General Exam - General Exam Comments Initial Comments: Visual Physical Exam Vital signs reviewed General: Well-appearing, nontoxic, no acute distress. Head: Normocephalic, atraumatic Eyes: PERRLA, EOMI ENT: Airway patent Chest: Nonlabored breathing Skin: No visual rash, normal skin tone Neuro: Alert and oriented 3 Musculoskeletal: No gross abnormalities Limitations: no limitations General appearance: alert, in no apparent distress Head exam: Present: atraumatic, normocephalic, normal inspection Respiratory exam: Present: normal lung sounds bilaterally. Absent: respiratory distress, wheezes, rales, rhonchi, stridor Cardiovascular Exam: Present: regular rate, normal rhythm, normal heart sounds. Absent: systolic murmur, diastolic murmur, rubs, gallop, clicks GI/Abdominal exam: Present: soft, normal bowel sounds. Absent: distended, tenderness, guarding, rebound, rigid Extremities exam: Absent: pedal edema Neurological exam: Present: alert, oriented X3, CN II-XII intact Psychiatric exam: Present: normal affect, normal mood Skin exam: Present: warm, dry, intact, normal color. Absent: rash Course Vital Signs 01/21/23 19:11 Temperature 98.8 F Pulse Rate 63 Respiratory 18 Rate Blood Pressure 127/61 O2 Sat by Pulse 98 Oximetry Medical Decision Making - Medical Decision Making This is an 87-year-old male who presents to the emergency department for poor kidney function. Was pt. sent in by a medical professional or institution? @ -[facility] Did you speak to anyone other than the patient for history? @ -No Did you review nursing and triage notes? @ -Yes, and I agree, it is accurate with regards to the patient's symptoms. Were old charts reviewed? @ -Records sent with the patient from [facility]. This demonstrated a WBC of 14.5, neutrophils of 12.1, immature granulocytes of 0.21, potassium of 2.7, BUN of 126, Creatinine of 3.51, eGFR of 16, high sensitivity troponin was 81, BNP was 1092, and UA was positive for infection. He was given 40 mEq of K-dur, 1L bolus of IV fluids, and 1g of Ceftriaxone for the UTI. Differential Diagnosis? @ -Differential SUJIT: Medications, dehydration, infection, this is not meant to be an all-inclusive list. EKG interpreted by me (3pts min.)? @ -EKG interpreted by me demonstrating the following: Sinus rhythm. Ventricular rate 72 BPM, RI interval 165 ms, QRS duration 116 ms, QTc 388 ms. X-rays interpreted by me (1pt min.)? @ -Chest x-ray obtained, my interpretation identifies no localized consolidations or infiltrates. CT interpreted by me (1pt min.)? @ -Not obtained U/S interpreted by me (1pt. min.)? @ -Not obtained What testing was considered but not performed? (CT, X-rays, U/S, labs)? Why? @ -None What meds were considered but not given? Why? @ -None Did you discuss the management of the patient with other professionals? @ -Yes, Heather Pierre with [facility] who accepts the patient for admission. Did you reconcile home meds? @ -Yes Was smoking cessation discussed for >3mins.? @ -No Was critical care preformed (if so, how long)? @ -No Were there social determinants of health that impacted care today? How? (Homelessness, low income, unemployed, alcoholism, drug addiction, transp ortation, low edu. Level, literacy, decrease access to med. care, fpc, rehab)? @ -No Was there de-escalation of care discussed even if they declined? (Discuss DNR or withdrawal of care, Hospice)? @ -No What co-morbidities impacted this encounter? (DM, HTN, Smoking, COPD, CAD, Cancer, CVA, Hep., AIDS, mental health diagnosis, sleep apnea, morbid obesity)? @ -CKD, HTN, CHF Was patient admitted / discharged? @ -Admitted. Lab work obtained revealing leukocytosis, hypokalemia with a potassium of 2.8, an SUJIT with a BUN of 113, Creatinine of 2.95, and eGFR [place] 18[place] [address] and troponin is elevated at 0.085, which is likely secondary to the SUJIT and elevated BNP. Urinalysis is consistent with infection. Chest x-ray obtained revealing no acute process, including no evidence of pleural effusions to suggest fluid overload. He was given 40 mEq of K-dur. He was also started on maintenance fluids at 75 mL per hour. Patient admitted to medicine for SUJIT, hypokalemia, UTI, and elevated troponin. He had already been given a dose of ceftriaxone at [facility]. Serial troponins were ordered. Consult placed for nephrology. Undiagnosed new problem with uncertain prognosis? @ -None Drug Therapy requiring intensive monitoring for toxicity (Heparin, Nitro, Insulin, Cardizem)? @ -None Were any procedures done? @ -None Diagnosis/symptom? @ -SUJIT, UTI, hypokalemia, elevated troponin Acute, or Chronic, or Acute on Chronic? @ -Acute Uncomplicated (without systemic symptoms) or Complicated (systemic symptoms)? @ -Complicated Side effects of treatment? @ -None Exacerbation, Progression, or Severe Exacerbation] @ -Not applicable Poses a threat to life or bodily function? @ -Yes This case was discussed in detail with the attending ED physician, Dr. Nielsen. Presentation, findings, and treatment plan discussed in detail as well. - Lab Data Result diagrams: 01/21/23 19:30 01/21/23 19:30 Lab Results 01/21/23 01/21/23 01/21/23 Range/Units 19:30 19:30 19:30 WBC 14.8 H (3.8-10.6) k/uL RBC 4.55 (4.30-5.90) m/uL Hgb 13.0 (13.0-17.5) gm/dL Hct 40.3 (39.0-53.0) % MCV 88.6 (80.0-100.0) fL MCH 28.6 (25.0-35.0) pg MCHC 32.3 (31.0-37.0) g/dL RDW 13.1 (11.5-15.5) % Plt Count 326 (150-450) k/uL MPV 8.4 Neutrophils % 83 % Lymphocytes % 13 % Monocytes % 2 % Eosinophils % 1 % Basophils % 0 % Neutrophils # 12.3 H (1.3-7.7) k/uL Lymphocytes # 1.9 (1.0-4.8) k/uL Monocytes # 0.4 (0-1.0) k/uL Eosinophils # 0.1 (0-0.7) k/uL Basophils # 0.0 (0-0.2) k/uL PT 11.4 (10.0-12.5) sec INR 1.0 (<1.2) APTT 23.4 (22.0-30.0) sec Sodium 142 (137-145) mmol/L Potassium 2.8 L (3.5-5.1) mmol/L Chloride 105 (98-107) mmol/L Carbon Dioxide 24 (22-30) mmol/L Anion Gap 13 mmol/L BUN 113 H* (9-20) mg/dL Creatinine 2.95 H (0.66-1.25) mg/dL Est GFR (CKD-EPI)AfAm 21 (>60 ml/min/1.73 sqM) Est GFR (CKD-EPI)NonAf 18 (>60 ml/min/1.73 sqM) Glucose 106 H (74-99) mg/dL Calcium 8.1 L (8.4-10.2) mg/dL Total Bilirubin 0.5 (0.2-1.3) mg/dL AST 35 (17-59) U/L ALT 36 (4-49) U/L Alkaline Phosphatase 91 (38-126) U/L Troponin I (0.000-0.034) ng/mL NT-Pro-B Natriuret Pep 54450 pg/mL Total Protein 5.9 L (6.3-8.2) g/dL Albumin 3.1 L (3.5-5.0) g/dL 01/21/23 Range/Units 19:30 WBC (3.8-10.6) k/uL RBC (4.30-5.90) m/uL Hgb (13.0-17.5) gm/dL Hct (39.0-53.0) % MCV (80.0-100.0) fL MCH (25.0-35.0) pg MCHC (31.0-37.0) g/dL RDW (11.5-15.5) % Plt Count (150-450) k/uL MPV Neutrophils % % Lymphocytes % % Monocytes % % Eosinophils % % Basophils % % Neutrophils # (1.3-7.7) k/uL Lymphocytes # (1.0-4.8) k/uL Monocytes # (0-1.0) k/uL Eosinophils # (0-0.7) k/uL Basophils # (0-0.2) k/uL PT (10.0-12.5) sec INR (<1.2) APTT (22.0-30.0) sec Sodium (137-145) mmol/L Potassium (3.5-5.1) mmol/L Chloride (98-107) mmol/L Carbon Dioxide (22-30) mmol/L Anion Gap mmol/L BUN (9-20) mg/dL Creatinine (0.66-1.25) mg/dL Est GFR (CKD-EPI)AfAm (>60 ml/min/1.73 sqM) Est GFR (CKD-EPI)NonAf (>60 ml/min/1.73 sqM) Glucose (74-99) mg/dL Calcium (8.4-10.2) mg/dL Total Bilirubin (0.2-1.3) mg/dL AST (17-59) U/L ALT (4-49) U/L Alkaline Phosphatase (38-126) U/L Troponin I 0.085 H* (0.000-0.034) ng/mL NT-Pro-B Natriuret Pep pg/mL Total Protein (6.3-8.2) g/dL Albumin (3.5-5.0) g/dL - Radiology Data Radiology results: report reviewed, image reviewed Disposition Clinical Impression: Hypokalemia, SUJIT (acute kidney injury), UTI (urinary tract infection), Elevated troponin Disposition: ADMITTED IP TO THIS HOSP
[2023-01-21 19:45] LABS: Basophils % (A) 0 %; Eosinophils # (A) 0.1 k/uL (0-0.7); Eosinophils % (A) 1 %; HCT 40.3 % (39.0-53.0); Lymphocytes # (A) 1.9 k/uL (1.0-4.8); Lymphocytes % (A) 13 %; MCH 28.6 pg (25.0-35.0); MCHC 32.3 g/dL (31.0-37.0); MCV 88.6 fL (80.0-100.0); Mean Platelet Volume 8.4; Monocytes # (A) 0.4 k/uL (0-1.0); Monocytes % (A) 2 %; Neutrophils # (A) 12.3 k/uL (1.3-7.7); Neutrophils % (A) 83 %; Platelet Count 326 k/uL (150-450); RBC 4.55 m/uL (4.30-5.90); RDW 13.1 % (11.5-15.5); WBC 14.8 k/uL (3.8-10.6)
[2023-01-21 19:57] LABS: ALT 36 U/L (4-49); AST 35 U/L (17-59); African American GFR (CKD) 21 (>60 ml/min/1.73 sqM); Albumin 3.1 g/dL (3.5-5.0); Alkaline Phosphatase 91 U/L (38-126); Anion Gap 13 mmol/L; Calcium 8.1 mg/dL (8.4-10.2); Carbon Dioxide 24 mmol/L (22-30); Chloride 105 mmol/L (98-107); Glucose 106 mg/dL (74-99); Non-African American GFR(CKD) 18 (>60 ml/min/1.73 sqM); Potassium 2.8 mmol/L (3.5-5.1); Sodium 142 mmol/L (137-145); Total Bilirubin 0.5 mg/dL (0.2-1.3); Total Protein 5.9 g/dL (6.3-8.2)
[2023-01-21 20:05] LABS: NT-Pro-B-Type Natriuretic Pept 22700 pg/mL
[2023-01-21 20:07] LABS: Blood Urea Nitrogen 113 mg/dL (9-20)
[2023-01-21] MEDS ORDERED: POTASSIUM CHLORIDE ER 20 MEQ TAB.ER PO STA (20:43)
[2023-01-21] MEDS ORDERED: ACETAMINOPHEN TAB 325 MG TAB PO PRN (21:48)
[2023-01-21] MEDS ORDERED: ONDANSETRON 4 MG/2 ML VIAL IVP PRN (21:48)
[2023-01-21] MEDS ORDERED: HYDROcodone/APAP 5-325MG 1 EACH TAB PO PRN (21:48)
[2023-01-21] MEDS ORDERED: NALOXONE 0.4 MG/ML 1 ML VIAL IV PRN (21:48)
--- NOTE | 2023-01-21 21:57 | XR ---
EXAMINATION TYPE: XR chest 2V DATE OF EXAM: 01/21/2023 9:37 PM CLINICAL INDICATION:Male, 87 years old with history of Weakness, chf; PHH COMPARISON: Chest radiographs from 12/12/2022 TECHNIQUE: XR chest 2V Frontal and lateral views of the chest. FINDINGS: Lungs/Pleura: Prominent interstitial lung markings are seen scattered throughout the lungs with gianna ening of the diaphragm and increased lucency of the lung apices. No evidence of focal consolidation, pneumothorax or pleural effusion. Pulmonary vascularity: Unremarkable. Heart/mediastinum: Cardiomediastinal silhouette is prominent in size. Musculoskeletal: No acute osseous pathology. Other findings: None IMPRESSION: 1. No acute cardiopulmonary disease process. 2. COPD changes.
[2023-01-21 21:58] LABS: Partial Thromboplastin Time 23.4 sec (22.0-30.0); Prothrombin Time 11.4 sec (10.0-12.5)
[2023-01-21] MEDS ORDERED: SODIUM CHLORIDE 0.9% 1,000 ML IV STA (22:10)
[2023-01-21] MEDS ORDERED: MELATONIN PO PRN (23:01)
[2023-01-22 00:06] LABS: Bacteria,Urine Few /hpf; Hyaline Casts,Urine 5 /lpf (0-2); RBC,Urine 65 /hpf (0-5); WBC,Urine >182 /hpf (0-5)
[2023-01-22 00:12] LABS: Appearance,Urine Cloudy (Clear); Color,Urine Colorless
[2023-01-22 00:13] LABS: Bilirubin,Urine Negative (Negative); Blood,Urine Moderate (Negative); Glucose,Urine (UA) Trace (Negative); Ketones,Urine Negative (Negative); Protein,Urine 2+ (Negative); Urobilinogen,Urine 0.2 mg/dL (<2.0)
[2023-01-22 00:14] LABS: Leukocyte Esterase,Urine Large (Negative); Nitrite,Urine Negative (Negative)
[2023-01-22] MEDS: ASPIRIN 81 MG PO SCH ×2 (08:32→08:36)
[2023-01-22] MEDS: METOPROLOL TARTRATE 12.5 MG TAB PO SCH ×2 (08:32→08:36)
[2023-01-22] MEDS: TAMSULOSIN 0.4 MG CAP.ER.24H PO SCH ×2 (08:32→08:36)
[2023-01-22] MEDS ORDERED: DEXTROSE 50% SYRINGE 50 ML IVP PRN ×2 (08:44)
[2023-01-22] MEDS ORDERED: METOPROLOL TARTRATE 12.5 MG TAB PO SCH (09:00)
[2023-01-22] MEDS ORDERED: DAPAGLIFLOZIN PROPANEDIOL 5 MG TABLET PO SCH (09:00)
--- NOTE | 2023-01-22 10:53 | P.NPCON ---
History of Present Illness - Reason for Consult acute renal failure - History of Present Illness Patient is an 87-year-old male with history of CHF, hypertension, chronic kidney disease NKF stage IV with previous creatinine at 1.7 mg/dL on 12/15/2002. It appears that patient had increased lower extremity edema recently for which diuretics were increased as outpatient. He comes in now due to abnormal labs and worsening renal function. Serum creatinine increased to 2.95 mg/dL, potassium was low at 2.8. Blood pressure is not low No history of use of NSAIDs No significant urinary symptoms. Patient has an indwelling Edwards catheter. He follows with urology, Dr. Elder Currently receiving IV fluids. Patient complained of cough. No fever or chills. Review of Systems As per HPI Past Medical History Past Medical History: Hypertension Additional Past Medical History / Comment(s): pt states that he hasn't been to a PCP in 10 years History of Any Multi-Drug Resistant Organisms: None Reported Past Surgical History: No Surgical Hx Reported Past Anesthesia/Blood Transfusion Reactions: No Reported Reaction, Unable to Obtain Additional Past Anesthesia/Blood Transfusion Reaction / Comment(s): pt has never had a blood transfusion Past Psychological History: Anxiety Smoking Status: Never smoker Past Alcohol Use History: Rare Past Drug Use History: None Reported - Past Family History Father Family Medical History: Dementia Mother Family Medical History: Cancer Medications and Allergies Home Medications Medication Instructions Recorded Confirmed Type Melatonin(Unknown Dose) 1 tab PO HS PRN 12/12/22 01/21/23 History Empagliflozin [Jardiance] 10 mg PO DAILY #30 tablet 12/15/22 01/21/23 Rx Furosemide [Lasix] 20 mg PO DAILY #30 tab 12/15/22 01/21/23 Rx Aspirin 81 mg PO DAILY 01/21/23 01/21/23 History Metoprolol Succinate [Metoprolol 12.5 mg PO DAILY 01/21/23 01/21/23 History Succinate ER] Tamsulosin [Flomax] 0.4 mg PO DAILY 01/21/23 01/21/23 History Allergies Allergy/AdvReac Type Severity Reaction Status Date / Time No Known Allergies Allergy Verified 01/21/23 22:40 Physical Exam Vitals: Vital Signs Temp Pulse Resp BP Pulse Ox 01/22/23 08:36 55 L 18 129/88 98 01/22/23 06:39 98.6 F 90 18 150/64 96 01/21/23 19:11 98.8 F 63 18 127/61 98 Intake and Output 01/21/23 01/22/23 01/22/23 22:59 06:59 14:59 Other: Voiding Method Indwelling Catheter Weight 55.338 kg 55.338 kg Patient is awake, comfortable, no acute distress Examination of the heart S1 and S2 Examination of the lungs bilateral breath sounds are heard Abdomen is soft nontender Examination of lower extremities shows no significant edema STATION TENDER exam grossly intact Results - Lab Results Most recent lab results Calcium 8.1 mg/dL (8.4-10.2) L 01/21/23 19:30 01/21/23 19:30 01/21/23 19:30 Assessment and Plan Assessment: 1. Acute kidney injury secondary to her recent diuresis. Blood pressure is not low. Agree with IV fluids. Hold Lasix for now. UA shows WBCs more than 182 and urine protein 2+. Patient has chronic indwelling Edwards catheter. 2. 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 Downing as outpatient 3. Pyuria with indwelling Edwards catheter. 4. 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 Chronic kidney disease NKF stage IV with previous creatinine 1.7 on 12/15/2022. Etiology is likely nephrosclerosis versus chronic GN. UA shows 2+ protein but there is significant pyuria noted as well. This will need further workup and evaluation as outpatient. 6. Hypokalemia secondary to diuretics, being replaced Plan: Hold diuretics Hold farxiga for now Continue with IV fluids Repeat labs in a.m. Continue with indwelling Edwards catheter. Next Thank you for the consultation. We will continue to follow the patient with you during his hospitalization.
--- NOTE | 2023-01-22 12:28 | P.HPIM ---
History of Present Illness H&P Date: 01/22/23 Chief Complaint: Abnormal labs * 87-year-old gentleman with past medical history significant for chronic congestive heart failure diastolic dysfunction, diabetes mellitus type 2, lower extremity swelling, acute kidney injury secondary to ATN, recent hydronephrosis with Edwards catheter placement, valvular heart disease who was admitted in November 2022 with symptoms related to heart failure. Patient was treated with IV Lasix and transitioned to oral Lasix. During previous hospitalization patient was also seen by urology and a Edwards catheter placed with recommendation to have outpatient follow-up * Patient presents because of decreased appetite and abnormal blood work. was at an outside hospital where he was presented with weakness and decreased appetite. Workup done was consistent with urinary tract infection impaired renal function and a leftward abnormality.. Patient requested transfer to [facility] due to having medical services here * Workup initiated in ER included CBC which were WBC of 14.8 hemoglobin 13 platelet count of 326 * Serum chemistry obtained showed sodium 142 potassium 2.8B UN 113 creatinine 2.95 * Initial troponin obtained 0.097, * Urinalysis obtained showed urine WBC greater than 182 few bacteria, proteinuria noted large leukocyte esterase * Patient was started on IV fluid, given potassium replacement, Lasix placed on hold and started on antibiotics for urinary tract infection REVIEW OF SYSTEMS: Fatigue, weakness, lower extremity swelling CONSTITUTIONAL: No fever, no malaise, no fatigue. HEENT: No recent visual problems or hearing problems. Denied any sore throat. CARDIOVASCULAR: No chest pain, orthopnea, PND, no palpitations, no syncope. PULMONARY: No shortness of breath, no cough, no hemoptysis. GASTROINTESTINAL: No diarrhea, no nausea, no vomiting, no abdominal pain. NEUROLOGICAL: No headaches, no weakness, no numbness. HEMATOLOGICAL: Denies any bleeding or petechiae. GENITOURINARY: Fatigue, weakness, lower extremity swelling MUSCULOSKELETAL/RHEUMATOLOGICAL: Denies any joint pain, swelling, or any muscle pain. ENDOCRINE: Denies any polyuria or polydipsia. PHYSICAL EXAMINATION: GENERAL: The patient is alert and oriented x3, not in any acute distress. Ill appearance HEENT: Pupils are round and equally reacting to light. EOMI CARDIOVASCULAR: S1 and S2 present. No murmurs, rubs, or gallops. PULMONARY: Chest is clear to auscultation, no wheezing or crackles. ABDOMEN: Soft, nontender, nondistended, normoactive bowel sounds. Edwards cath in place MUSCULOSKELETAL: Lower extremity swelling EXTREMITIES: No cyanosis, clubbing, or pedal edema. NEUROLOGICAL: Gross neurological examination did not reveal any focal deficits. Past Medical History Past Medical History: Hypertension Additional Past Medical History / Comment(s): pt states that he hasn't been to a PCP in 10 years History of Any Multi-Drug Resistant Organisms: None Reported Past Surgical History: No Surgical Hx Reported Past Anesthesia/Blood Transfusion Reactions: No Reported Reaction, Unable to Obtain Additional Past Anesthesia/Blood Transfusion Reaction / Comment(s): pt has never had a blood transfusion Past Psychological History: Anxiety Smoking Status: Never smoker Past Alcohol Use History: Rare Past Drug Use History: None Reported - Past Family History Father Family Medical History: Dementia Mother Family Medical History: Cancer Medications and Allergies Home Medications Medication Instructions Recorded Confirmed Type Melatonin(Unknown Dose) 1 tab PO HS PRN 12/12/22 01/21/23 History Empagliflozin [Jardiance] 10 mg PO DAILY #30 tablet 12/15/22 01/21/23 Rx Furosemide [Lasix] 20 mg PO DAILY #30 tab 12/15/22 01/21/23 Rx Aspirin 81 mg PO DAILY 01/21/23 01/21/23 History Metoprolol Succinate [Metoprolol 12.5 mg PO DAILY 01/21/23 01/21/23 History Succinate ER] Tamsulosin [Flomax] 0.4 mg PO DAILY 01/21/23 01/21/23 History Allergies Allergy/AdvReac Type Severity Reaction Status Date / Time No Known Allergies Allergy Verified 01/21/23 22:40 Physical Exam Vitals: Vital Signs Temp Pulse Resp BP Pulse Ox 01/22/23 08:36 55 L 18 129/88 98 01/22/23 06:39 98.6 F 90 18 150/64 96 01/21/23 19:11 98.8 F 63 18 127/61 98 Intake and Output 01/21/23 01/22/23 01/22/23 22:59 06:59 14:59 Other: Voiding Method Indwelling Catheter Weight 55.338 kg 55.338 kg Results CBC & Chem 7: 01/21/23 19:30 01/21/23 19:30 Labs: Abnormal Lab Results - Last 24 Hours (Table) 01/21/23 01/21/23 01/21/23 Range/Units 19:30 19:30 19:30 WBC 14.8 H (3.8-10.6) k/uL Neutrophils # 12.3 H (1.3-7.7) k/uL Potassium 2.8 L (3.5-5.1) mmol/L BUN 113 H* (9-20) mg/dL Creatinine 2.95 H (0.66-1.25) mg/dL Glucose 106 H (74-99) mg/dL Calcium 8.1 L (8.4-10.2) mg/dL Troponin I 0.085 H* (0.000-0.034) ng/mL Total Protein 5.9 L (6.3-8.2) g/dL Albumin 3.1 L (3.5-5.0) g/dL Urine Protein (Negative) Urine RBC (0-5) /hpf Urine WBC (0-5) /hpf Urine WBC Clumps (None) /hpf Urine Bacteria (None) /hpf Hyaline Casts (0-2) /lpf 01/21/23 01/21/23 01/22/23 Range/Units 23:13 23:56 04:33 WBC (3.8-10.6) k/uL Neutrophils # (1.3-7.7) k/uL Potassium (3.5-5.1) mmol/L BUN (9-20) mg/dL Creatinine (0.66-1.25) mg/dL Glucose (74-99) mg/dL Calcium (8.4-10.2) mg/dL Troponin I 0.097 H* 0.096 H* (0.000-0.034) ng/mL Total Protein (6.3-8.2) g/dL Albumin (3.5-5.0) g/dL Urine Protein 2+ H (Negative) Urine RBC 65 H (0-5) /hpf Urine WBC >182 H (0-5) /hpf Urine WBC Clumps Many H (None) /hpf Urine Bacteria Few H (None) /hpf Hyaline Casts 5 H (0-2) /lpf Thrombosis Risk Factor Assmnt - DVT/VTE Prophylaxis DVT/VTE Prophylaxis: Mechanical Prophylaxis ordered Assessment and Plan Assessment: Assessment and plan Acute renal failure on chronic kidney disease History of urinary retention status post Edwards catheter in place present on admission Urinary tract infection secondary to catheter associated UTI Chronic congestive heart failure diastolic dysfunction Elevated troponin likely secondary to kidney disease Diabetes mellitus type 2 * In regards to acute kidney injury on chronic kidney disease, nephrology consu lt and follow up her renal profile * In regards to urinary retention, follow-up and maintain Edwards catheter urology consulted * In regards to urinary tract infection continue patient on IV Rocephin follow- up on urine cultures * In regards to chronic congestive heart failure hold Lasix, cardiology consu lted * In regards to elevated troponin, likely troponin are flat second 2 CK D, cardiology consulted, continue aspirin * In regards to diabetes mellitus Accu-Cheks before meals at bedtime continue patient on correctional insulin monitor for hypoglycemia, oral hypoglycemic agents on hold * CODE STATUS is full code Time with Patient: Greater than 30
[2023-01-22 12:37] LABS: Glucose,Whole Blood 124 mg/dL (70-110)
[2023-01-22] MEDS: INSULIN ASPART (NovoLOG) 100 UNIT/ML VIAL SQ SCH ×4 (12:40→21:59)
[2023-01-22 12:45] LABS: African American GFR (CKD) 23 (>60 ml/min/1.73 sqM); Anion Gap 12 mmol/L; Calcium 8.1 mg/dL (8.4-10.2); Carbon Dioxide 23 mmol/L (22-30); Chloride 110 mmol/L (98-107); Glucose 114 mg/dL (74-99); Non-African American GFR(CKD) 20 (>60 ml/min/1.73 sqM); Potassium 2.9 mmol/L (3.5-5.1); Sodium 145 mmol/L (137-145)
[2023-01-22 12:52] LABS: Blood Urea Nitrogen 104 mg/dL (9-20)
--- NOTE | 2023-01-22 14:18 | P.GSCN ---
History of Present Illness Consult date: 01/22/23 History of present illness: 87-year-old gentleman known to me for urinary retention. He is in the hospital with a urine infection and weakness. He also has acute on chronic renal failure. I met the patient in late November 2022 for urine retention, bilateral hydronephrosis secondarily. The patient was seen once in the office that had never followed up with his primary care for his congestive heart failure and lower extremity issues. He declined any further evaluation or treatment until he saw his primary care. He still had a Edwards at that point in time. He was supposed to follow my office later this week but ended up in the hospital. The patient was having voiding symptoms prior to his urine retention. This is documented in the previous consultation. The patient has multiple medical illnesses including chronic congestive failure diabetes hypertension acute and chronic renal failure Review of Systems All systems: negative - Constitutional Denies fever, Denies weight loss - EENT Eyes: denies blurred vision Ears, nose, mouth and throat: Denies dysphagia - Cardiovascular Denies chest pain, Denies shortness of breath - Respiratory Denies cough, Denies 7 - Gastrointestinal Reports as per HPI - Genitourinary Denies dysuria, Denies hematuria - Integumentary Denies rash, Denies unusual bruising - Neurological Denies headaches, Denies syncope - Hematologic/Lymphatic Denies easy bleeding, Denies easy bruising Past Medical History Past Medical History: Hypertension Additional Past Medical History / Comment(s): pt states that he hasn't been to a PCP in 10 years History of Any Multi-Drug Resistant Organisms: None Reported Past Surgical History: No Surgical Hx Reported Past Anesthesia/Blood Transfusion Reactions: No Reported Reaction, Unable to Obtain Additional Past Anesthesia/Blood Transfusion Reaction / Comm: pt has never had a blood transfusion Past Psychological History: Anxiety Smoking Status: Never smoker Past Alcohol Use History: Rare Past Drug Use History: None Reported - Past Family History Father Family Medical History: Dementia Mother Family Medical History: Cancer Medications and Allergies Home Medications Medication Instructions Recorded Confirmed Type Melatonin(Unknown Dose) 1 tab PO HS PRN 12/12/22 01/21/23 History Empagliflozin [Jardiance] 10 mg PO DAILY #30 tablet 12/15/22 01/21/23 Rx Furosemide [Lasix] 20 mg PO DAILY #30 tab 12/15/22 01/21/23 Rx Aspirin 81 mg PO DAILY 01/21/23 01/21/23 History Metoprolol Succinate [Metoprolol 12.5 mg PO DAILY 01/21/23 01/21/23 History Succinate ER] Tamsulosin [Flomax] 0.4 mg PO DAILY 01/21/23 01/21/23 History Allergies Allergy/AdvReac Type Severity Reaction Status Date / Time No Known Allergies Allergy Verified 01/21/23 22:40 Surgical - Exam Vital Signs Temp Pulse Resp BP Pulse Ox 98.8 F 63 18 127/61 98 01/21/23 19:11 01/21/23 19:11 01/21/23 19:11 01/21/23 19:11 01/21/23 19:11 - General well developed, well nourished, no distress - Eyes normal ocular movement, no icteric - ENT no hearing loss, no congestion - Neck no masses, trachea midline - Respiratory normal respiratory effort, clear to auscultation - Abdomen Abdomen: soft, non tender, no guarding, no rigid, no rebound - Genitourinary Indwelling catheter. - Integumentary no rash, no abnormal pigmentation - Neurologic no disoriented, no combative - Psychiatric oriented to time, oriented to person, oriented to place, speech is normal, memory intact Results - Labs 01/21/23 19:30 01/22/23 11:57 Abnormal Lab Results - Last 24 Hours (Table) 01/21/23 01/21/23 01/21/23 Range/Units 19:30 19:30 19:30 WBC 14.8 H (3.8-10.6) k/uL Neutrophils # 12.3 H (1.3-7.7) k/uL Potassium 2.8 L (3.5-5.1) mmol/L Chloride (98-107) mmol/L BUN 113 H* (9-20) mg/dL Creatinine 2.95 H (0.66-1.25) mg/dL Glucose 106 H (74-99) mg/dL POC Glucose (mg/dL) (70-110) mg/dL Calcium 8.1 L (8.4-10.2) mg/dL Troponin I 0.085 H* (0.000-0.034) ng/mL Total Protein 5.9 L (6.3-8.2) g/dL Albumin 3.1 L (3.5-5.0) g/dL Urine Protein (Negative) Urine RBC (0-5) /hpf Urine WBC (0-5) /hpf Urine WBC Clumps (None) /hpf Urine Bacteria (None) /hpf Hyaline Casts (0-2) /lpf 01/21/23 01/21/23 01/22/23 Range/Units 23:13 23:56 04:33 WBC (3.8-10.6) k/uL Neutrophils # (1.3-7.7) k/uL Potassium (3.5-5.1) mmol/L Chloride (98-107) mmol/L BUN (9-20) mg/dL Creatinine (0.66-1.25) mg/dL Glucose (74-99) mg/dL POC Glucose (mg/dL) (70-110) mg/dL Calcium (8.4-10.2) mg/dL Troponin I 0.097 H* 0.096 H* (0.000-0.034) ng/mL Total Protein (6.3-8.2) g/dL Albumin (3.5-5.0) g/dL Urine Protein 2+ H (Negative) Urine RBC 65 H (0-5) /hpf Urine WBC >182 H (0-5) /hpf Urine WBC Clumps Many H (None) /hpf Urine Bacteria Few H (None) /hpf Hyaline Casts 5 H (0-2) /lpf 01/22/23 01/22/23 Range/Units 11:57 12:36 WBC (3.8-10.6) k/uL Neutrophils # (1.3-7.7) k/uL Potassium 2.9 L (3.5-5.1) mmol/L Chloride 110 H (98-107) mmol/L BUN 104 H* (9-20) mg/dL Creatinine 2.75 H (0.66-1.25) mg/dL Glucose 114 H (74-99) mg/dL POC Glucose (mg/dL) 124 H (70-110) mg/dL Calcium 8.1 L (8.4-10.2) mg/dL Troponin I (0.000-0.034) ng/mL Total Protein (6.3-8.2) g/dL Albumin (3.5-5.0) g/dL Urine Protein (Negative) Urine RBC (0-5) /hpf Urine WBC (0-5) /hpf Urine WBC Clumps (None) /hpf Urine Bacteria (None) /hpf Hyaline Casts (0-2) /lpf Diabetes panel 01/21/23 01/22/23 Range/Units 19:30 11:57 Sodium 142 145 (137-145) mmol/L Potassium 2.8 L 2.9 L (3.5-5.1) mmol/L Chloride 105 110 H (98-107) mmol/L Carbon Dioxide 24 23 (22-30) mmol/L BUN 113 H* 104 H* (9-20) mg/dL Creatinine 2.95 H 2.75 H (0.66-1.25) mg/dL Glucose 106 H 114 H (74-99) mg/dL Calcium 8.1 L 8.1 L (8.4-10.2) mg/dL AST 35 (17-59) U/L ALT 36 (4-49) U/L Alkaline Phosphatase 91 (38-126) U/L Total Protein 5.9 L (6.3-8.2) g/dL Albumin 3.1 L (3.5-5.0) g/dL Calcium panel 01/21/23 01/22/23 Range/Units 19:30 11:57 Calcium 8.1 L 8.1 L (8.4-10.2) mg/dL Albumin 3.1 L (3.5-5.0) g/dL Pituitary panel 01/21/23 01/22/23 Range/Units 19:30 11:57 Sodium 142 145 (137-145) mmol/L Potassium 2.8 L 2.9 L (3.5-5.1) mmol/L Chloride 105 110 H (98-107) mmol/L Carbon Dioxide 24 23 (22-30) mmol/L BUN 113 H* 104 H* (9-20) mg/dL Creatinine 2.95 H 2.75 H (0.66-1.25) mg/dL Glucose 106 H 114 H (74-99) mg/dL Calcium 8.1 L 8.1 L (8.4-10.2) mg/dL Adrenal panel 01/21/23 01/22/23 Range/Units 19:30 11:57 Sodium 142 145 (137-145) mmol/L Potassium 2.8 L 2.9 L (3.5-5.1) mmol/L Chloride 105 110 H (98-107) mmol/L Carbon Dioxide 24 23 (22-30) mmol/L BUN 113 H* 104 H* (9-20) mg/dL Creatinine 2.95 H 2.75 H (0.66-1.25) mg/dL Glucose 106 H 114 H (74-99) mg/dL Calcium 8.1 L 8.1 L (8.4-10.2) mg/dL Total Bilirubin 0.5 (0.2-1.3) mg/dL AST 35 (17-59) U/L ALT 36 (4-49) U/L Alkaline Phosphatase 91 (38-126) U/L Total Protein 5.9 L (6.3-8.2) g/dL Albumin 3.1 L (3.5-5.0) g/dL Assessment and Plan Assessment: Impression: 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 Acute and chronic renal failure. Coronary artery disease. Diabetes. Recommendations: From a urologic standpoint nothing needs to be done until his other medical illnesses are dealt with. Once he is stabilized from a medical standpoint then a voiding trial can be attempted by removing the catheter. If he fails to void then further evaluate the patient for possible TURP.
--- NOTE | 2023-01-22 14:23 | P.CRDCN ---
History of Present Illness Consult date: 01/22/23 History of present illness: Patient is an 87-year-old male with past medical history of chronic diastolic heart failure, acute kidney injury, diabetes mellitus type 2 with hemoglobin A1c 6.9, valvular heart disease with moderate mitral regurgitation, moderate aortic regurgitation. Patient was recently hospitalized at the end of November he was treated at bedtime for acute on chronic heart failure, acute kidney injury. Patient states that he came in the hospital due to leg pain on the left. He denies having any lower extremity edema. He denies having any medical history. Doubt the patient has been taking his medications as instructed. He denies history of smoking. He has alcohol a few times per week. Patient states that he has been a little dizzy. No chest pain no shortness of breath. He does have some dyspnea on exertion. He denies palpitations, no syncopal episodes. No cough no fever. No blood in his stools or urine. No history of stroke or seizure. He denies any wheezing. Patient is seen today in the emergency center waiting for a bed of the cardiac stepdown unit. Patient noted to have worsening renal failure since he left the hospital on 12/15. EKG sinus rhythm with PACs Chest x-ray: No acute cardiopulmonary disease. COPD. WBC 14.8, hemoglobin 13, platelet count 326. Sodium 145, potassium 2.9, chloride 110, CO2 23, BUN 104, creatinine 2.75 down from 2.95. Troponins 0.085, 0.097, 0.096. ProBNP 22,700 Home cardiac medications: Aspirin 81 mg daily, Lasix 20 mg daily, Toprol-XL 12.5 mg daily, Jardiance 10 mg daily. Echocardiogram performed 12/13/2022 revealed EF of 20-25%, severely increased LV cavity size. Severely reduced global LV systolic function. Inferior lateral hypokinesia. Moderate mitral regurgitation, moderate left atrial dilatation, calcified aortic valve with moderate aortic regurgitation. REVIEW OF SYSTEMS At the time of my exam: CONSTITUTIONAL: Denies fever or chills. CARDIOVASCULAR: Denies chest pain, Denies shortness of breath, no orthopnea, PND or palpitations. + edema RESPIRATORY: Denies cough. GASTROINTESTINAL: Denies abdominal pain, diarrhea, constipation, nausea or vomiting. MUSCULOSKELETAL: Denies myalgias. NEUROLOGIC: Denies numbness, tingling or weakness. ENDOCRINE: Denies fatigue, weight change, polydipsia or polyurina. GENITOURINARY: Denies burning, hematuria or urgency with micturation. HEMATOLOGIC: Denies history of anemia or bleeding. PHYSICAL EXAMINATION Vital signs reviewed. CONSTITUTIONAL: No apparent distress. HEENT: Head is normocephalic. Pupils are equal, round. Sclerae anicteric. No JVD. No carotid bruit. CHEST EXAMINATION: Lungs are clear to auscultation. No chest wall tenderness is noted on palpation or with deep breathing. HEART EXAMINATION: Regular rate and rhythm. S1, S2 heard. Systolic murmur. ABDOMEN: Soft, nontender. EXTREMITIES: 2+ peripheral pulses, minimal lower extremity edema. NEUROLOGIC EXAMINATION: Patient is awake, alert and oriented x3. ASSESSMENT Chronic systolic heart failure Acute kidney injury Hypertension Diabetes mellitus type 2, hemoglobin A1c 6.9 Urinary retention Valvular heart disease with moderate mitral regurgitation and moderate aortic regurgitation PLAN Resume patient's home cardiac medications with the following changes: Discontinue Farxiga Change beta cyril to Lopressor 12.5 mg twice daily Hold diuretics Obtain repeat lab work in the morning Social work consult regarding patient's living situation inability to followObtai recommended medical regime Further recommendations to follow based upon clinical course Thank you kindly for this consultation. Nurse practitioner note has been reviewed, I agree with documented findings and plan of care. Patient was seen and examined. Past Medical History Past Medical History: Hypertension Additional Past Medical History / Comment(s): pt states that he hasn't been to a PCP in 10 years History of Any Multi-Drug Resistant Organisms: None Reported Past Surgical History: No Surgical Hx Reported Past Anesthesia/Blood Transfusion Reactions: No Reported Reaction, Unable to Obtain Additional Past Anesthesia/Blood Transfusion Reaction / Comment(s): pt has never had a blood transfusion Past Psychological History: Anxiety Smoking Status: Never smoker Past Alcohol Use History: Rare Past Drug Use History: None Reported - Past Family History Father Family Medical History: Dementia Mother Family Medical History: Cancer Medications and Allergies Home Medications Medication Instructions Recorded Confirmed Type Melatonin(Unknown Dose) 1 tab PO HS PRN 12/12/22 01/21/23 History Empagliflozin [Jardiance] 10 mg PO DAILY #30 tablet 12/15/22 01/21/23 Rx Furosemide [Lasix] 20 mg PO DAILY #30 tab 12/15/22 01/21/23 Rx Aspirin 81 mg PO DAILY 01/21/23 01/21/23 History Metoprolol Succinate [Metoprolol 12.5 mg PO DAILY 01/21/23 01/21/23 History Succinate ER] Tamsulosin [Flomax] 0.4 mg PO DAILY 01/21/23 01/21/23 History Allergies Allergy/AdvReac Type Severity Reaction Status Date / Time No Known Allergies Allergy Verified 01/21/23 22:40 Physical Exam Vitals: Vital Signs Temp Pulse Resp BP Pulse Ox 01/22/23 06:39 98.6 F 90 18 150/64 96 01/21/23 19:11 98.8 F 63 18 127/61 98 Intake and Output 01/21/23 01/22/23 01/22/23 22:59 06:59 14:59 Other: Voiding Method Indwelling Catheter Weight 55.338 kg Results 01/21/23 19:30 01/22/23 11:57 Cardiac Enzymes 01/21/23 01/21/23 01/21/23 Range/Units 19:30 19:30 23:56 AST 35 (17-59) U/L Troponin I 0.085 H* 0.097 H* (0.000-0.034) ng/mL 01/22/23 Range/Units 04:33 AST (17-59) U/L Troponin I 0.096 H* (0.000-0.034) ng/mL Coagulation 01/21/23 Range/Units 19:30 PT 11.4 (10.0-12.5) sec APTT 23.4 (22.0-30.0) sec CBC 01/21/23 Range/Units 19:30 WBC 14.8 H (3.8-10.6) k/uL RBC 4.55 (4.30-5.90) m/uL Hgb 13.0 (13.0-17.5) gm/dL Hct 40.3 (39.0-53.0) % Plt Count 326 (150-450) k/uL Comprehensive Metabolic Panel 01/21/23 Range/Units 19:30 Sodium 142 (137-145) mmol/L Potassium 2.8 L (3.5-5.1) mmol/L Chloride 105 (98-107) mmol/L Carbon Dioxide 24 (22-30) mmol/L BUN 113 H* (9-20) mg/dL Creatinine 2.95 H (0.66-1.25) mg/dL Glucose 106 H (74-99) mg/dL Calcium 8.1 L (8.4-10.2) mg/dL AST 35 (17-59) U/L ALT 36 (4-49) U/L Alkaline Phosphatase 91 (38-126) U/L Total Protein 5.9 L (6.3-8.2) g/dL Albumin 3.1 L (3.5-5.0) g/dL Current Medications Generic Name Dose Route Start Last Admin Trade Name Freq PRN Reason Stop Dose Admin Acetaminophen 650 mg 01/21/23 21:48 Acetaminophen Tab 325 Mg Tab PO Q6HR PRN Mild Pain or Fever > 100.5 Hydrocodone Bitart/Acetaminophen 1 each 01/21/23 21:48 Hydrocodone/Apap 5-325mg 1 Each Tab PO Q4HR PRN Moderate Pain (Scale 4 to 6) Aspirin 81 mg 01/22/23 09:00 Aspirin 81 Mg PO DAILY TANYA Dapagliflozin 5 mg 01/22/23 09:00 Dapagliflozin Propanediol 5 Mg Tablet PO DAILY TNAYA Sodium Chloride 1,000 mls @ 75 mls/hr 01/21/23 22:10 01/22/23 00:13 Saline 0.9% IV 01/22/23 11:29 75 mls/hr .[id number] STA Administration Ceftriaxone Sodium 1 gm/ 50 mls @ 100 mls/hr 01/22/23 06:00 01/22/23 06:49 Sodium Chloride IVPB 100 mls/hr Q24H TANYA Administration Protocol Metoprolol Tartrate 12.5 mg 01/22/23 09:00 Metoprolol Tartrate 12.5 Mg Tab PO DAILY TANYA Naloxone HCl 0.2 mg 01/21/23 21:48 Naloxone 0.4 Mg/Ml 1 Ml Vial IV Q2M PRN Opioid Reversal Ondansetron HCl 4 mg 01/21/23 21:48 Ondansetron 4 Mg/2 Ml Vial IVP Q8HR PRN Nausea And Vomiting Tamsulosin HCl 0.4 mg 01/22/23 09:00 Tamsulosin 0.4 Mg Cap.Er.24h PO DAILY TANYA Intake and Output 01/21/23 01/22/23 01/22/23 22:59 06:59 14:59 Other: Voiding Method Indwelling Catheter Weight 55.338 kg 01/21/23 19:30 01/21/23 19:30
[2023-01-22 16:49] LABS: Glucose,Whole Blood 96 mg/dL (70-110)
[2023-01-22 21:59] LABS: Glucose,Whole Blood 126 mg/dL (70-110)
[2023-01-22] MEDS ORDERED: POTASSIUM CHLORIDE ER 20 MEQ TAB.ER PO STA (22:14)
[2023-01-23 06:24] LABS: Glucose,Whole Blood 115 mg/dL (70-110)
[2023-01-23] MEDS: INSULIN ASPART (NovoLOG) 100 UNIT/ML VIAL SQ SCH ×4 (06:29→20:32)
[2023-01-23] MEDS: METOPROLOL TARTRATE 12.5 MG TAB PO SCH ×2 (08:25→20:41)
[2023-01-23] MEDS: ASPIRIN 81 MG PO SCH (08:25)
--- NOTE | 2023-01-23 11:03 | P.PN ---
Subjective Patient is seen for follow-up for acute kidney injury and chronic kidney disease with previous creatinine 1.7 on 12/15/2022. History of underlying CHF with recent increase in dose of diuretics as outpatient.. Status post IV fluids yesterday. Labs are pending from today. No significant complaints today. Objective - Vital Signs Vital signs: Vital Signs Temp 97.4 F L 01/23/23 08:00 Pulse 62 01/23/23 08:00 Resp 18 01/23/23 08:00 BP 141/67 01/23/23 08:00 Pulse Ox 96 01/23/23 08:00 FiO2 Intake & Output 01/22/23 01/23/23 01/23/23 18:59 06:59 18:59 Intake Total 120 Output Total 1575 500 550 Balance -1575 -500 -430 Weight 55.338 kg 53.5 kg Intake: Oral 120 Output: Urine 1575 500 550 Uretheral (Edwards) 825 Other: Voiding Method Indwelling Catheter Indwelling Catheter # Voids 1 - Exam Patient is awake, comfortable, no acute distress Examination of the heart S1 and S2 Examination of the lungs bilateral breath sounds are heard Abdomen is soft nontender Examination of lower extremities shows no significant edema CALL CENTER DIRECTOR exam grossly intact - Labs CBC & Chem 7: 01/21/23 19:30 01/22/23 11:57 Labs: Abnormal Lab Results - Last 24 Hours (Table) 01/22/23 01/22/23 01/22/23 Range/Units 11:57 12:36 21:58 Potassium 2.9 L (3.5-5.1) mmol/L Chloride 110 H (98-107) mmol/L BUN 104 H* (9-20) mg/dL Creatinine 2.75 H (0.66-1.25) mg/dL Glucose 114 H (74-99) mg/dL POC Glucose (mg/dL) 124 H 126 H (70-110) mg/dL Calcium 8.1 L (8.4-10.2) mg/dL 01/23/23 Range/Units 06:22 Potassium (3.5-5.1) mmol/L Chloride (98-107) mmol/L BUN (9-20) mg/dL Creatinine (0.66-1.25) mg/dL Glucose (74-99) mg/dL POC Glucose (mg/dL) 115 H (70-110) mg/dL Calcium (8.4-10.2) mg/dL Assessment and Plan Assessment: 1. Acute kidney injury secondary to her recent diuresis. Blood pressure is not low. Agree with IV fluids. Hold Lasix for now. UA shows WBCs more than 182 an d urine protein 2+. Patient has chronic indwelling Edwards catheter. 2. 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 Downing as outpatient 3. Pyuria with indwelling Edwards catheter. 4. 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 Chronic kidney disease NKF stage IV with previous creatinine 1.7 on 12/15/2022. Etiology is likely nephrosclerosis versus chronic GN. UA shows 2+ protein but there is significant pyuria noted as well. This will need further workup and evaluation as outpatient. 6. Hypokalemia secondary to diuretics, being replaced Plan: Hold diuretics Hold farxiga for now Continue with IV fluids Continue with Edwards catheter Check labs today and again in a.m.
[2023-01-23] MEDS: SODIUM CHLORIDE 0.9% 1,000 ML IV SCH ×2 (11:37→23:43)
[2023-01-23 11:43] LABS: Glucose,Whole Blood 199 mg/dL (70-110)
--- NOTE | 2023-01-23 12:24 | P.PN ---
Subjective Progress Note Date: 01/23/23 * 87-year-old gentleman with past medical history significant for chronic congestive heart failure diastolic dysfunction, diabetes mellitus type 2, lower extremity swelling, acute kidney injury secondary to ATN, recent hydronephrosis with Edwards catheter placement, valvular heart disease who was admitted in November 2022 with symptoms related to heart failure. Patient was treated with IV Lasix and transitioned to oral Lasix. During previous hospitalization patient was also seen by urology and a Edwards catheter placed with recommendation to have outpatient follow-up * Patient presents because of decreased appetite and abnormal blood work. was at an outside hospital where he was presented with weakness and decreased appetite. Workup done was consistent with urinary tract infection impaired re nal function and a leftward abnormality.. Patient requested transfer to [facility] due to having medical services here * Workup initiated in ER included CBC which were WBC of 14.8 hemoglobin 13 platelet count of 326 * Serum chemistry obtained showed sodium 142 potassium 2.8B UN 113 creatinine 2.95 * Initial troponin obtained 0.097, * Urinalysis obtained showed urine WBC greater than 182 few bacteria, proteinuria noted large leukocyte esterase * Patient was started on IV fluid, given potassium replacement, Lasix placed on hold and started on antibiotics for urinary tract infection * 01/23/2023: Patient seen and evaluated bedside, patient is alert and oriented 2, patient does complain of generalized weakness. Appreciate input from nephrology, diuretics on hold, the fluids 75 mL per hour continue to monitor intake and output. Appreciate input from neurology, cardiology, nephrology REVIEW OF SYSTEMS: Fatigue, weakness, lower extremity swelling CONSTITUTIONAL: No fever, no malaise, no fatigue. HEENT: No recent visual problems or hearing problems. Denied any sore throat. CARDIOVASCULAR: No chest pain, orthopnea, PND, no palpitations, no syncope. PULMONARY: No shortness of breath, no cough, no hemoptysis. GASTROINTESTINAL: No diarrhea, no nausea, no vomiting, no abdominal pain. NEUROLOGICAL: No headaches, no weakness, no numbness. HEMATOLOGICAL: Denies any bleeding or petechiae. GENITOURINARY: Fatigue, weakness, lower extremity swelling MUSCULOSKELETAL/RHEUMATOLOGICAL: Denies any joint pain, swelling, or any muscle pain. ENDOCRINE: Denies any polyuria or polydipsia. PHYSICAL EXAMINATION: GENERAL: The patient is alert and oriented x3, not in any acute distress. Ill appearance HEENT: Pupils are round and equally reacting to light. EOMI CARDIOVASCULAR: S1 and S2 present. No murmurs, rubs, or gallops. PULMONARY: Chest is clear to auscultation, no wheezing or crackles. ABDOMEN: Soft, nontender, nondistended, normoactive bowel sounds. Edwards cath in place MUSCULOSKELETAL: Lower extremity swelling EXTREMITIES: No cyanosis, clubbing, or pedal edema. NEUROLOGICAL: Gross neurological examination did not reveal any focal deficits. Objective - Vital Signs Vital signs: Vital Signs Temp 97.4 F L 01/23/23 08:00 Pulse 62 01/23/23 08:00 Resp 18 01/23/23 08:00 BP 141/67 01/23/23 08:00 Pulse Ox 96 01/23/23 08:00 FiO2 Intake & Output 01/22/23 01/23/23 01/23/23 18:59 06:59 18:59 Intake Total 120 Output Total 1575 500 550 Balance -1575 -500 -430 Weight 55.338 kg 53.5 kg Intake: Oral 120 Output: Urine 1575 500 550 Uretheral (Edwards) 825 Other: Voiding Method Indwelling Catheter Indwelling Catheter # Voids 1 - Labs CBC & Chem 7: 01/21/23 19:30 01/22/23 11:57 Labs: Abnormal Lab Results - Last 24 Hours (Table) 01/22/23 01/22/23 01/22/23 Range/Units 11:57 12:36 21:58 Potassium 2.9 L (3.5-5.1) mmol/L Chloride 110 H (98-107) mmol/L BUN 104 H* (9-20) mg/dL Creatinine 2.75 H (0.66-1.25) mg/dL Glucose 114 H (74-99) mg/dL POC Glucose (mg/dL) 124 H 126 H (70-110) mg/dL Calcium 8.1 L (8.4-10.2) mg/dL 01/23/23 01/23/23 Range/Units 06:22 11:41 Potassium (3.5-5.1) mmol/L Chloride (98-107) mmol/L BUN (9-20) mg/dL Creatinine (0.66-1.25) mg/dL Glucose (74-99) mg/dL POC Glucose (mg/dL) 115 H 199 H (70-110) mg/dL Calcium (8.4-10.2) mg/dL Assessment and Plan Assessment: Assessment and plan * Acute renal failure on chronic kidney disease * History of urinary retention status post Edwards catheter in place present on admission * Urinary tract infection secondary to catheter associated UTI * Chronic congestive heart failure diastolic dysfunction * Elevated troponin likely secondary to kidney disease * Diabetes mellitus type 2 * In regards to acute kidney injury on chronic kidney disease, nephrology consult and follow up her renal profile, continue IV hydration, diuretic and for Shiga on hold * In regards to urinary retention, follow-up and maintain Edwards catheter urology consulted, urology recommended to continue Edwards * In regards to urinary tract infection continue patient on IV Rocephin day 2 follow-up on urine cultures * In regards to chronic congestive heart failure hold Lasix, hold farxiga cardiology consulted * In regards to elevated troponin, likely troponin are flat second 2 CKD, cardiology consulted, continue aspirin * In regards to diabetes mellitus Accu-Cheks before meals at bedtime continue patient on correctional insulin monitor for hypoglycemia, oral hypoglycemic agents on hold * Generalized weakness will need physical therapy occupational therapy evaluation * CODE STATUS is full code Time with Patient: Greater than 30
[2023-01-23 12:30] LABS: African American GFR (CKD) 27 (>60 ml/min/1.73 sqM); Anion Gap 11 mmol/L; Blood Urea Nitrogen 79 mg/dL (9-20); Calcium 7.9 mg/dL (8.4-10.2); Carbon Dioxide 25 mmol/L (22-30); Chloride 105 mmol/L (98-107); Glucose 153 mg/dL (74-99); Non-African American GFR(CKD) 24 (>60 ml/min/1.73 sqM); Sodium 141 mmol/L (137-145)
--- NOTE | 2023-01-23 12:42 | CDI ---
Documentation Clarification Form Date: From: Morena Craft Phone: [phone] Admit Date: 01/21/2023 09:48:00 PM Patient Name: Meir Cat Visit Number: [id number] Discharge Date: ATTENTION: The Clinical Documentation Specialists (CDI) and [facility] Coding Staff appreciate your assistance in clarifying documentation. Please respond to the clarification below the line at the bottom and electronically sign. The CDI & [facility] Coding staff will review the response and follow-up if needed. Please note: Queries are made part of the Legal Health Record. If you have any questions, please contact the author of this message via ITS. Dr. Deniz Arreguin Your patient has elevated troponin levels. Please clarify if there is an additional diagnosis and/or clinical significance related to this value. Patient history/risk factors: "87-year-old gentleman with past medical history significant for chronic congestive heart failure diastolic dysfunction, diabetes mellitus type 2, lower extremity swelling, acute kidney injury secondary to ATN, recent hydronephrosis with Edwards catheter placement, valvular heart disease" - Per Medical H&P on 01/22 Clinical indicators: "Elevated troponin likely secondary to kidney disease" "No chest pain, orthopnea, PND, no palpitations, no syncope." - Per Medical H&P on 01/22 "Chronic kidney disease NKF stage IV" - Per Nephrology Consult Note on 01/22 Troponin: 01/21 - 0.097, 01/22 - 0.096 Treatment: "cardiology consulted, continue aspirin" - Per Medical H&P on 01/22 Is there an additional diagnosis and/or clinical significance related to the above lab result/information: [ ] Non-ischemic with acute/chronic myocardial injury [ y ] No additional diagnosis/Not clinically significant [ ] Other, please specify [ ] Unable to determine MTDD
--- NOTE | 2023-01-23 14:33 | P.PN ---
Subjective Progress Note Date: 01/23/23 Patient is an 87-year-old male with past medical history of chronic diastolic heart failure, acute kidney injury, diabetes mellitus type 2 with hemoglobin A1c 6.9, valvular heart disease with moderate mitral regurgitation, moderate aortic regurgitation. Patient was recently hospitalized at the end of November he was treated at bedtime for acute on chronic heart failure, acute kidney injury. Patient states that he came in the hospital due to leg pain on the left. He denies having any lower extremity edema. He denies having any medical history. Doubt the patient has been taking his medications as instructed. He denies history of smoking. He has alcohol a few times per week. Patient states that he has been a little dizzy. No chest pain no shortness of breath. He does have some dyspnea on exertion. He denies palpitations, no syncopal episodes. No cough no fever. No blood in his stools or urine. No history of stroke or seizure. He denies any wheezing. Patient is seen today in the emergency center waiting for a bed of the cardiac stepdown unit. Patient noted to have worsening renal failure since he left the hospital on 12/15. EKG sinus rhythm with PACs Chest x-ray: No acute cardiopulmonary disease. COPD. WBC 14.8, hemoglobin 13, platelet count 326. Sodium 145, potassium 2.9, chloride 110, CO2 23, BUN 104, creatinine 2.75 down from 2.95. Troponins 0.085, 0.097, 0.096. ProBNP 22,700 Home cardiac medications: Aspirin 81 mg daily, Lasix 20 mg daily, Toprol-XL 12.5 mg daily, Jardiance 10 mg daily. Echocardiogram performed 12/13/2022 revealed EF of 20-25%, severely increased LV cavity size. Severely reduced global LV systolic function. Inferior lateral hypokinesia. Moderate mitral regurgitation, moderate left atrial dilatation, calcified aortic valve with moderate aortic regurgitation. 01/23 Patient heart rate has been in the 40s. Patient states that he slept okay last night. He denies any chest pain, no dizziness. Blood pressure 127/49, pulse ox 99% on 2 L nasal cannula. Repeat blood work reveals sodium 141, potassium 3.0. BUN 79 creatinine 2.41. Potassium has been replaced. Patient is on IV antibiotics for urinary tract infection. PHYSICAL EXAMINATION Vital signs reviewed. CONSTITUTIONAL: No apparent distress. HEENT: Head is normocephalic. Pupils are equal, round. Sclerae anicteric. No JVD. No carotid bruit. CHEST EXAMINATION: Lungs are clear to auscultation. No chest wall tenderness is noted on palpation or with deep breathing. HEART EXAMINATION: Regular rate and rhythm. S1, S2 heard. Systolic murmur. ABDOMEN: Soft, nontender. EXTREMITIES: 2+ peripheral pulses, minimal lower extremity edema. NEUROLOGIC EXAMINATION: Patient is awake, alert and oriented. ASSESSMENT Chronic systolic heart failure Acute kidney injury Hypertension Diabetes mellitus type 2, hemoglobin A1c 6.9 Urinary retention UTI Valvular heart disease with moderate mitral regurgitation and moderate aortic regurgitation PLAN Continue patient's home cardiac medications with the following changes: Discontinue Farxiga Continue Lopressor 12.5 mg twice daily Hold diuretics Obtain repeat lab work in the morning Social work consult regarding patient's living situation inability to follow medical regime Further recommendations to follow based upon clinical course Nurse practitioner note has been reviewed, I agree with documented findings and plan of care. Patient was seen and examined. Objective - Vital Signs Vital signs: Vital Signs Temp 97.4 F L 01/23/23 08:00 Pulse 62 01/23/23 08:00 Resp 18 01/23/23 08:00 BP 141/67 01/23/23 08:00 Pulse Ox 96 01/23/23 08:00 FiO2 Intake & Output 01/22/23 01/23/23 01/23/23 18:59 06:59 18:59 Intake Total 120 Output Total 1575 500 550 Balance -1575 -500 -430 Weight 55.338 kg 53.5 kg Intake: Oral 120 Output: Urine 1575 500 550 Uretheral (Edwards) 825 Other: Voiding Method Indwelling Catheter Indwelling Catheter # Voids 1 - Labs CBC & Chem 7: 01/21/23 19:30 01/23/23 11:33 Labs: Abnormal Lab Results - Last 24 Hours (Table) 01/22/23 01/22/23 01/22/23 Range/Units 11:57 12:36 21:58 Potassium 2.9 L (3.5-5.1) mmol/L Chloride 110 H (98-107) mmol/L BUN 104 H* (9-20) mg/dL Creatinine 2.75 H (0.66-1.25) mg/dL Glucose 114 H (74-99) mg/dL POC Glucose (mg/dL) 124 H 126 H (70-110) mg/dL Calcium 8.1 L (8.4-10.2) mg/dL 01/23/23 Range/Units 06:22 Potassium (3.5-5.1) mmol/L Chloride (98-107) mmol/L BUN (9-20) mg/dL Creatinine (0.66-1.25) mg/dL Glucose (74-99) mg/dL POC Glucose (mg/dL) 115 H (70-110) mg/dL Calcium (8.4-10.2) mg/dL
[2023-01-23] MEDS: POTASSIUM CHLORIDE 10 MEQ in WATER FOR INJECTION 1 100ML.BAG IVPB SCH ×2 (15:03→16:21)
[2023-01-23 16:42] LABS: Glucose,Whole Blood 87 mg/dL (70-110)
[2023-01-23 20:09] LABS: Glucose,Whole Blood 145 mg/dL (70-110)
[2023-01-24 06:06] LABS: Glucose,Whole Blood 115 mg/dL (70-110)
[2023-01-24] MEDS: INSULIN ASPART (NovoLOG) 100 UNIT/ML VIAL SQ SCH ×4 (06:08→21:20)
[2023-01-24] MEDS: METOPROLOL TARTRATE 12.5 MG TAB PO SCH ×2 (08:39→21:19)
[2023-01-24] MEDS: ASPIRIN 81 MG PO SCH (08:39)
[2023-01-24] MEDS: SODIUM CHLORIDE 0.9% 1,000 ML IV SCH (08:39)
[2023-01-24] MEDS: TAMSULOSIN 0.4 MG CAP.ER.24H PO SCH (08:39)
[2023-01-24 09:15] LABS: HCT 42.7 % (39.0-53.0); HGB 13.6 gm/dL (13.0-17.5); MCHC 31.9 g/dL (31.0-37.0); MCV 90.9 fL (80.0-100.0); Mean Platelet Volume 8.5; Platelet Count 331 k/uL (150-450); RDW 13.2 % (11.5-15.5); WBC 17.9 k/uL (3.8-10.6)
[2023-01-24 09:37] LABS: African American GFR (CKD) 34 (>60 ml/min/1.73 sqM); Anion Gap 9 mmol/L; Blood Urea Nitrogen 61 mg/dL (9-20); Carbon Dioxide 22 mmol/L (22-30); Chloride 109 mmol/L (98-107); Glucose 112 mg/dL (74-99); Non-African American GFR(CKD) 30 (>60 ml/min/1.73 sqM); Potassium 3.4 mmol/L (3.5-5.1); Sodium 140 mmol/L (137-145)
[2023-01-24] MEDS ORDERED: POTASSIUM CHLORIDE ER 20 MEQ TAB.ER PO STA (09:50)
[2023-01-24 11:45] LABS: Glucose,Whole Blood 144 mg/dL (70-110)
--- NOTE | 2023-01-24 12:23 | P.PN ---
Subjective Patient is seen for follow-up for acute kidney injury and chronic kidney disease with previous creatinine 1.7 on 12/15/2022. History of underlying CHF with recent increase in dose of diuretics as outpatient.. Status post IV fluids Serum creatinine decreased to 1.98 No significant complaints today. Objective - Vital Signs Vital signs: Vital Signs Temp 97.9 F 01/24/23 08:36 Pulse 65 01/24/23 11:28 Resp 20 01/24/23 11:28 BP 133/72 01/24/23 11:28 Pulse Ox 94 L 01/24/23 11:28 FiO2 Intake & Output 01/23/23 01/24/23 01/24/23 18:59 06:59 18:59 Intake Total 690 10 Output Total 1050 1200 675 Balance -360 -1190 -675 Weight 53.5 kg Intake: IV 10 Invasive Line 1 10 Oral 690 Output: Urine 1050 1200 675 Other: Voiding Method Indwelling Catheter Indwelling Catheter Indwelling Catheter # Voids 1 - Exam Patient is awake, comfortable, no acute distress Examination of the heart S1 and S2 Examination of the lungs bilateral breath sounds are heard Abdomen is soft nontender Examination of lower extremities shows no significant edema WATER PURIFIER exam grossly intact. Periodical confusion - Labs CBC & Chem 7: 01/24/23 08:53 01/24/23 08:53 Labs: Abnormal Lab Results - Last 24 Hours (Table) 01/23/23 01/23/23 01/23/23 Range/Units 11:33 11:33 20:08 WBC (3.8-10.6) k/uL Potassium 3.0 L (3.5-5.1) mmol/L Chloride (98-107) mmol/L BUN 79 H (9-20) mg/dL Creatinine 2.41 H (0.66-1.25) mg/dL Glucose 153 H (74-99) mg/dL POC Glucose (mg/dL) 145 H (70-110) mg/dL Hemoglobin A1c 6.4 H (<=6.0) % Calcium 7.9 L (8.4-10.2) mg/dL 01/24/23 01/24/23 01/24/23 Range/Units 06:05 08:53 08:53 WBC 17.9 H (3.8-10.6) k/uL Potassium 3.4 L (3.5-5.1) mmol/L Chloride 109 H (98-107) mmol/L BUN 61 H (9-20) mg/dL Creatinine 1.98 H (0.66-1.25) mg/dL Glucose 112 H (74-99) mg/dL POC Glucose (mg/dL) 115 H (70-110) mg/dL Hemoglobin A1c (<=6.0) % Calcium 8.0 L (8.4-10.2) mg/dL 01/24/23 Range/Units 11:42 WBC (3.8-10.6) k/uL Potassium (3.5-5.1) mmol/L Chloride (98-107) mmol/L BUN (9-20) mg/dL Creatinine (0.66-1.25) mg/dL Glucose (74-99) mg/dL POC Glucose (mg/dL) 144 H (70-110) mg/dL Hemoglobin A1c (<=6.0) % Calcium (8.4-10.2) mg/dL Assessment and Plan Assessment: 1. Acute kidney injury secondary to her recent diuresis. Blood pressure is not low. Continue with IV fluids. Hold Lasix for now. UA shows WBCs more than 182 and urine protein 2+. Patient has chronic indwelling Edwards catheter. 2. 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 Downing as outpatient 3. Pyuria with indwelling Edwards catheter. 4. 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 Chronic kidney disease NKF stage IV with previous creatinine 1.7 on 12/15/2022. Etiology is likely nephrosclerosis versus chronic GN. UA shows 2+ protein but there is significant pyuria noted as well. This will need further workup and evaluation as outpatient. 6. Hypokalemia secondary to diuretics, being replaced Plan: We can likely discontinue IV fluids in a.m. Continue to hold diuretics Continue with Edwards catheter Check labs today and again in a.m.
[2023-01-24 13:11] LABS: African American GFR (CKD) 37 (>60 ml/min/1.73 sqM); Anion Gap 9 mmol/L; Blood Urea Nitrogen 60 mg/dL (9-20); Calcium 7.8 mg/dL (8.4-10.2); Carbon Dioxide 20 mmol/L (22-30); Chloride 109 mmol/L (98-107); Glucose 102 mg/dL (74-99); Non-African American GFR(CKD) 32 (>60 ml/min/1.73 sqM); Sodium 138 mmol/L (137-145)
--- NOTE | 2023-01-24 13:36 | P.PN ---
Subjective Progress Note Date: 01/24/23 * 87-year-old gentleman with past medical history significant for chronic congestive heart failure diastolic dysfunction, diabetes mellitus type 2, lower extremity swelling, acute kidney injury secondary to ATN, recent hydronephrosis with Edwards catheter placement, valvular heart disease who was admitted in November 2022 with symptoms related to heart failure. Patient was treated with IV Lasix and transitioned to oral Lasix. During previous hospitalization patient was also seen by urology and a Edwards catheter placed with recommendation to have outpatient follow-up * Patient presents because of decreased appetite and abnormal blood work. was at an outside hospital where he was presented with weakness and decreased appetite. Workup done was consistent with urinary tract infection impaired re nal function and a leftward abnormality.. Patient requested transfer to [facility] due to having medical services here * Workup initiated in ER included CBC which were WBC of 14.8 hemoglobin 13 platelet count of 326 * Serum chemistry obtained showed sodium 142 potassium 2.8B UN 113 creatinine 2.95 * Initial troponin obtained 0.097, * Urinalysis obtained showed urine WBC greater than 182 few bacteria, proteinuria noted large leukocyte esterase * Patient was started on IV fluid, given potassium replacement, Lasix placed on hold and started on antibiotics for urinary tract infection * 01/23/2023: Patient seen and evaluated bedside, patient is alert and oriented 2, patient does complain of generalized weakness. Appreciate input from nephrology, diuretics on hold, the fluids 75 mL per hour continue to monitor intake and output. Appreciate input from neurology, cardiology, nephrology * 01/24/2023: Patient seen and evaluated bedside, patient is alert and oriented to person place and situation he does get confused at times during conversation. Blood work reviewed creatinine 1.85, potassium 4, patient remains on room air, REVIEW OF SYSTEMS: Fatigue, weakness, lower extremity swelling CONSTITUTIONAL: No fever, no malaise, no fatigue. HEENT: No recent visual problems or hearing problems. Denied any sore throat. CARDIOVASCULAR: No chest pain, orthopnea, PND, no palpitations, no syncope. PULMONARY: No shortness of breath, no cough, no hemoptysis. GASTROINTESTINAL: No diarrhea, no nausea, no vomiting, no abdominal pain. NEUROLOGICAL: No headaches, no weakness, no numbness. HEMATOLOGICAL: Denies any bleeding or petechiae. GENITOURINARY: Fatigue, weakness, lower extremity swelling MUSCULOSKELETAL/RHEUMATOLOGICAL: Denies any joint pain, swelling, or any muscle pain. ENDOCRINE: Denies any polyuria or polydipsia. PHYSICAL EXAMINATION: GENERAL: The patient is alert and oriented x3, not in any acute distress. Ill appearance HEENT: Pupils are round and equally reacting to light. EOMI CARDIOVASCULAR: S1 and S2 present. No murmurs, rubs, or gallops. PULMONARY: Chest is clear to auscultation, no wheezing or crackles. ABDOMEN: Soft, nontender, nondistended, normoactive bowel sounds. Edwards cath in place MUSCULOSKELETAL: Lower extremity swelling EXTREMITIES: No cyanosis, clubbing, or pedal edema. NEUROLOGICAL: Gross neurological examination did not reveal any focal deficits. Objective - Vital Signs Vital signs: Vital Signs Temp 97.9 F 01/24/23 08:36 Pulse 65 01/24/23 11:28 Resp 20 01/24/23 11:28 BP 133/72 01/24/23 11:28 Pulse Ox 94 L 01/24/23 11:28 FiO2 Intake & Output 01/23/23 01/24/23 01/24/23 18:59 06:59 18:59 Intake Total 690 10 Output Total 1050 1200 675 Balance -360 -1190 -675 Weight 53.5 kg Intake: IV 10 Invasive Line 1 10 Oral 690 Output: Urine 1050 1200 675 Other: Voiding Method Indwelling Catheter Indwelling Catheter Indwelling Catheter # Voids 1 - Labs CBC & Chem 7: 01/24/23 08:53 01/24/23 12:34 Labs: Abnormal Lab Results - Last 24 Hours (Table) 01/23/23 01/23/23 01/24/23 Range/Units 11:33 20:08 06:05 WBC (3.8-10.6) k/uL Potassium (3.5-5.1) mmol/L Chloride (98-107) mmol/L Carbon Dioxide (22-30) mmol/L BUN (9-20) mg/dL Creatinine (0.66-1.25) mg/dL Glucose (74-99) mg/dL POC Glucose (mg/dL) 145 H 115 H (70-110) mg/dL Hemoglobin A1c 6.4 H (<=6.0) % Calcium (8.4-10.2) mg/dL 1201/24/23 01/24/23 Range/Units 08:53 08:53 11:42 WBC 17.9 H (3.8-10.6) k/uL Potassium 3.4 L (3.5-5.1) mmol/L Chloride 109 H (98-107) mmol/L Carbon Dioxide (22-30) mmol/L BUN 61 H (9-20) mg/dL Creatinine 1.98 H (0.66-1.25) mg/dL Glucose 112 H (74-99) mg/dL POC Glucose (mg/dL) 144 H (70-110) mg/dL Hemoglobin A1c (<=6.0) % Calcium 8.0 L (8.4-10.2) mg/dL 01/24/23 Range/Units 12:34 WBC (3.8-10.6) k/uL Potassium (3.5-5.1) mmol/L Chloride 109 H (98-107) mmol/L Carbon Dioxide 20 L (22-30) mmol/L BUN 60 H (9-20) mg/dL Creatinine 1.85 H (0.66-1.25) mg/dL Glucose 102 H (74-99) mg/dL POC Glucose (mg/dL) (70-110) mg/dL Hemoglobin A1c (<=6.0) % Calcium 7.8 L (8.4-10.2) mg/dL Microbiology - Last 24 Hours (Table) 01/21/23 23:13 Urine Culture - Final Urine,Voided Enterococcus faecalis Assessment and Plan Assessment: Assessment and plan * Acute renal failure on chronic kidney disease * History of urinary retention status post Edwards catheter in place present on admission * Urinary tract infection secondary to catheter associated UTI * Chronic congestive heart failure diastolic dysfunction * Elevated troponin likely secondary to kidney disease * Diabetes mellitus type 2 * In regards to acute kidney injury on chronic kidney disease, nephrology consult and follow up her renal profile, continue IV hydration, diuretic and farxiga on hold * In regards to urinary retention, follow-up and maintain Edwards catheter urology consulted, urology recommended to continue Edwards * In regards to urinary tract infection continue patient on IV Rocephin day 3 >> follow-up on urine cultures Enterococcus faecalis * In regards to chronic congestive heart failure hold Lasix, hold farxiga cardiology consulted * In regards to elevated troponin, likely troponin are flat second 2 CKD, cardiology consulted, continue aspirin * In regards to diabetes mellitus Accu-Cheks before meals at bedtime continue patient on correctional insulin monitor for hypoglycemia, oral hypoglycemic agents on hold * Generalized weakness will need physical therapy occupational therapy evaluation * CODE STATUS is full code
--- NOTE | 2023-01-24 14:20 | P.PN ---
Subjective Progress Note Date: 01/24/23 Patient is an 87-year-old male with past medical history of chronic diastolic heart failure, acute kidney injury, diabetes mellitus type 2 with hemoglobin A1c 6.9, valvular heart disease with moderate mitral regurgitation, moderate aortic regurgitation. Patient was recently hospitalized at the end of November he was treated at bedtime for acute on chronic heart failure, acute kidney injury. Patient states that he came in the hospital due to leg pain on the left. He denies having any lower extremity edema. He denies having any medical history. Doubt the patient has been taking his medications as instructed. He denies history of smoking. He has alcohol a few times per week. Patient states that he has been a little dizzy. No chest pain no shortness of breath. He does have some dyspnea on exertion. He denies palpitations, no syncopal episodes. No cough no fever. No blood in his stools or urine. No history of stroke or seizure. He denies any wheezing. Patient is seen today in the emergency center waiting for a bed of the cardiac stepdown unit. Patient noted to have worsening renal failure since he left the hospital on 12/15. EKG sinus rhythm with PACs Chest x-ray: No acute cardiopulmonary disease. COPD. WBC 14.8, hemoglobin 13, platelet count 326. Sodium 145, potassium 2.9, chloride 110, CO2 23, BUN 104, creatinine 2.75 down from 2.95. Troponins 0.085, 0.097, 0.096. ProBNP 22,700 Home cardiac medications: Aspirin 81 mg daily, Lasix 20 mg daily, Toprol-XL 12.5 mg daily, Jardiance 10 mg daily. Echocardiogram performed 12/13/2022 revealed EF of 20-25%, severely increased LV cavity size. Severely reduced global LV systolic function. Inferior lateral hypokinesia. Moderate mitral regurgitation, moderate left atrial dilatation, calcified aortic valve with moderate aortic regurgitation. 01/23 Patient heart rate has been in the 40s. Patient states that he slept okay last night. He denies any chest pain, no dizziness. Blood pressure 127/49, pulse ox 99% on 2 L nasal cannula. Repeat blood work reveals sodium 141, potassium 3.0. BUN 79 creatinine 2.41. Potassium has been replaced. Patient is on IV antibiotics for urinary tract infection. 01/24 Patient denies having any chest pain, no dizziness. He states that he is feeling 100% better. Blood pressure 133/72, heart rate in the 60s, pulse ox 94% on room air. BUN 60 creatinine 1.85. Potassium 4, CO2 20. PHYSICAL EXAMINATION Vital signs reviewed. CONSTITUTIONAL: No apparent distress. HEENT: Head is normocephalic. Pupils are equal, round. Sclerae anicteric. No JVD. No carotid bruit. CHEST EXAMINATION: Lungs are clear to auscultation. No chest wall tenderness is noted on palpation or with deep breathing. HEART EXAMINATION: Regular rate and rhythm. S1, S2 heard. Systolic murmur. ABDOMEN: Soft, nontender. EXTREMITIES: 2+ peripheral pulses, minimal lower extremity edema. NEUROLOGIC EXAMINATION: Patient is awake, alert and oriented. ASSESSMENT Chronic systolic heart failure Acute kidney injury Hypertension Diabetes mellitus type 2, hemoglobin A1c 6.9 Urinary retention UTI Valvular heart disease with moderate mitral regurgitation and moderate aortic regurgitation PLAN Continue patient's home cardiac medications with the following changes: Discontinue Farxiga Continue Lopressor 12.5 mg twice daily Hold diuretics Obtain repeat lab work in the morning Further recommendations to follow based upon clinical course Nurse practitioner note has been reviewed, I agree with documented findings and plan of care. Patient was seen and examined. Objective - Vital Signs Vital signs: Vital Signs Temp 97.9 F 01/24/23 08:36 Pulse 65 01/24/23 11:28 Resp 20 01/24/23 11:28 BP 133/72 01/24/23 11:28 Pulse Ox 94 L 01/24/23 11:28 FiO2 Intake & Output 01/23/23 01/24/23 01/24/23 18:59 06:59 18:59 Intake Total 690 10 Output Total 1050 1200 675 Balance -360 -4262 -460 Weight 53.5 kg Intake: IV 10 Invasive Line 1 10 Oral 690 Output: Urine 1050 1200 675 Other: Voiding Method Indwelling Catheter Indwelling Catheter Indwelling Catheter # Voids 1 - Labs CBC & Chem 7: 01/24/23 08:53 01/24/23 12:34 Labs: Abnormal Lab Results - Last 24 Hours (Table) 01/23/23 01/23/23 01/24/23 Range/Units 11:33 20:08 06:05 WBC (3.8-10.6) k/uL Potassium (3.5-5.1) mmol/L Chloride (98-107) mmol/L Carbon Dioxide (22-30) mmol/L BUN (9-20) mg/dL Creatinine (0.66-1.25) mg/dL Glucose (74-99) mg/dL POC Glucose (mg/dL) 145 H 115 H (70-110) mg/dL Hemoglobin A1c 6.4 H (<=6.0) % Calcium (8.4-10.2) mg/dL 01/24/23 01/24/23 01/24/23 Range/Units 08:53 08:53 11:42 WBC 17.9 H (3.8-10.6) k/uL Potassium 3.4 L (3.5-5.1) mmol/L Chloride 109 H (98-107) mmol/L Carbon Dioxide (22-30) mmol/L BUN 61 H (9-20) mg/dL Creatinine 1.98 H (0.66-1.25) mg/dL Glucose 112 H (74-99) mg/dL POC Glucose (mg/dL) 144 H (70-110) mg/dL Hemoglobin A1c (<=6.0) % Calcium 8.0 L (8.4-10.2) mg/dL 01/24/23 Range/Units 12:34 WBC (3.8-10.6) k/uL Potassium (3.5-5.1) mmol/L Chloride 109 H (98-107) mmol/L Carbon Dioxide 20 L (22-30) mmol/L BUN 60 H (9-20) mg/dL Creatinine 1.85 H (0.66-1.25) mg/dL Glucose 102 H (74-99) mg/dL POC Glucose (mg/dL) (70-110) mg/dL Hemoglobin A1c (<=6.0) % Calcium 7.8 L (8.4-10.2) mg/dL Microbiology - Last 24 Hours (Table) 01/21/23 23:13 Urine Culture - Final Urine,Voided Enterococcus faecalis
[2023-01-24 17:01] LABS: Glucose,Whole Blood 175 mg/dL (70-110)
[2023-01-24 20:42] LABS: Glucose,Whole Blood 248 mg/dL (70-110)
[2023-01-25] MEDS: SODIUM CHLORIDE 0.9% 1,000 ML IV SCH ×2 (03:24→14:17)
[2023-01-25] MEDS: INSULIN ASPART (NovoLOG) 100 UNIT/ML VIAL SQ SCH ×4 (06:37→20:04)
[2023-01-25 06:39] LABS: Glucose,Whole Blood 101 mg/dL (70-110)
[2023-01-25] MEDS: ASPIRIN 81 MG PO SCH (08:28)
[2023-01-25] MEDS: METOPROLOL TARTRATE 12.5 MG TAB PO SCH ×2 (08:28→20:04)
[2023-01-25] MEDS: TAMSULOSIN 0.4 MG CAP.ER.24H PO SCH (08:28)
[2023-01-25 08:56] LABS: HCT 38.4 % (39.0-53.0); HGB 12.4 gm/dL (13.0-17.5); MCH 29.1 pg (25.0-35.0); MCHC 32.3 g/dL (31.0-37.0); MCV 90.2 fL (80.0-100.0); Mean Platelet Volume 9.6; Platelet Count 303 k/uL (150-450); RBC 4.25 m/uL (4.30-5.90); RDW 13.5 % (11.5-15.5); WBC 13.1 k/uL (3.8-10.6)
[2023-01-25 09:01] LABS: African American GFR (CKD) 37 (>60 ml/min/1.73 sqM); Anion Gap 8 mmol/L; Blood Urea Nitrogen 51 mg/dL (9-20); Calcium 7.5 mg/dL (8.4-10.2); Carbon Dioxide 22 mmol/L (22-30); Chloride 109 mmol/L (98-107); Glucose 82 mg/dL (74-99); Non-African American GFR(CKD) 32 (>60 ml/min/1.73 sqM); Potassium 3.7 mmol/L (3.5-5.1); Sodium 139 mmol/L (137-145)
[2023-01-25] MEDS ORDERED: AMPICILLIN-SULBACTAM 3 GM in SODIUM CHLORIDE 0.9% 100 ML IVPB SCH (11:00)
--- NOTE | 2023-01-25 11:39 | P.PN ---
Subjective Progress Note Date: 01/25/23 Patient is an 87-year-old male with past medical history of chronic diastolic heart failure, acute kidney injury, diabetes mellitus type 2 with hemoglobin A1c 6.9, valvular heart disease with moderate mitral regurgitation, moderate aortic regurgitation. Patient was recently hospitalized at the end of November he was treated at bedtime for acute on chronic heart failure, acute kidney injury. Patient states that he came in the hospital due to leg pain on the left. He denies having any lower extremity edema. He denies having any medical history. Doubt the patient has been taking his medications as instructed. He denies history of smoking. He has alcohol a few times per week. Patient states that he has been a little dizzy. No chest pain no shortness of breath. He does have some dyspnea on exertion. He denies palpitations, no syncopal episodes. No cough no fever. No blood in his stools or urine. No history of stroke or seizure. He denies any wheezing. Patient is seen today in the emergency center waiting for a bed of the cardiac stepdown unit. Patient noted to have worsening renal failure since he left the hospital on 12/15. EKG sinus rhythm with PACs Chest x-ray: No acute cardiopulmonary disease. COPD. WBC 14.8, hemoglobin 13, platelet count 326. Sodium 145, potassium 2.9, chloride 110, CO2 23, BUN 104, creatinine 2.75 down from 2.95. Troponins 0.085, 0.097, 0.096. ProBNP 22,700 Home cardiac medications: Aspirin 81 mg daily, Lasix 20 mg daily, Toprol-XL 12.5 mg daily, Jardiance 10 mg daily. Echocardiogram performed 12/13/2022 revealed EF of 20-25%, severely increased LV cavity size. Severely reduced global LV systolic function. Inferior lateral hypokinesia. Moderate mitral regurgitation, moderate left atrial dilatation, calcified aortic valve with moderate aortic regurgitation. 01/23 Patient heart rate has been in the 40s. Patient states that he slept okay last night. He denies any chest pain, no dizziness. Blood pressure 127/49, pulse ox 99% on 2 L nasal cannula. Repeat blood work reveals sodium 141, potassium 3.0. BUN 79 creatinine 2.41. Potassium has been replaced. Patient is on IV antibiotics for urinary tract infection. 01/24 Patient denies having any chest pain, no dizziness. He states that he is feeling 100% better. Blood pressure 133/72, heart rate in the 60s, pulse ox 94% on room air. BUN 60 creatinine 1.85. Potassium 4, CO2 20. 01/25 Patient states he continues to feel better. He denies having any chest pain. No shortness of breath. Blood pressure 139/88, heart rate in the 50s, pulse ox 96% on room air, afebrile. Repeat blood work revealed lung hemoglobin 12.4. BUN 51 and creatinine 1.85. PHYSICAL EXAMINATION Vital signs reviewed. CONSTITUTIONAL: No apparent distress. HEENT: Head is normocephalic. Pupils are equal, round. Sclerae anicteric. No JVD. No carotid bruit. CHEST EXAMINATION: Lungs are clear to auscultation. No chest wall tenderness is noted on palpation or with deep breathing. HEART EXAMINATION: Regular rate and rhythm. S1, S2 heard. Systolic murmur. ABDOMEN: Soft, nontender. EXTREMITIES: 2+ peripheral pulses, minimal lower extremity edema. NEUROLOGIC EXAMINATION: Patient is awake, alert and oriented. ASSESSMENT Chronic systolic heart failure Acute kidney injury Hypertension Diabetes mellitus type 2, hemoglobin A1c 6.9 Urinary retention UTI Valvular heart disease with moderate mitral regurgitation and moderate aortic regurgitation PLAN Continue patient's home cardiac medications with the following changes: Discontinue Farxiga Continue Lopressor 12.5 mg twice daily Hold diuretics Obtain repeat lab work in the morning Further recommendations to follow based upon clinical course Nurse practitioner note has been reviewed, I agree with documented findings and plan of care. Patient was seen and examined. Objective - Vital Signs Vital signs: Vital Signs Temp 98 F 01/25/23 08:00 Pulse 56 L 01/25/23 08:00 Resp 16 01/25/23 08:00 BP 139/88 01/25/23 08:00 Pulse Ox 96 01/25/23 08:00 FiO2 Intake & Output 01/24/23 01/25/23 01/25/23 18:59 06:59 18:59 Intake Total 240 Output Total 1250 900 600 Balance -1250 -900 -360 Weight 51.4 kg Intake: Oral 240 Output: Urine 1250 900 600 Other: Voiding Method Indwelling Catheter Indwelling Catheter Indwelling Catheter # Voids 200 # Bowel Movements 1 - Labs CBC & Chem 7: 01/25/23 07:14 01/25/23 07:14 Labs: Abnormal Lab Results - Last 24 Hours (Table) 01/24/23 01/24/23 01/24/23 Range/Units 11:42 12:34 17:00 WBC (3.8-10.6) k/uL RBC (4.30-5.90) m/uL Hgb (13.0-17.5) gm/dL Hct (39.0-53.0) % Chloride 109 H (98-107) mmol/L Carbon Dioxide 20 L (22-30) mmol/L BUN 60 H (9-20) mg/dL Creatinine 1.85 H (0.66-1.25) mg/dL Glucose 102 H (74-99) mg/dL POC Glucose (mg/dL) 144 H 175 H (70-110) mg/dL Calcium 7.8 L (8.4-10.2) mg/dL 01/24/23 01/25/23 01/25/23 Range/Units 20:40 07:14 07:14 WBC 13.1 H (3.8-10.6) k/uL RBC 4.25 L (4.30-5.90) m/uL Hgb 12.4 L (13.0-17.5) gm/dL Hct 38.4 L (39.0-53.0) % Chloride 109 H (98-107) mmol/L Carbon Dioxide (22-30) mmol/L BUN 51 H (9-20) mg/dL Creatinine 1.85 H (0.66-1.25) mg/dL Glucose (74-99) mg/dL POC Glucose (mg/dL) 248 H (70-110) mg/dL Calcium 7.5 L (8.4-10.2) mg/dL Microbiology - Last 24 Hours (Table) 01/21/23 23:13 Urine Culture - Final Urine,Voided Enterococcus faecalis
--- NOTE | 2023-01-25 11:41 | P.PN ---
Subjective Progress Note Date: 01/25/23 * 87-year-old gentleman with past medical history significant for chronic congestive heart failure diastolic dysfunction, diabetes mellitus type 2, lower extremity swelling, acute kidney injury secondary to ATN, recent hydronephrosis with Edwards catheter placement, valvular heart disease who was admitted in November 2022 with symptoms related to heart failure. Patient was treated with IV Lasix and transitioned to oral Lasix. During previous hospitalization patient was also seen by urology and a Edwards catheter placed with recommendation to have outpatient follow-up * Patient presents because of decreased appetite and abnormal blood work. was at an outside hospital where he was presented with weakness and decreased appetite. Workup done was consistent with urinary tract infection impaired re nal function and a leftward abnormality.. Patient requested transfer to [facility] due to having medical services here * Workup initiated in ER included CBC which were WBC of 14.8 hemoglobin 13 platelet count of 326 * Serum chemistry obtained showed sodium 142 potassium 2.8B UN 113 creatinine 2.95 * Initial troponin obtained 0.097, * Urinalysis obtained showed urine WBC greater than 182 few bacteria, proteinuria noted large leukocyte esterase * Patient was started on IV fluid, given potassium replacement, Lasix placed on hold and started on antibiotics for urinary tract infection * 01/23/2023: Patient seen and evaluated bedside, patient is alert and oriented 2, patient does complain of generalized weakness. Appreciate input from nephrology, diuretics on hold, the fluids 75 mL per hour continue to monitor intake and output. Appreciate input from neurology, cardiology, nephrology * 01/24/2023: Patient seen and evaluated bedside, patient is alert and oriented to person place and situation he does get confused at times during conversation. Blood work reviewed creatinine 1.85, potassium 4, patient remains on room air * 01/25/2023: Patient seen and evaluated bedside patient is alert and oriented to person and situation, urine cultures reviewed patient does have enterococcus, antibiotics adjusted. Continue to monitor for improvement WBC count, ultrasound kidneys ordered as well REVIEW OF SYSTEMS: Fatigue, weakness, lower extremity swelling CONSTITUTIONAL: No fever, no malaise, no fatigue. HEENT: No recent visual problems or hearing problems. Denied any sore throat. CARDIOVASCULAR: No chest pain, orthopnea, PND, no palpitations, no syncope. PULMONARY: No shortness of breath, no cough, no hemoptysis. GASTROINTESTINAL: No diarrhea, no nausea, no vomiting, no abdominal pain. NEUROLOGICAL: No headaches, no weakness, no numbness. HEMATOLOGICAL: Denies any bleeding or petechiae. GENITOURINARY: Fatigue, weakness, lower extremity swelling MUSCULOSKELETAL/RHEUMATOLOGICAL: Denies any joint pain, swelling, or any muscle pain. ENDOCRINE: Denies any polyuria or polydipsia. PHYSICAL EXAMINATION: GENERAL: The patient is alert and oriented x3, not in any acute distress. Ill appearance HEENT: Pupils are round and equally reacting to light. EOMI CARDIOVASCULAR: S1 and S2 present. No murmurs, rubs, or gallops. PULMONARY: Chest is clear to auscultation, no wheezing or crackles. ABDOMEN: Soft, nontender, nondistended, normoactive bowel sounds. Edwards cath in place MUSCULOSKELETAL: Lower extremity swelling EXTREMITIES: No cyanosis, clubbing, or pedal edema. NEUROLOGICAL: Gross neurological examination did not reveal any focal deficits. Objective - Vital Signs Vital signs: Vital Signs Temp 98 F 01/25/23 08:00 Pulse 56 L 01/25/23 08:00 Resp 16 01/25/23 08:00 BP 139/88 01/25/23 08:00 Pulse Ox 96 01/25/23 08:00 FiO2 Intake & Output 01/24/23 01/25/23 01/25/23 18:59 06:59 18:59 Intake Total 240 Output Total 1250 900 600 Balance -1250 -900 -360 Weight 51.4 kg Intake: Oral 240 Output: Urine 1250 900 600 Other: Voiding Method Indwelling Catheter Indwelling Catheter Indwelling Catheter # Voids 200 # Bowel Movements 1 - Labs CBC & Chem 7: 01/25/23 07:14 01/25/23 07:14 Labs: Abnormal Lab Results - Last 24 Hours (Table) 01/24/23 01/24/23 01/24/23 Range/Units 11:42 12:34 17:00 WBC (3.8-10.6) k/uL RBC (4.30-5.90) m/uL Hgb (13.0-17.5) gm/dL Hct (39.0-53.0) % Chloride 109 H (98-107) mmol/L Carbon Dioxide 20 L (22-30) mmol/L BUN 60 H (9-20) mg/dL Creatinine 1.85 H (0.66-1.25) mg/dL Glucose 102 H (74-99) mg/dL POC Glucose (mg/dL) 144 H 175 H (70-110) mg/dL Calcium 7.8 L (8.4-10.2) mg/dL 01/24/23 01/25/23 01/25/23 Range/Units 20:40 07:14 07:14 WBC 13.1 H (3.8-10.6) k/uL RBC 4.25 L (4.30-5.90) m/uL Hgb 12.4 L (13.0-17.5) gm/dL Hct 38.4 L (39.0-53.0) % Chloride 109 H (98-107) mmol/L Carbon Dioxide (22-30) mmol/L BUN 51 H (9-20) mg/dL Creatinine 1.85 H (0.66-1.25) mg/dL Glucose (74-99) mg/dL POC Glucose (mg/dL) 248 H (70-110) mg/dL Calcium 7.5 L (8.4-10.2) mg/dL Microbiology - Last 24 Hours (Table) 01/21/23 23:13 Urine Culture - Final Urine,Voided Enterococcus faecalis Assessment and Plan Assessment: Assessment and plan * Acute renal failure on chronic kidney disease * History of urinary retention status post Edwards catheter in place present on admission * Urinary tract infection secondary to catheter associated UTI * Chronic congestive heart failure diastolic dysfunction * Elevated troponin likely secondary to kidney disease * Diabetes mellitus type 2 * In regards to acute kidney injury on chronic kidney disease, nephrology consult and follow up her renal profile, continue IV hydration, diuretic and farxiga on hold * In regards to urinary retention, follow-up and maintain Edwards catheter urology consulted, urology recommended to continue Edwards, renal ultrasound ordered * In regards to urinary tract infection >> urine cultures Enterococcus faecalis, patient was on IV Rocephin transition to IV Unasyn, appreciate input from infectious disease * In regards to chronic congestive heart failure hold Lasix, hold farxiga cardiology consulted * In regards to elevated troponin, likely troponin are flat second 2 CKD, cardiology consulted, continue aspirin * In regards to diabetes mellitus Accu-Cheks before meals at bedtime continue patient on correctional insulin monitor for hypoglycemia, oral hypoglycemic agents on hold * Generalized weakness will need physical therapy occupational therapy evalu ation * Potential discharge within the next 48 hours * CODE STATUS is full code
[2023-01-25 12:02] LABS: Glucose,Whole Blood 268 mg/dL (70-110)
--- NOTE | 2023-01-25 12:41 | P.PN ---
Subjective Patient is seen for follow-up for acute kidney injury and chronic kidney disease with previous creatinine 1.7 on 12/15/2022. History of underlying CHF with recent increase in dose of diuretics as outpatient.. Status post IV fluids Serum creatinine decreased to 1.98 No significant complaints today. He wants to go home Objective - Vital Signs Vital signs: Vital Signs Temp 98 F 01/25/23 08:00 Pulse 56 L 01/25/23 08:00 Resp 16 01/25/23 08:00 BP 139/88 01/25/23 08:00 Pulse Ox 96 01/25/23 08:00 FiO2 Intake & Output 01/24/23 01/25/23 01/25/23 18:59 06:59 18:59 Intake Total 240 Output Total 1250 900 600 Balance -1250 -900 -360 Weight 51.4 kg Intake: Oral 240 Output: Urine 1250 900 600 Other: Voiding Method Indwelling Catheter Indwelling Catheter Indwelling Catheter # Voids 200 # Bowel Movements 1 - Exam Patient is awake, comfortable, no acute distress Examination of the heart S1 and S2 Examination of the lungs bilateral breath sounds are heard Abdomen is soft nontender Examination of lower extremities shows no significant edema [employer] exam grossly intact. Periodical confusion - Labs CBC & Chem 7: 01/25/23 07:14 01/25/23 07:14 Labs: Abnormal Lab Results - Last 24 Hours (Table) 01/24/23 01/24/23 01/24/23 Range/Units 12:34 17:00 20:40 WBC (3.8-10.6) k/uL RBC (4.30-5.90) m/uL Hgb (13.0-17.5) gm/dL Hct (39.0-53.0) % Chloride 109 H (98-107) mmol/L Carbon Dioxide 20 L (22-30) mmol/L BUN 60 H (9-20) mg/dL Creatinine 1.85 H (0.66-1.25) mg/dL Glucose 102 H (74-99) mg/dL POC Glucose (mg/dL) 175 H 248 H (70-110) mg/dL Calcium 7.8 L (8.4-10.2) mg/dL 01/25/23 01/25/23 01/25/23 Range/Units 07:14 07:14 12:00 WBC 13.1 H (3.8-10.6) k/uL RBC 4.25 L (4.30-5.90) m/uL Hgb 12.4 L (13.0-17.5) gm/dL Hct 38.4 L (39.0-53.0) % Chloride 109 H (98-107) mmol/L Carbon Dioxide (22-30) mmol/L BUN 51 H (9-20) mg/dL Creatinine 1.85 H (0.66-1.25) mg/dL Glucose (74-99) mg/dL POC Glucose (mg/dL) 268 H (70-110) mg/dL Calcium 7.5 L (8.4-10.2) mg/dL Microbiology - Last 24 Hours (Table) 01/21/23 23:13 Urine Culture - Final Urine,Voided Enterococcus faecalis Assessment and Plan Assessment: 1. Acute kidney injury secondary to her recent diuresis. Blood pressure is not low. Maintained on IV fluids and diuretics on hold. UA shows WBCs more than 182 and urine protein 2+. Patient has chronic indwelling Edwards catheter. 2. 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 Downing as outpatient 3. Pyuria with indwelling Edwards catheter. 4. 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 Chronic kidney disease NKF stage IV with previous creatinine 1.7 on 12/15/2022. Etiology is likely nephrosclerosis versus chronic GN. UA shows 2+ protein but there is significant pyuria noted as well. This will need further workup and evaluation as outpatient. 6. Hypokalemia secondary to diuretics, being replaced Plan: Can DC IV fluids Patient can be discharged from nephrology standpoint. He can resume Lasix 20 mg daily on discharge. Follow-up as outpatient for CK D in 1-2 weeks.
[2023-01-25 16:33] LABS: Glucose,Whole Blood 246 mg/dL (70-110)
--- NOTE | 2023-01-25 16:42 | CDI ---
Documentation Clarification Form Date: From: Morena Craft Phone: [phone] Admit Date: 01/21/2023 09:48:00 PM Patient Name: Meir Cat Visit Number: [id number] Discharge Date: ATTENTION: The Clinical Documentation Specialists (CDI) and [facility] Coding Staff appreciate your assistance in clarifying documentation. Please respond to the clarification below the line at the bottom and electronically sign. The CDI & [facility] Coding staff will review the response and follow-up if needed. Please note: Queries are made part of the Legal Health Record. If you have any questions, please contact the author of this message via ITS. Dr. Deniz Arrgeuin Patient has a documented BMI of 19.0 per Nutrition Assessment on 01/23. Additional clarification is requested. History/Risk Factors: "87-year-old gentleman with past medical history significant for chronic congestive heart failure diastolic dysfunction, diabetes mellitus type 2, lower extremity swelling, acute kidney injury secondary to ATN, recent hydronephrosis with Edwards catheter placement" - Per Medical H&P on 01/22 Clinical Indicators: "underweight" " advanced age, poor appetite, failure to gain appropriate weight" - Per Nutrition Assessment on 01/23 "Fatigue, weakness, lower extremity swelling" "Ill appearance" - Per Medical H&P on 01/22 Patients weight is 64.5kg Patients height is 5'6" Calculated BMI is 19.0 Treatments: "If intake worsens, will consider oral supplement" - Nutrition Assessment 01/23, Dietary Consult, follow up 01/28 Please clarify, is there is an additional diagnosis that is clinically appropriate for this patient? [ ] Underweight [ y ] Malnutrition, (further specify severity and type) [ ] Other, please specify [ ] Unable to determine MTDD
--- NOTE | 2023-01-25 17:07 | US ---
EXAMINATION TYPE: US kidneys/renal and bladder DATE OF EXAM: 01/25/2023 COMPARISON: NONE CLINICAL INDICATION: Male, 87 years old with history of uti and bacteremia; Patient denies any signs or symptoms EXAM MEASUREMENTS: Right Kidney: 11.2 x 5.6 x 5.3 cm Left Kidney: 10.6 x 4.4 x 4.6 cm Post Void Residual Volume: NA mL Right Kidney: No hydro - prominent renal pyramids Left Kidney: No hydro - prominent renal pyramids Bladder: Edwards noted within - Non distended - ? thickened bladder wall for an empty bladder, wall shyann sures up to 14 mm Bilateral Jets seen: not able to assess Normal Post Void Residual: not able to assess There is no evidence for hydronephrosis at this point in time. No shadowing nephrolithiasis is seen. No masses are identified. IMPRESSION: 1. Prominent renal pyramids noted bilaterally, no definite evidence of hydronephrosis. 2. Bladder appears decompressed with a Edwards balloon in its lumen. Bladder wall appears thickened fo r an empty bladder, consider inflammation, infection, neoplasm.
[2023-01-25 19:44] LABS: Glucose,Whole Blood 180 mg/dL (70-110)
[2023-01-25] MEDS: LORazepam 0.5 MG TAB PO PRN (21:40)
[2023-01-25] MEDS: AMPICILLIN-SULBACTAM 3 GM in SODIUM CHLORIDE 0.9% 100 ML IVPB SCH (23:32)
--- NOTE | 2023-01-26 00:26 | P.CONS ---
History of Present Illness - Reason for Consult Consult date: 01/25/23 Enterococcus UTI Requesting physician: Deniz Arreguin - Chief Complaint Decreased appetite and weakness x few days - History of Present Illness Patient is a 87-year-old male with a past medical history significant for hypertension presenting to the hospital 4 days ago for evaluation of decreased appetite and abnormal labs apparently patient was noticed to have UTI in the outpatient setting also noticed to have low potassium and elevated BUN and creatinine for the patient was admitted to the hospital and has been treated by admitting and nephrology services patient was afebrile on admission and no fever have been recorded subsequently patient apparently did have some difficulty urination requiring a Edwards catheter placement patient complaining of some burning of urine and suprapubic discomfort nausea but no vomiting denies having any diarrhea no flank pain no chest pain shortness of breath or cough patient on presentation to the hospital did have white count of 14.8 with a left shift he did have an elevated creatinine of 2.95 which is down to 1.85 patient did have a positive UA urine culture finalized today with Enterococcus faecalis worsening infectious disease was consulted patient has been on Rocephin since admission to the hospital Review of Systems Positive point and negatives has been mentioned in the HPI, complete review of systems was performed and all other systems are negative Past Medical History Past Medical History: Hypertension Additional Past Medical History / Comment(s): pt states that he hasn't been to a PCP in 10 years History of Any Multi-Drug Resistant Organisms: None Reported Past Surgical History: No Surgical Hx Reported Past Anesthesia/Blood Transfusion Reactions: No Reported Reaction, Unable to Obtain Additional Past Anesthesia/Blood Transfusion Reaction / Comm: pt has never had a blood transfusion Past Psychological History: Anxiety Smoking Status: Never smoker Past Alcohol Use History: Rare Past Drug Use History: None Reported - Past Family History Father Family Medical History: Dementia Mother Family Medical History: Cancer Medications and Allergies Home Medications Medication Instructions Recorded Confirmed Type Melatonin(Unknown Dose) 1 tab PO HS PRN 12/12/22 01/21/23 History Furosemide [Lasix] 20 mg PO DAILY #30 tab 12/15/22 01/21/23 Rx Aspirin 81 mg PO DAILY 01/21/23 01/21/23 History Metoprolol Succinate [Metoprolol 12.5 mg PO DAILY 01/21/23 01/21/23 History Succinate ER] Tamsulosin [Flomax] 0.4 mg PO DAILY 01/21/23 01/21/23 History Amoxic-Pot Clav 875-125Mg 1 tab PO Q12HR 5 Days #10 tab 01/28/23 Rx [Augmentin 875-125] Magnesium Oxide [Mag-Ox] 400 mg PO DAILY 7 Days #7 tab 01/28/23 Rx Allergies Allergy/AdvReac Type Severity Reaction Status Date / Time No Known Allergies Allergy Verified 01/21/23 22:40 Physical Exam Vitals: Vital Signs Temp Pulse Resp BP Pulse Ox 01/25/23 08:00 98 F 56 L 16 139/88 96 01/25/23 03:25 97.8 F 75 16 140/65 94 L 01/25/23 02:00 55 L 16 01/25/23 00:00 98.2 F 55 L 16 140/66 100 01/24/23 20:00 98 F 80 18 148/73 99 01/24/23 15:16 98.1 F 67 16 126/65 96 01/24/23 13:53 65 01/24/23 11:28 65 20 133/72 94 L Intake and Output 01/24/23 01/25/23 01/25/23 22:59 06:59 14:59 Intake Total 240 Output Total 875 600 Balance -875 -600 240 Intake: Oral 240 Output: Urine 875 600 Other: Voiding Method Indwelling Catheter Indwelling Catheter Indwelling Catheter # Voids 200 # Bowel Movements 1 Weight 51.4 kg GENERAL DESCRIPTION: Elderly male lying in bed, no distress. No tachypnea or accessory muscle of respiration use. HEENT: Shows Pallor , no scleral icterus. Oral mucous membrane is dry. No pharyngeal erythema or thrush NECK: Trachea central, no thyromegaly. LUNGS: Unlabored breathing. Clear to auscultation anteriorly. No wheeze or crackle. HEART: S1, S2, regular rate and rhythm. No loud murmur ABDOMEN: Soft, no tenderness , guarding or rigidity, no organomegaly EXTREMITIES: No edema of feet. SKIN: No rash, no masses palpable. NEUROLOGICAL: The patient is awake, alert, oriented x3, mood and affect normal. Results CBC & Chem 7: 01/25/23 07:14 01/28/23 06:53 Labs: Abnormal Lab Results - Last 24 Hours (Table) 1201/24/23 01/24/23 Range/Units 11:42 12:34 17:00 WBC (3.8-10.6) k/uL RBC (4.30-5.90) m/uL Hgb (13.0-17.5) gm/dL Hct (39.0-53.0) % Chloride 109 H (98-107) mmol/L Carbon Dioxide 20 L (22-30) mmol/L BUN 60 H (9-20) mg/dL Creatinine 1.85 H (0.66-1.25) mg/dL Glucose 102 H (74-99) mg/dL POC Glucose (mg/dL) 144 H 175 H (70-110) mg/dL Calcium 7.8 L (8.4-10.2) mg/dL 01/24/23 01/25/23 01/25/23 Range/Units 20:40 07:14 07:14 WBC 13.1 H (3.8-10.6) k/uL RBC 4.25 L (4.30-5.90) m/uL Hgb 12.4 L (13.0-17.5) gm/dL Hct 38.4 L (39.0-53.0) % Chloride 109 H (98-107) mmol/L Carbon Dioxide (22-30) mmol/L BUN 51 H (9-20) mg/dL Creatinine 1.85 H (0.66-1.25) mg/dL Glucose (74-99) mg/dL POC Glucose (mg/dL) 248 H (70-110) mg/dL Calcium 7.5 L (8.4-10.2) mg/dL Microbiology - Last 24 Hours (Table) 01/21/23 23:13 Urine Culture - Final Urine,Voided Enterococcus faecalis Assessment and Plan (1) Enterococcus faecalis infection Status: Acute Code(s): A49.8 - OTHER BACTERIAL INFECTIONS OF UNSPECIFIED SITE SNOMED Code(s): 265748800 (2) Leukocytosis Status: Acute Code(s): D72.829 - ELEVATED WHITE BLOOD CELL COUNT, UNSPECIFIED SNOMED Code(s): 432977339 (3) UTI (urinary tract infection) Status: Acute Code(s): N39.0 - URINARY TRACT INFECTION, SITE NOT SPECIFIED SNOMED Code(s): 61458335 Plan: 1patient with Enterococcus faecalis urinary tract infection in this patient presented to hospital with weakness nausea vomiting decreased appetite did have elevated BUN and creatinine on admission, however need to rule out obstructive uropathy and a complicated urinary tract infection 2-we will check ultrasound of the kidney and bladder area 3-discontinue Rocephin 4-start the patient on Unasyn 3 g every 8 hours We will follow on clinical condition and cultures to further adjust medication if needed Thank you for this consultation we will follow the patient along with you Dictation was produced using [employer] dictation software. please excuse any grammatical, word or spelling errors. Time with Patient: Greater than 30
[2023-01-26] MEDS: SODIUM CHLORIDE 0.9% 1,000 ML IV SCH (05:36)
[2023-01-26] MEDS: INSULIN ASPART (NovoLOG) 100 UNIT/ML VIAL SQ SCH ×4 (06:45→19:37)
--- NOTE | 2023-01-26 09:33 | P.PN ---
Subjective Patient is seen in follow-up for acute kidney injury on chronic kidney disease. Renal felt is stable at last 2 days. Has Edwards catheter. Nonoliguric. No active complaints. Vital signs are stable. General: No acute distress. HEENT: Head exam is unremarkable. LUNGS: No audible rhonchi or wheezes. HEART: Rate and Rhythm are regular. ABDOMEN: Nontender. EXTREMITITES: No edema. Objective - Vital Signs Vital signs: Vital Signs Temp 98 F 01/25/23 23:35 Pulse 74 01/26/23 03:33 Resp 17 01/26/23 03:33 BP 128/72 01/26/23 03:33 Pulse Ox 99 01/26/23 03:33 FiO2 Intake & Output 01/25/23 01/26/23 01/26/23 18:59 06:59 18:59 Intake Total 480 Output Total 1225 1050 450 Balance -745 -1050 -450 Intake: Oral 480 Output: Urine 1225 1050 450 Other: Voiding Method Indwelling Catheter Indwelling Catheter - Labs CBC & Chem 7: 01/25/23 07:14 01/25/23 07:14 Labs: Abnormal Lab Results - Last 24 Hours (Table) 01/25/23 01/25/23 01/25/23 Range/Units 12:00 16:31 19:33 POC Glucose (mg/dL) 268 H 246 H 180 H (70-110) mg/dL Assessment and Plan Plan: Assessment: 1. Acute kidney injury secondary to vasomotor nephropathy secondary to diuresis. Renal function improving. Creatinine 2.95 on admission and down to 1.85 yesterday. No hydronephrosis noted on kidney ultrasound. 2. Chronic kidney disease stage IV with baseline creatinine 1.7-1.8 from November 2022 secondary to nephrosclerosis/diabetic kidney disease. 3. Chronic systolic CHF with ejection fraction of 20-25%. 4. Chronic urinary retention with hydronephrosis. Urology following. Has Edwards catheter. On Flomax. 5. Enterococcus UTI on antibiotics. Plan: Encouraged oral intake. Off IV fluids. Resume Farxiga. Follow-up outpatient in 1 week post discharge.
[2023-01-26 12:05] LABS: Glucose,Whole Blood 81 mg/dL (70-110)
[2023-01-26] MEDS: AMPICILLIN-SULBACTAM 3 GM in SODIUM CHLORIDE 0.9% 100 ML IVPB SCH ×2 (12:05→23:29)
[2023-01-26] MEDS: METOPROLOL TARTRATE 12.5 MG TAB PO SCH ×2 (12:05→19:36)
[2023-01-26] MEDS: ASPIRIN 81 MG PO SCH (12:05)
[2023-01-26] MEDS: TAMSULOSIN 0.4 MG CAP.ER.24H PO SCH (12:05)
--- NOTE | 2023-01-26 12:38 | P.PN ---
Subjective Progress Note Date: 01/26/23 Patient is an 87-year-old male with past medical history of chronic diastolic heart failure, acute kidney injury, diabetes mellitus type 2 with hemoglobin A1c 6.9, valvular heart disease with moderate mitral regurgitation, moderate aortic regurgitation. Patient was recently hospitalized at the end of November he was treated at bedtime for acute on chronic heart failure, acute kidney injury. Patient states that he came in the hospital due to leg pain on the left. He denies having any lower extremity edema. He denies having any medical history. Doubt the patient has been taking his medications as instructed. He denies history of smoking. He has alcohol a few times per week. Patient states that he has been a little dizzy. No chest pain no shortness of breath. He does have some dyspnea on exertion. He denies palpitations, no syncopal episodes. No cough no fever. No blood in his stools or urine. No history of stroke or seizure. He denies any wheezing. Patient is seen today in the emergency center waiting for a bed of the cardiac stepdown unit. Patient noted to have worsening renal failure since he left the hospital on 12/15. EKG sinus rhythm with PACs Chest x-ray: No acute cardiopulmonary disease. COPD. WBC 14.8, hemoglobin 13, platelet count 326. Sodium 145, potassium 2.9, chloride 110, CO2 23, BUN 104, creatinine 2.75 down from 2.95. Troponins 0.085, 0.097, 0.096. ProBNP 22,700 Home cardiac medications: Aspirin 81 mg daily, Lasix 20 mg daily, Toprol-XL 12.5 mg daily, Jardiance 10 mg daily. Echocardiogram performed 12/13/2022 revealed EF of 20-25%, severely increased LV cavity size. Severely reduced global LV systolic function. Inferior lateral hypokinesia. Moderate mitral regurgitation, moderate left atrial dilatation, calcified aortic valve with moderate aortic regurgitation. 01/26/2023 The patient was seen and examined resting comfortably in bed. He is feeling well. Denies shortness of breath, orthopnea, PND, edema, or chest pain. Nephrology has resumed the Farxiga at 5 mg daily. Objective - Vital Signs Vital signs: Vital Signs Temp 98 F 01/25/23 23:35 Pulse 81 01/26/23 12:21 Resp 18 01/26/23 12:21 BP 169/76 01/26/23 12:21 Pulse Ox 97 01/26/23 12:21 FiO2 Intake & Output 01/25/23 01/26/23 01/26/23 18:59 06:59 18:59 Intake Total 480 Output Total 1225 1050 450 Balance -745 -1050 -450 Intake: Oral 480 Output: Urine 1225 1050 450 Other: Voiding Method Indwelling Catheter Indwelling Catheter - Exam HEENT: Head is normocephalic. Pupils are equal, round. Sclerae anicteric. No JVD. No carotid bruit. CHEST EXAMINATION: Lungs are clear to auscultation. No chest wall tenderness is noted on palpation or with deep breathing. HEART EXAMINATION: Regular rate and rhythm. S1, S2 heard. Systolic murmur. ABDOMEN: Soft, nontender. EXTREMITIES: 2+ peripheral pulses, minimal lower extremity edema. NEUROLOGIC EXAMINATION: Patient is awake, alert and oriented. - Labs CBC & Chem 7: 01/25/23 07:14 01/25/23 07:14 Labs: Abnormal Lab Results - Last 24 Hours (Table) 01/25/23 01/25/23 Range/Units 16:31 19:33 POC Glucose (mg/dL) 246 H 180 H (70-110) mg/dL Assessment and Plan Assessment: Chronic systolic heart failure Acute kidney injury Hypertension Diabetes mellitus type 2, hemoglobin A1c 6.9 Urinary retention UTI Valvular heart disease with moderate mitral regurgitation and moderate aortic regurgitation Plan: From cardiology's perspective medications were reviewed and we will continue the same. Continue to monitor renal function and electrolytes. We will continue to follow the patient and provide further recommendations accordingly. Nurse practitioner note has been reviewed, I agree with documented findings and plan of care. Patient was seen and examined.
[2023-01-26 16:54] LABS: Glucose,Whole Blood 146 mg/dL (70-110)
[2023-01-26 19:29] LABS: Glucose,Whole Blood 177 mg/dL (70-110)
[2023-01-26] MEDS: LORazepam 0.5 MG TAB PO PRN (19:36)
--- NOTE | 2023-01-27 05:24 | P.PN ---
Subjective * 87-year-old gentleman with past medical history significant for chronic congestive heart failure diastolic dysfunction, diabetes mellitus type 2, l ower extremity swelling, acute kidney injury secondary to ATN, recent hydronephrosis with Edwards catheter placement, valvular heart disease who was admitted in November 2022 with symptoms related to heart failure. Patient was treated with IV Lasix and transitioned to oral Lasix. During previous hosp italization patient was also seen by urology and a Edwards catheter placed with recommendation to have outpatient follow-up * Patient presents because of decreased appetite and abnormal blood work. was at an outside hospital where he was presented with weakness and decreased appetite. Workup done was consistent with urinary tract infection impaired renal function and a leftward abnormality.. Patient requested transfer to [facility] due to having medical services here * Workup initiated in ER included CBC which were WBC of 14.8 hemoglobin 13 platelet count of 326 * Serum chemistry obtained showed sodium 142 potassium 2.8B UN 113 creatinine 2.95 * Initial troponin obtained 0.097, * Urinalysis obtained showed urine WBC greater than 182 few bacteria, proteinuria noted large leukocyte esterase * Patient was started on IV fluid, given potassium replacement, Lasix placed on hold and started on antibiotics for urinary tract infection * 01/23/2023: Patient seen and evaluated bedside, patient is alert and oriented 2, patient does complain of generalized weakness. Appreciate input from nephrology, diuretics on hold, the fluids 75 mL per hour continue to monitor intake and output. Appreciate input from neurology, cardiology, nephrology * 01/24/2023: Patient seen and evaluated bedside, patient is alert and oriented to person place and situation he does get confused at times during co nversation. Blood work reviewed creatinine 1.85, potassium 4, patient remains on room air * 01/25/2023: Patient seen and evaluated bedside patient is alert and oriented to person and situation, urine cultures reviewed patient does have enterococcus, antibiotics adjusted. Continue to monitor for improvement WBC count, ultrasound kidneys ordered as well 01/26/2023 Patient denies any complaints Is generally weak improving slowly and gradually He has indwelling Edwards catheter Urine culture is growing sensitive enterococcal faecalis Currently on Unasyn We recommend to hold farxiga for now as patient has UTI and indwelling catheter Objective - Vital Signs Vital signs: Vital Signs Temp 98 F 01/25/23 23:35 Pulse 74 01/26/23 03:33 Resp 17 01/26/23 03:33 BP 128/72 01/26/23 03:33 Pulse Ox 99 01/26/23 03:33 FiO2 Intake & Output 01/25/23 01/26/23 01/26/23 18:59 06:59 18:59 Intake Total 480 Output Total 1225 1050 450 Balance -745 -1050 -450 Intake: Oral 480 Output: Urine 1225 1050 450 Other: Voiding Method Indwelling Catheter Indwelling Catheter - Exam GENERAL: The patient is alert and oriented x3, not in any acute distress. Well developed, well nourished. HEENT: Pupils are round and equally reacting to light. EOMI. No scleral icterus. No conjunctival pallor. Normocephalic, atraumatic. No pharyngeal erythema. No thyromegaly. CARDIOVASCULAR: S1 and S2 present. No murmurs, rubs, or gallops. PULMONARY: Chest is clear to auscultation, no wheezing , no crackles. -ABDOMEN: Soft, nontender, nondistended, normoactive bowel sounds. No palpable organomegaly. Indwelling Edwards catheter MUSCULOSKELETAL: No joint swelling or deformity. EXTREMITIES: No cyanosis, clubbing, or pedal edema. NEUROLOGICAL: Gross neurological examination did not reveal any focal deficits. SKIN: No rashes. no petechiae. - Labs CBC & Chem 7: 01/25/23 07:14 01/25/23 07:14 Labs: Abnormal Lab Results - Last 24 Hours (Table) 01/25/23 01/25/23 01/25/23 Range/Units 12:00 16:31 19:33 POC Glucose (mg/dL) 268 H 246 H 180 H (70-110) mg/dL Assessment and Plan Assessment: * Acute renal failure on chronic kidney disease, creatinine at baseline * Acute urinary tract infection secondary to enterococcus faecalis related to indwelling Edwards catheter * History of urinary retention status post Edwards catheter in place present on admission * Chronic congestive heart failure diastolic dysfunction * Elevated troponin likely secondary to kidney disease * Diabetes mellitus type 2 Plan: Continue with Unasyn Urine culture is noted Hold [facility] for now Nephrology input is appreciated Cardiology and infectious disease consult on the case Labs and medication were reviewed.. Continue same treatment. Continue with symptomatic treatment. Resume home medication. Monitor labs and vitals. DVT and GI prophylaxis. Further recommendations as per clinical course of the p atient DVT prophylaxis: Subcutaneous heparin GI Prophylaxis: Pepcid PT/OT: Home health Prognosis is guarded
[2023-01-27 06:14] LABS: Glucose,Whole Blood 91 mg/dL (70-110)
[2023-01-27] MEDS: INSULIN ASPART (NovoLOG) 100 UNIT/ML VIAL SQ SCH ×4 (06:16→23:53)
[2023-01-27] MEDS ORDERED: DAPAGLIFLOZIN PROPANEDIOL 5 MG TABLET PO SCH (09:00)
[2023-01-27] MEDS ORDERED: FAMOTIDINE 20 MG/2 ML VIAL IV SCH (09:00)
[2023-01-27] MEDS ORDERED: ZINC OXIDE PASTE (Z-GUARD) 1 APPLIC APPLIC TOPICAL PRN (09:48)
[2023-01-27] MEDS: ASPIRIN 81 MG PO SCH (10:05)
[2023-01-27] MEDS: FAMOTIDINE 20 MG TAB PO SCH (10:05)
[2023-01-27] MEDS: HEPARIN SODIUM,PORCINE 5,000 UNIT/ML 1 ML VIAL SQ SCH ×2 (10:05→21:32)
[2023-01-27] MEDS: TAMSULOSIN 0.4 MG CAP.ER.24H PO SCH (10:05)
[2023-01-27] MEDS: METOPROLOL TARTRATE 12.5 MG TAB PO SCH ×2 (10:05→21:32)
[2023-01-27 10:43] LABS: African American GFR (CKD) 40 (>60 ml/min/1.73 sqM); Anion Gap 10 mmol/L; Blood Urea Nitrogen 52 mg/dL (9-20); Calcium 7.6 mg/dL (8.4-10.2); Carbon Dioxide 22 mmol/L (22-30); Chloride 105 mmol/L (98-107); Glucose 122 mg/dL (74-99); Magnesium 1.6 mg/dL (1.6-2.3); Non-African American GFR(CKD) 35 (>60 ml/min/1.73 sqM); Potassium 3.7 mmol/L (3.5-5.1); Sodium 137 mmol/L (137-145)
[2023-01-27] MEDS ORDERED: POTASSIUM CHLORIDE ER 20 MEQ TAB.ER PO STA (11:50)
--- NOTE | 2023-01-27 11:52 | P.PN ---
Subjective Patient is seen in follow-up for acute kidney injury on chronic kidney disease. Renal felt is stable. Has Edwards catheter. Nonoliguric. No active complaints. Vital signs are stable. General: No acute distress. HEENT: Head exam is unremarkable. LUNGS: No audible rhonchi or wheezes. HEART: Rate and Rhythm are regular. ABDOMEN: Nontender. EXTREMITITES: No edema. Objective - Vital Signs Vital signs: Vital Signs Temp 97.8 F 01/27/23 04:00 Pulse 91 01/27/23 11:21 Resp 16 01/27/23 11:21 BP 132/66 01/27/23 10:03 Pulse Ox 98 01/27/23 10:03 FiO2 Intake & Output 01/26/23 01/27/23 01/27/23 18:59 06:59 18:59 Intake Total 958 360 Output Total 1225 1350 Balance -267 -1350 360 Intake: Oral 958 360 Output: Urine 1225 1350 Other: Voiding Method Indwelling Catheter Indwelling Catheter Indwelling Catheter - Labs CBC & Chem 7: 01/25/23 07:14 01/27/23 09:43 Labs: Abnormal Lab Results - Last 24 Hours (Table) 01/26/23 01/26/23 01/27/23 Range/Units 16:49 19:27 09:43 BUN 52 H (9-20) mg/dL Creatinine 1.74 H (0.66-1.25) mg/dL Glucose 122 H (74-99) mg/dL POC Glucose (mg/dL) 146 H 177 H (70-110) mg/dL Calcium 7.6 L (8.4-10.2) mg/dL Microbiology - Last 24 Hours (Table) 01/25/23 10:25 Blood Culture - Preliminary Blood Assessment and Plan Plan: Assessment: 1. Acute kidney injury secondary to vasomotor nephropathy secondary to diuresis. Renal function improved. Creatinine 2.95 on admission and stable at 1.74 today. No hydronephrosis noted on kidney ultrasound. 2. Chronic kidney disease stage IV with baseline creatinine 1.7-1.8 from November 2022 secondary to nephrosclerosis/diabetic kidney disease. 3. Chronic systolic CHF with ejection fraction of 20-25%. 4. Chronic urinary retention with hydronephrosis. Urology following. Has Edwards catheter. On Flomax. 5. Enterococcus UTI on antibiotics. 6. Hypokalemia from poor intake. Plan: Encouraged oral intake. Off IV fluids. Farxiga held due to UTI. Add low dose lasix. Check CXR. Replace potassium. Add maintenance potassium supplementation. Follow-up outpatient in 1 week post discharge.
[2023-01-27 11:57] LABS: Glucose,Whole Blood 128 mg/dL (70-110)
--- NOTE | 2023-01-27 12:23 | XR ---
EXAMINATION TYPE: XR chest 1V DATE OF EXAM: 01/27/2023 COMPARISON: 01/21/2023 HISTORY: 87 year-old male shortness of breath TECHNIQUE: Single frontal view of the chest is obtained. FINDINGS: Heart upper limits are normal in size. Hyperinflation. Chronic full-thickness rotator cuff tears in b oth shoulders. No consolidation or pleural effusion. IMPRESSION: COPD and borderline heart size. No definite acute process.
[2023-01-27] MEDS: FUROSEMIDE 20 MG TAB PO SCH (13:02)
[2023-01-27] MEDS: MAGNESIUM OXIDE 400 MG TAB PO SCH (13:02)
[2023-01-27] MEDS: AMPICILLIN-SULBACTAM 3 GM in SODIUM CHLORIDE 0.9% 100 ML IVPB SCH ×2 (13:02→23:43)
--- NOTE | 2023-01-27 14:59 | P.PN ---
Subjective Progress Note Date: 01/27/23 PROGRESS NOTE The patient is an 87-year-old male with a known history of chronic heart failure, diabetes, mitral and aortic valve disease. He is feeling better today. He denies any chest discomfort, dizziness or palpitations. His ejection fraction was severely impaired by echocardiography was an ejection fraction of 20-25% with moderate mitral and aortic regurgitation. Medications: Aspirin, Lasix 20 mg daily, metoprolol 12.5 mg twice a day, Flomax, insulin PHYSICAL EXAMINATION: Blood pressure 132/66 heart rate 91 LUNGS: Clear to auscultation HEART: Regular rate and rhythm, S1, S2. No S3. Systolic ejection murmur ABDOMEN: Soft, nontender, no organomegaly EXTREMETIES: No edema LAB: BUN 52, creatinine 1.74 IMPRESSION: 1. Heart failure with impaired systolic function 2. Chronic kidney disease 3. Diabetes 4. Mitral regurgitation PLAN: 1. Continue present therapy 2. Follow renal functions 3. Depending on the trend of his renal function adjust his medical regimen 4. Depending on his progress further recommendations will be made Objective - Vital Signs Vital signs: Vital Signs Temp 97.8 F 01/27/23 04:00 Pulse 91 01/27/23 11:21 Resp 16 01/27/23 11:21 BP 132/66 01/27/23 10:03 Pulse Ox 98 01/27/23 10:03 FiO2 Intake & Output 01/26/23 01/27/23 01/27/23 18:59 06:59 18:59 Intake Total 958 360 Output Total 1225 1350 Balance -267 -1350 360 Intake: Oral 958 360 Output: Urine 1225 1350 Other: Voiding Method Indwelling Catheter Indwelling Catheter Indwelling Catheter - Labs CBC & Chem 7: 01/25/23 07:14 01/27/23 09:43 Labs: Abnormal Lab Results - Last 24 Hours (Table) 01/26/23 01/26/23 01/27/23 Range/Units 16:49 19:27 09:43 BUN 52 H (9-20) mg/dL Creatinine 1.74 H (0.66-1.25) mg/dL Glucose 122 H (74-99) mg/dL POC Glucose (mg/dL) 146 H 177 H (70-110) mg/dL Calcium 7.6 L (8.4-10.2) mg/dL 01/27/23 Range/Units 11:49 BUN (9-20) mg/dL Creatinine (0.66-1.25) mg/dL Glucose (74-99) mg/dL POC Glucose (mg/dL) 128 H (70-110) mg/dL Calcium (8.4-10.2) mg/dL Microbiology - Last 24 Hours (Table) 01/25/23 10:25 Blood Culture - Preliminary Blood
[2023-01-27 16:37] LABS: Glucose,Whole Blood 142 mg/dL (70-110)
[2023-01-27 20:42] VITALS: TEMP 98.1
--- NOTE | 2023-01-27 21:36 | P.PN ---
Subjective Progress Note Date: 01/26/23 Principal diagnosis: Reason for follow up is enterococus UTI This is a telehealth visit Patient is a 87-year-old male with a past medical history significant for hypertension presenting to the hospital 4 days ago for evaluation of decreased appetite and abnormal labs patient did have a positive UA along with urinary symptoms concerning for symptomatic urinary infection and urine has been finalized with Enterococcus faecalis. On today's evaluation that is 01/26/2023 patient denies having any fever or any chills, the patient is breathing comfortably on room air patient seem to be slightly upset and did not want to talk or provide any history no vomiting or diarrhea has been reported by the nursing staff. Patient did have a white count of 13.1 creatinine 1.85 as of yesterday no labs for today patient did have a abdominal bladder ultrasound no definite hydronephr osis Objective - Vital Signs Vital signs: Vital Signs Temp 98 F 01/25/23 23:35 Pulse 74 01/26/23 03:33 Resp 17 01/26/23 03:33 BP 128/72 01/26/23 03:33 Pulse Ox 99 01/26/23 03:33 FiO2 Intake & Output 01/25/23 01/26/23 01/26/23 18:59 06:59 18:59 Intake Total 480 Output Total 1225 1050 450 Balance -745 -1050 -450 Intake: Oral 480 Output: Urine 1225 1050 450 Other: Voiding Method Indwelling Catheter Indwelling Catheter - Exam GENERAL DESCRIPTION: Elderly male lying in bed in no distress RESPIRATORY SYSTEM: Unlabored breathing , decreased breath sounds at bases HEART: S1 S2 regular rate and rhythm ABDOMEN: Soft , no tenderness EXTREMITIES: No edema feet Exam completed with the help of [employer] - Labs CBC & Chem 7: 01/25/23 07:14 01/27/23 09:43 Labs: Abnormal Lab Results - Last 24 Hours (Table) 01/25/23 01/25/23 01/25/23 Range/Units 12:00 16:31 19:33 POC Glucose (mg/dL) 268 H 246 H 180 H (70-110) mg/dL Assessment and Plan (1) UTI (urinary tract infection) Current Visit: Yes Status: Acute Code(s): N39.0 - URINARY TRACT INFECTION, SITE NOT SPECIFIED SNOMED Code(s): 77661459 (2) Leukocytosis Current Visit: Yes Status: Acute Code(s): D72.829 - ELEVATED WHITE BLOOD CELL COUNT, UNSPECIFIED SNOMED Code(s): 113138148 Plan: 1patient with Enterococcus faecalis urinary tract infection in this patient presented to hospital with weakness nausea vomiting decreased appetite did have elevated BUN and creatinine on admission, however need to rule out obstructive uropathy and a complicated urinary tract infection 2ultrasound of the kidney bladder area did not show any hydronephrosis. 3we will keep the patient on Unasyn while inpatient and monitor his clinical course closely Dictation was produced using [employer] dictation software. please excuse any grammatical, word or spelling errors. Time with Patient: Less than 30
--- NOTE | 2023-01-27 21:39 | P.PN ---
Subjective Progress Note Date: 01/27/23 Principal diagnosis: Reason for follow up is enterococus UTI This is a telehealth visit Patient is a 87-year-old male with a past medical history significant for hypertension presenting to the hospital 4 days ago for evaluation of decreased appetite and abnormal labs patient did have a positive UA along with urinary symptoms concerning for symptomatic urinary infection and urine has been finalized with Enterococcus faecalis. On today's evaluation that is 01/27/2023 patient remains to be afebrile, the patient is breathing comfortably on room air without need for supplemental oxygen denies any chest pain occasional cough no nausea no current abdominal pain or diarrhea Patient did have a white count of 13.1 as of 01/25/2023 creatinine is down to 1.74 Objective - Vital Signs Vital signs: Vital Signs Temp 97.8 F 01/27/23 04:00 Pulse 91 01/27/23 10:03 Resp 16 01/27/23 10:03 BP 132/66 01/27/23 10:03 Pulse Ox 98 01/27/23 10:03 FiO2 Intake & Output 01/26/23 01/27/23 01/27/23 18:59 06:59 18:59 Intake Total 958 Output Total 1225 1350 Balance -267 -1350 Intake: Oral 958 Output: Urine 1225 1350 Other: Voiding Method Indwelling Catheter Indwelling Catheter - Exam GENERAL DESCRIPTION: Elderly male lying in bed in no distress RESPIRATORY SYSTEM: Unlabored breathing , decreased breath sounds at bases HEART: S1 S2 regular rate and rhythm ABDOMEN: Soft , no tenderness EXTREMITIES: No edema feet Exam completed with the help of [employer] - Labs CBC & Chem 7: 01/25/23 07:14 01/27/23 09:43 Labs: Abnormal Lab Results - Last 24 Hours (Table) 01/26/23 01/26/23 Range/Units 16:49 19:27 POC Glucose (mg/dL) 146 H 177 H (70-110) mg/dL Microbiology - Last 24 Hours (Table) 01/25/23 10:25 Blood Culture - Preliminary Blood Assessment and Plan (1) Leukocytosis Current Visit: Yes Status: Acute Code(s): D72.829 - ELEVATED WHITE BLOOD CELL COUNT, UNSPECIFIED SNOMED Code(s): 405943093 (2) UTI (urinary tract infection) Current Visit: Yes Status: Acute Code(s): N39.0 - URINARY TRACT INFECTION, SITE NOT SPECIFIED SNOMED Code(s): 29427443 Plan: 1patient with Enterococcus faecalis urinary tract infection in this patient presented to hospital with weakness nausea vomiting decreased appetite did have elevated BUN and creatinine on admission, however need to rule out obstructive uropathy and a complicated urinary tract infection 2ultrasound of the kidney bladder area did not show any hydronephrosis. 3patient did have some clinical improvement and will continue with Unasyn while inpatient and plan to finish therapy with oral Augmentin Dictation was produced using [employer] dictation software. please excuse any grammatical, word or spelling errors. Time with Patient: Less than 30
--- NOTE | 2023-01-27 23:20 | P.PN ---
Subjective * 87-year-old gentleman with past medical history significant for chronic congestive heart failure diastolic dysfunction, diabetes mellitus type 2, l ower extremity swelling, acute kidney injury secondary to ATN, recent hydronephrosis with Edwards catheter placement, valvular heart disease who was admitted in November 2022 with symptoms related to heart failure. Patient was treated with IV Lasix and transitioned to oral Lasix. During previous hosp italization patient was also seen by urology and a Edwards catheter placed with recommendation to have outpatient follow-up * Patient presents because of decreased appetite and abnormal blood work. was at an outside hospital where he was presented with weakness and decreased appetite. Workup done was consistent with urinary tract infection impaired renal function and a leftward abnormality.. Patient requested transfer to [facility] due to having medical services here * Workup initiated in ER included CBC which were WBC of 14.8 hemoglobin 13 platelet count of 326 * Serum chemistry obtained showed sodium 142 potassium 2.8B UN 113 creatinine 2.95 * Initial troponin obtained 0.097, * Urinalysis obtained showed urine WBC greater than 182 few bacteria, proteinuria noted large leukocyte esterase * Patient was started on IV fluid, given potassium replacement, Lasix placed on hold and started on antibiotics for urinary tract infection * 01/23/2023: Patient seen and evaluated bedside, patient is alert and oriented 2, patient does complain of generalized weakness. Appreciate input from nephrology, diuretics on hold, the fluids 75 mL per hour continue to monitor intake and output. Appreciate input from neurology, cardiology, nephrology * 01/24/2023: Patient seen and evaluated bedside, patient is alert and oriented to person place and situation he does get confused at times during co nversation. Blood work reviewed creatinine 1.85, potassium 4, patient remains on room air * 01/25/2023: Patient seen and evaluated bedside patient is alert and oriented to person and situation, urine cultures reviewed patient does have enterococcus, antibiotics adjusted. Continue to monitor for improvement WBC count, ultrasound kidneys ordered as well 01/26/2023 Patient denies any complaints Is generally weak improving slowly and gradually He has indwelling Edwards catheter Urine culture is growing sensitive enterococcal faecalis Currently on Unasyn We recommend to hold farxiga for now as patient has UTI and indwelling catheter 01/27/2023 Patient improving slowly and gradually No much urinary symptoms He has indwelling Edwards catheter with recommendation to follow up with Dr. Gamble as an outpatient and patient is agreeable, family and at bedside and she told me she is going to remind him. He is currently on Unasyn. No normal saline. Urine culture is growing Enterococcus faecalis which is sensitive Chest x-ray is unremarkable Possible discharge in 24-48 hours Objective - Vital Signs Vital signs: Vital Signs Temp 97.8 F 01/27/23 04:00 Pulse 80 01/27/23 17:53 Resp 16 01/27/23 17:53 BP 143/66 01/27/23 17:53 Pulse Ox 96 01/27/23 17:53 FiO2 Intake & Output 01/27/23 01/27/23 01/28/23 06:59 18:59 06:59 Intake Total 1600 Output Total 1350 Balance -1350 1600 Intake: Intake, IV Titration 100 Amount Ampicillin-Sulbactam 3 gm 100 In Sodium Chloride 0.9% 100 ml @ 200 mls/hr IVPB Q12H [facility] Rx#:[id number] Oral 1500 Output: Urine 1350 Other: Voiding Method Indwelling Catheter Indwelling Catheter - Exam GENERAL: The patient is alert and oriented x3, not in any acute distress. Well developed, well nourished. HEENT: Pupils are round and equally reacting to light. EOMI. No scleral icterus. No conjunctival pallor. Normocephalic, atraumatic. No pharyngeal erythema. No thyromegaly. CARDIOVASCULAR: S1 and S2 present. No murmurs, rubs, or gallops. PULMONARY: Chest is clear to auscultation, no wheezing , no crackles. -ABDOMEN: Soft, nontender, nondistended, normoactive bowel sounds. No palpable organomegaly. Indwelling Edwards catheter MUSCULOSKELETAL: No joint swelling or deformity. EXTREMITIES: No cyanosis, clubbing, or pedal edema. NEUROLOGICAL: Gross neurological examination did not reveal any focal deficits. SKIN: No rashes. no petechiae. - Labs CBC & Chem 7: 01/25/23 07:14 01/27/23 09:43 Labs: Abnormal Lab Results - Last 24 Hours (Table) 01/27/23 01/27/23 01/27/23 Range/Units 09:43 11:49 16:27 BUN 52 H (9-20) mg/dL Creatinine 1.74 H (0.66-1.25) mg/dL Glucose 122 H (74-99) mg/dL POC Glucose (mg/dL) 128 H 142 H (70-110) mg/dL Calcium 7.6 L (8.4-10.2) mg/dL Microbiology - Last 24 Hours (Table) 01/25/23 10:25 Blood Culture - Preliminary Blood Assessment and Plan Assessment: * Acute renal failure on chronic kidney disease, creatinine at baseline * Acute urinary tract infection secondary to enterococcus faecalis related to indwelling Edwards catheter * History of urinary retention status post Edwards catheter in place present on admission * Chronic congestive heart failure diastolic dysfunction * Elevated troponin likely secondary to kidney disease * Diabetes mellitus type 2 Plan: Continue with Unasyn Urine culture is noted Hold luis manuelsd for now Nephrology input is appreciated Cardiology and infectious disease consult on the case Labs and medication were reviewed.. Continue same treatment. Continue with symptomatic treatment. Resume home medication. Monitor labs and vitals. DVT and GI prophylaxis. Further recommendations as per clinical course of the patient DVT prophylaxis: Subcutaneous heparin GI Prophylaxis: Pepcid PT/OT: Home health Prognosis is guarded
[2023-01-27 23:58] VITALS: RESP 16
[2023-01-28 02:17] LABS: Glucose,Whole Blood 136 mg/dL (70-110)
[2023-01-28 05:59] LABS: Glucose,Whole Blood 101 mg/dL (70-110)
[2023-01-28] MEDS: INSULIN ASPART (NovoLOG) 100 UNIT/ML VIAL SQ SCH ×3 (06:17→17:35)
[2023-01-28 08:32] LABS: African American GFR (CKD) 36 (>60 ml/min/1.73 sqM); Anion Gap 9 mmol/L; Blood Urea Nitrogen 52 mg/dL (9-20); Calcium 7.7 mg/dL (8.4-10.2); Carbon Dioxide 23 mmol/L (22-30); Chloride 106 mmol/L (98-107); Glucose 94 mg/dL (74-99); Magnesium 1.7 mg/dL (1.6-2.3); Non-African American GFR(CKD) 31 (>60 ml/min/1.73 sqM); Potassium 3.9 mmol/L (3.5-5.1); Sodium 138 mmol/L (137-145)
[2023-01-28] MEDS: TAMSULOSIN 0.4 MG CAP.ER.24H PO SCH (09:37)
[2023-01-28] MEDS: FAMOTIDINE 20 MG TAB PO SCH (09:37)
[2023-01-28] MEDS: METOPROLOL TARTRATE 12.5 MG TAB PO SCH (09:37)
[2023-01-28] MEDS: MAGNESIUM OXIDE 400 MG TAB PO SCH (09:37)
[2023-01-28] MEDS: FUROSEMIDE 20 MG TAB PO SCH (09:37)
[2023-01-28] MEDS: ASPIRIN 81 MG PO SCH (09:37)
[2023-01-28] MEDS: HEPARIN SODIUM,PORCINE 5,000 UNIT/ML 1 ML VIAL SQ SCH (09:38)
--- NOTE | 2023-01-28 10:35 | P.PN ---
Subjective Patient is seen in follow-up for acute kidney injury on chronic kidney disease. Renal function stable. Has Edwards catheter. Nonoliguric. No active complaints. Family present at bedside. Vital signs are stable. General: No acute distress. HEENT: Head exam is unremarkable. LUNGS: No audible rhonchi or wheezes. HEART: Rate and Rhythm are regular. ABDOMEN: Nontender. EXTREMITITES: No edema. Objective - Vital Signs Vital signs: Vital Signs Temp 98.1 F 01/27/23 20:32 Pulse 81 01/28/23 10:04 Resp 16 01/28/23 10:04 BP 140/71 01/28/23 09:45 Pulse Ox 94 L 01/28/23 09:45 FiO2 Intake & Output 01/27/23 01/28/23 01/28/23 18:59 06:59 18:59 Intake Total 1600 120 Output Total 2500 475 Balance 1600 2500 -355 Intake: Intake, IV Titration 100 Amount Ampicillin-Sulbactam 3 gm 100 In Sodium Chloride 0.9% 100 ml @ 200 mls/hr IVPB Q12H [facility] Rx#:[id number] Oral 1500 120 Output: Urine 2500 475 Uretheral (Edwards) 475 Other: Voiding Method Indwelling Catheter Indwelling Catheter Urinal - Labs CBC & Chem 7: 01/25/23 07:14 01/28/23 06:53 Labs: Abnormal Lab Results - Last 24 Hours (Table) 01/27/23 01/27/23 01/27/23 Range/Units 09:43 11:49 16:27 BUN 52 H (9-20) mg/dL Creatinine 1.74 H (0.66-1.25) mg/dL Glucose 122 H (74-99) mg/dL POC Glucose (mg/dL) 128 H 142 H (70-110) mg/dL Calcium 7.6 L (8.4-10.2) mg/dL 01/27/23 01/28/23 Range/Units 20:34 06:53 BUN 52 H (9-20) mg/dL Creatinine 1.90 H (0.66-1.25) mg/dL Glucose (74-99) mg/dL POC Glucose (mg/dL) 136 H (70-110) mg/dL Calcium 7.7 L (8.4-10.2) mg/dL Microbiology - Last 24 Hours (Table) 01/25/23 10:25 Blood Culture - Preliminary Blood Assessment and Plan Plan: Assessment: 1. Acute kidney injury secondary to vasomotor nephropathy secondary to diuresis. Renal function improved. Creatinine 2.95 on admission and stable at 1.9 today. No hydronephrosis noted on kidney ultrasound. 2. Chronic kidney disease stage IV with baseline creatinine 1.7-1.8 from November 2022 secondary to nephrosclerosis/diabetic kidney disease. 3. Chronic systolic CHF with ejection fraction of 20-25%. 4. Chronic urinary retention with hydronephrosis. Urology following. Has Edwards catheter. On Flomax. 5. Enterococcus UTI on antibiotics. 6. Hypokalemia from poor intake. Replaced. Plan: Encouraged oral intake. Farxiga held due to UTI. Maintain low-dose Lasix with potassium supplementation. Follow-up outpatient in 1 week post discharge. Repeat BMP and magnesium level 2-3 days post discharge. Advised patient to maintain low salt diet and fluid restriction of less than 50 ounces per day upon discharge. He was also advised to monitor his weight closely at home and to notify physician if develops edema or gains more than 3 pounds in 1 week duration. Voiding trial today.
[2023-01-28] MEDS ORDERED: POTASSIUM CHLORIDE ER 10 MEQ TAB.ER.PRT PO SCH (10:45)
[2023-01-28 12:04] LABS: Glucose,Whole Blood 225 mg/dL (70-110)
[2023-01-28] MEDS: AMPICILLIN-SULBACTAM 3 GM in SODIUM CHLORIDE 0.9% 100 ML IVPB SCH (12:34)
[2023-01-28 13:08] VITALS: BMI 18.3
[2023-01-28 16:09] LABS: Glucose,Whole Blood 168 mg/dL (70-110)
[2023-01-28 17:51] VITALS: BP 128/70; PULSE 57
--- NOTE | 2023-02-03 15:49 | P.PN ---
Subjective Progress Note Date: 01/28/23 Principal diagnosis: Reason for follow up is enterococus UTI Patient is a 87-year-old male with a past medical history significant for hypertension presenting to the hospital 4 days ago for evaluation of decreased appetite and abnormal labs patient did have a positive UA along with urinary symptoms concerning for symptomatic urinary infection and urine has been finalized with Enterococcus faecalis. On today's evaluation that is 01/28/2023 patient continues to be afebrile, the patient is breathing comfortably on room air , the patient denies any chest pain occasional cough no nausea no current abdominal pain and no diarrhea has been reported Patient did have a white count of 13.1 as of 01/25/2023 creatinine is 1.90 Objective - Vital Signs Vital signs: Vital Signs Temp 98.1 F 01/27/23 20:32 Pulse 81 01/28/23 10:04 Resp 16 01/28/23 10:04 BP 140/71 01/28/23 09:45 Pulse Ox 94 L 01/28/23 09:45 FiO2 Intake & Output 01/27/23 01/28/23 01/28/23 18:59 06:59 18:59 Intake Total 1600 120 Output Total 2500 475 Balance 1600 -2500 -355 Intake: Intake, IV Titration 100 Amount Ampicillin-Sulbactam 3 gm 100 In Sodium Chloride 0.9% 100 ml @ 200 mls/hr IVPB Q12H [facility] Rx#:[id number] Oral 1500 120 Output: Urine 2500 475 Uretheral (Edwards) 475 Other: Voiding Method Indwelling Catheter Indwelling Catheter Urinal - Exam GENERAL DESCRIPTION: Elderly male lying in bed in no distress RESPIRATORY SYSTEM: Unlabored breathing , decreased breath sounds at bases HEART: S1 S2 regular rate and rhythm ABDOMEN: Soft , no tenderness EXTREMITIES: No edema feet - Labs CBC & Chem 7: 01/25/23 07:14 01/28/23 06:53 Labs: Abnormal Lab Results - Last 24 Hours (Table) 01/27/23 01/27/23 01/27/23 Range/Units 09:43 11:49 16:27 BUN 52 H (9-20) mg/dL Creatinine 1.74 H (0.66-1.25) mg/dL Glucose 122 H (74-99) mg/dL POC Glucose (mg/dL) 128 H 142 H (70-110) mg/dL Calcium 7.6 L (8.4-10.2) mg/dL 01/27/23 01/28/23 Range/Units 20:34 06:53 BUN 52 H (9-20) mg/dL Creatinine 1.90 H (0.66-1.25) mg/dL Glucose (74-99) mg/dL POC Glucose (mg/dL) 136 H (70-110) mg/dL Calcium 7.7 L (8.4-10.2) mg/dL Microbiology - Last 24 Hours (Table) 01/25/23 10:25 Blood Culture - Preliminary Blood Assessment and Plan (1) Leukocytosis Status: Acute Code(s): D72.829 - ELEVATED WHITE BLOOD CELL COUNT, UNSPECIFIED SNOMED Code(s): 821054639 (2) UTI (urinary tract infection) Status: Acute Code(s): N39.0 - URINARY TRACT INFECTION, SITE NOT SPECIFIED SNOMED Code(s): 42307936 Plan: 1patient with Enterococcus faecalis urinary tract infection in this patient presented to hospital with weakness nausea vomiting decreased appetite did have elevated BUN and creatinine on admission, however need to rule out obstructive uropathy and a complicated urinary tract infection 2ultrasound of the kidney bladder area did not show any hydronephrosis. 3patient has shown clinical improvement with Unasyn , plan to finish therapy with oral Augmentin, discussed with the admitting team working on discharge Dictation was produced using [employer] dictation software. please excuse any grammatical, word or spelling errors.
== END 2023-01-28 19:01 | disposition home health service (06) | DRG 698 ==
LOC: EC 18:32 → 3SCARD 21:48 → 1SOBS 01-22 08:23 → 3SCARD 01-22 12:14
PROVIDERS: ADMIT Hospitalist; ATTEND Hospitalist
DX: T83.518A Infection and inflammatory reaction due to other urinary catheter, initial encounter (principal); N17.0 Acute kidney failure with tubular necrosis; I13.0 Hypertensive heart and chronic kidney disease with heart failure and stage 1 through stage 4 chronic kidney disease, or unspecified chronic kidney disease; I42.9 Cardiomyopathy, unspecified; I50.42 Chronic combined systolic (congestive) and diastolic (congestive) heart failure; N18.4 Chronic kidney disease, stage 4 (severe); N13.6 Pyonephrosis; E46 Unspecified protein-calorie malnutrition; Z68.1 Body mass index [BMI] 19.9 or less, adult; T50.2X5A Adverse effect of carbonic-anhydrase inhibitors, benzothiadiazides and other diuretics, initial encounter; B95.2 Enterococcus as the cause of diseases classified elsewhere; E11.22 Type 2 diabetes mellitus with diabetic chronic kidney disease; R79.89 Other specified abnormal findings of blood chemistry; E87.6 Hypokalemia; F41.9 Anxiety disorder, unspecified; I08.0 Rheumatic disorders of both mitral and aortic valves; I25.10 Atherosclerotic heart disease of native coronary artery without angina pectoris; N32.0 Bladder-neck obstruction; Y84.6 Urinary catheterization as the cause of abnormal reaction of the patient, or of later complication, without mention of misadventure at the time of the procedure; Z71.3 Dietary counseling and surveillance; Z79.82 Long term (current) use of aspirin; Z79.84 Long term (current) use of oral hypoglycemic drugs; Z79.899 Other long term (current) drug therapy; Z28.310 Unvaccinated for COVID-19
CPT/HCPCS: 36415; 71045; 71046; 76770; 80048; 80053; 81001; 83036; 83735; 83880; 84484; 85025; 85027; 85610; 85730; 87040; 87077; 87086; 87186; 93005; 96361; 96374; 99285

== ENCOUNTER 2023-05-18 08:42 | Inpatient (IN) | payer MEDICARE ==
--- NOTE | 2023-05-18 08:55 | ED ---
Male Urogenital HPI - General Chief complaint: Urogenital Stated complaint: Blood in Urine Time Seen by Provider: 05/18/23 08:43 Source: patient, family, EMS, RN notes reviewed Mode of arrival: EMS Limitations: no limitations - History of Present Illness Initial comments: This is an 87-year-old male who presents to the emergency department for hematuria. Patient is not a great historian. He has an indwelling Edwards catheter, and states that he has not had it changed in a couple of months. He has had blood in his urine for the last couple of days, however this morning, his daughter noticed much more blood, prompting her to call EMS. Patient repor ts abdominal pain and back pain. Edwards catheter does not appear to be draining. Denies any nausea or vomiting. Unsure if he is taking blood thinners. - Related Data Home Medications Medication Instructions Recorded Confirmed Aspirin 81 mg PO DAILY 01/21/23 05/18/23 Metoprolol Succinate [Metoprolol 12.5 mg PO DAILY 01/21/23 05/18/23 Succinate ER] Tamsulosin [Flomax] 0.4 mg PO HS 01/21/23 05/18/23 Furosemide [Lasix] 20 mg PO BID 05/18/23 05/18/23 Allergies Allergy/AdvReac Type Severity Reaction Status Date / Time No Known Allergies Allergy Verified 05/18/23 11:18 Review of Systems ROS Statement: Those systems with pertinent positive or pertinent negative responses have been documented in the HPI. ROS Other: All systems not noted in ROS Statement are negative. Past Medical History Past Medical History: Hypertension Additional Past Medical History / Comment(s): pt states that he hasn't been to a PCP in 10 years History of Any Multi-Drug Resistant Organisms: None Reported Past Surgical History: No Surgical Hx Reported Past Anesthesia/Blood Transfusion Reactions: No Reported Reaction, Unable to Obtain Additional Past Anesthesia/Blood Transfusion Reaction / Comment(s): pt has never had a blood transfusion Past Psychological History: Anxiety Smoking Status: Never smoker Past Alcohol Use History: Rare Past Drug Use History: None Reported - Past Family History Father Family Medical History: Dementia Mother Family Medical History: Cancer General Exam Limitations: no limitations General appearance: alert, in no apparent distress Head exam: Present: atraumatic, normocephalic, normal inspection Respiratory exam: Present: normal lung sounds bilaterally. Absent: respiratory distress, wheezes, rales, rhonchi, stridor Cardiovascular Exam: Present: regular rate, normal rhythm, normal heart sounds. Absent: systolic murmur, diastolic murmur, rubs, gallop, clicks GI/Abdominal exam: Present: distended, tenderness Neurological exam: Present: alert, oriented X3, CN II-XII intact Psychiatric exam: Present: normal affect, normal mood Skin exam: Present: warm, dry, intact, normal color. Absent: rash Course Vital Signs 05/18/23 05/18/23 05/18/23 08:51 09:00 10:00 Temperature 98.1 F Pulse Rate 98 98 84 Respiratory 18 18 18 Rate Blood Pressure 177/106 177/106 146/81 O2 Sat by Pulse 99 98 Oximetry 05/18/23 05/18/23 10:30 11:00 Temperature Pulse Rate 90 89 Respiratory 18 18 Rate Blood Pressure 139/80 151/82 O2 Sat by Pulse Oximetry Medical Decision Making - Medical Decision Making This is an 87 year old male who presents to the emergency department for hematuria. Was pt. sent in by a medical professional or institution? @ -No Did you speak to anyone other than the patient for history? @ -No Did you review nursing and triage notes? @ -Yes, and I agree, it is accurate with regards to the patient's symptoms. Were old charts reviewed? @ -No Differential Diagnosis? @ -Differential Hematuria: UTI, pyelonephritis, injury, coagulopathy, this is not meant to be an all- inclusive list. EKG interpreted by me (3pts min.)? @ -Not obtained X-rays interpreted by me (1pt min.)? @ -Not obtained CT interpreted by me (1pt min.)? @ -Not obtained U/S interpreted by me (1pt. min.)? @ -Not obtained What testing was considered but not performed? (CT, X-rays, U/S, labs)? Why? @ -None What meds were considered but not given? Why? @ -None Did you discuss the management of the patient with other professionals? @ -Yes, Dr. Singh, who accepts the patient for admission. Did you reconcile home meds? @ -No Was smoking cessation discussed for >3mins.? @ -No Was critical care preformed (if so, how long)? @ -No Were there social determinants of health that impacted care today? How? (Marlon elessness, low income, unemployed, alcoholism, drug addiction, transportation, low edu. Level, literacy, decrease access to med. care, alf, rehab)? @ -No Was there de-escalation of care discussed even if they declined? (Discuss DNR or withdrawal of care, Hospice)? @ -No What co-morbidities impacted this encounter? (DM, HTN, Smoking, COPD, CAD, C ancer, CVA, Hep., AIDS, mental health diagnosis, sleep apnea, morbid obesity)? @ -CKD, CHF, DM Was patient admitted / discharged? @ -Admitted. On arrival, patient's abdomen was distended and he had no drainage from the Edwards catheter. Bladder scan demonstrated greater than 1000 mL of urine. Edwards catheter was removed and replaced with a new one. Afterwards he had an output of >1500 mL of urine with improvement in symptoms. Urinalysis suggestive of infection. Lab work demonstrates hyponatremia with a sodium of 127. Lactic acid elevated at 2.8. He was given a 500 mL bolus of IV fluids. Given the patient's age and other comorbidities, he was admitted to medicine for further management of Edwards catheter associated UTI and hyponatremia. Urine and blood cultures were obtained and he was given 1g of Ceftriaxone. Consult placed for urology. Undiagnosed new problem with uncertain prognosis? @ -None Drug Therapy requiring intensive monitoring for toxicity (Heparin, Nitro, Insulin, Cardizem)? @ -None Were any procedures done? @ -None Diagnosis/symptom? @ -UTI, hematuria, hyponatremia Acute, or Chronic, or Acute on Chronic? @ -Acute Uncomplicated (without systemic symptoms) or Complicated (systemic symptoms)? @ -Complicated Side effects of treatment? @ -None Exacerbation, Progression, or Severe Exacerbation] @ -Not applicable Poses a threat to life or bodily function? @ -Yes This case was discussed in detail with the attending ED physician, Dr. Fernandez. Presentation, findings, and treatment plan discussed in detail as well. - Lab Data Result diagrams: 05/18/23 09:13 05/18/23 09:13 Lab Results 05/18/23 05/18/23 05/18/23 Range/Units 09:13 09:13 09:13 WBC 9.9 (3.8-10.6) k/uL RBC 4.68 (4.30-5.90) m/uL Hgb 14.3 (13.0-17.5) gm/dL Hct 44.0 (39.0-53.0) % MCV 93.9 (80.0-100.0) fL MCH 30.5 (25.0-35.0) pg MCHC 32.5 (31.0-37.0) g/dL RDW 12.9 (11.5-15.5) % Plt Count 214 (150-450) k/uL MPV 7.5 Neutrophils % 82 % Lymphocytes % 9 % Monocytes % 7 % Eosinophils % 1 % Basophils % 0 % Neutrophils # 8.1 H (1.3-7.7) k/uL Lymphocytes # 0.9 L (1.0-4.8) k/uL Monocytes # 0.7 (0-1.0) k/uL Eosinophils # 0.1 (0-0.7) k/uL Basophils # 0.0 (0-0.2) k/uL Sodium 127 L (137-145) mmol/L Potassium 4.2 (3.5-5.1) mmol/L Chloride 95 L (98-107) mmol/L Carbon Dioxide 19 L (22-30) mmol/L Anion Gap 13 mmol/L BUN 49 H (9-20) mg/dL Creatinine 2.12 H (0.66-1.25) mg/dL Est GFR (CKD-EPI)AfAm 32 (>60 ml/min/1.73 sqM) Est GFR (CKD-EPI)NonAf 27 (>60 ml/min/1.73 sqM) Glucose 189 H (74-99) mg/dL Lactic Ac Sepsis Rflx Plasma Lactic Acid Jose (0.7-2.0) mmol/L Calcium 9.4 (8.4-10.2) mg/dL Total Bilirubin 0.8 (0.2-1.3) mg/dL AST 39 (17-59) U/L ALT 28 (4-49) U/L Alkaline Phosphatase 96 (38-126) U/L Total Protein 6.9 (6.3-8.2) g/dL Albumin 4.1 (3.5-5.0) g/dL Urine Color Yellow Urine Appearance Turbid (Clear) Urine pH 6.0 (5.0-8.0) Ur Specific [place] 1.010 (1.001-1.035) Urine Protein 2+ H (Negative) Urine Glucose (UA) Negative (Negative) Urine Ketones Negative (Negative) Urine Blood Large H (Negative) Urine Nitrite Negative (Negative) Urine Bilirubin Negative (Negative) Urine Urobilinogen <2.0 (<2.0) mg/dL Ur Leukocyte Esterase Large H (Negative) Urine RBC >182 H (0-5) /hpf Urine WBC >182 H (0-5) /hpf Urine WBC Clumps Many H (None) /hpf 05/18/23 05/18/23 Range/Units 09:13 09:44 WBC (3.8-10.6) k/uL RBC (4.30-5.90) m/uL Hgb (13.0-17.5) gm/dL Hct (39.0-53.0) % MCV (80.0-100.0) fL MCH (25.0-35.0) pg MCHC (31.0-37.0) g/dL RDW (11.5-15.5) % Plt Count (150-450) k/uL MPV Neutrophils % % Lymphocytes % % Monocytes % % Eosinophils % % Basophils % % Neutrophils # (1.3-7.7) k/uL Lymphocytes # (1.0-4.8) k/uL Monocytes # (0-1.0) k/uL Eosinophils # (0-0.7) k/uL Basophils # (0-0.2) k/uL Sodium (137-145) mmol/L Potassium (3.5-5.1) mmol/L Chloride (98-107) mmol/L Carbon Dioxide (22-30) mmol/L Anion Gap mmol/L BUN (9-20) mg/dL Creatinine (0.66-1.25) mg/dL Est GFR (CKD-EPI)AfAm (>60 ml/min/1.73 sqM) Est GFR (CKD-EPI)NonAf (>60 ml/min/1.73 sqM) Glucose (74-99) mg/dL Lactic Ac Sepsis Rflx Y Plasma Lactic Acid Jose 2.8 H* (0.7-2.0) mmol/L Calcium (8.4-10.2) mg/dL Total Bilirubin (0.2-1.3) mg/dL AST (17-59) U/L ALT (4-49) U/L Alkaline Phosphatase (38-126) U/L Total Protein (6.3-8.2) g/dL Albumin (3.5-5.0) g/dL Urine Color Urine Appearance (Clear) Urine pH (5.0-8.0) Ur Specific [place] (1.001-1.035) Urine Protein (Negative) Urine Glucose (UA) (Negative) Urine Ketones (Negative) Urine Blood (Negative) Urine Nitrite (Negative) Urine Bilirubin (Negative) Urine Urobilinogen (<2.0) mg/dL Ur Leukocyte Esterase (Negative) Urine RBC (0-5) /hpf Urine WBC (0-5) /hpf Urine WBC Clumps (None) /hpf Disposition Clinical Impression: Hyponatremia, UTI (urinary tract infection) due to urinary indwelling Edwards catheter, Hematuria Disposition: ADMITTED IP TO THIS HOSP
[2023-05-18 09:24] LABS: Basophils % (A) 0 %; Eosinophils # (A) 0.1 k/uL (0-0.7); Eosinophils % (A) 1 %; HGB 14.3 gm/dL (13.0-17.5); Lymphocytes # (A) 0.9 k/uL (1.0-4.8); Lymphocytes % (A) 9 %; MCH 30.5 pg (25.0-35.0); MCHC 32.5 g/dL (31.0-37.0); MCV 93.9 fL (80.0-100.0); Mean Platelet Volume 7.5; Monocytes # (A) 0.7 k/uL (0-1.0); Monocytes % (A) 7 %; Neutrophils # (A) 8.1 k/uL (1.3-7.7); Neutrophils % (A) 82 %; Platelet Count 214 k/uL (150-450); RBC 4.68 m/uL (4.30-5.90); RDW 12.9 % (11.5-15.5); WBC 9.9 k/uL (3.8-10.6)
[2023-05-18 09:36] LABS: ALT 28 U/L (4-49); AST 39 U/L (17-59); African American GFR (CKD) 32 (>60 ml/min/1.73 sqM); Albumin 4.1 g/dL (3.5-5.0); Alkaline Phosphatase 96 U/L (38-126); Anion Gap 13 mmol/L; Blood Urea Nitrogen 49 mg/dL (9-20); Calcium 9.4 mg/dL (8.4-10.2); Carbon Dioxide 19 mmol/L (22-30); Chloride 95 mmol/L (98-107); Glucose 189 mg/dL (74-99); Non-African American GFR(CKD) 27 (>60 ml/min/1.73 sqM); Potassium 4.2 mmol/L (3.5-5.1); Sodium 127 mmol/L (137-145); Total Bilirubin 0.8 mg/dL (0.2-1.3); Total Protein 6.9 g/dL (6.3-8.2)
[2023-05-18] MEDS: SODIUM CHLORIDE 0.9% 500 ML 500 ML IV STA (10:14)
[2023-05-18 10:21] LABS: Appearance,Urine Turbid (Clear); Bilirubin,Urine Negative (Negative); Blood,Urine Large (Negative); Color,Urine Yellow; Glucose,Urine (UA) Negative (Negative); Ketones,Urine Negative (Negative); Leukocyte Esterase,Urine Large (Negative); Nitrite,Urine Negative (Negative); Protein,Urine 2+ (Negative); RBC,Urine >182 /hpf (0-5); Urobilinogen,Urine <2.0 mg/dL (<2.0); WBC,Urine >182 /hpf (0-5)
[2023-05-18] MEDS ORDERED: NALOXONE 0.4 MG/ML 1 ML VIAL IV PRN (11:05)
[2023-05-18] MEDS ORDERED: ACETAMINOPHEN TAB 325 MG TAB PO PRN (11:05)
[2023-05-18] MEDS ORDERED: HYDROcodone/APAP 5-325MG 1 EACH TAB PO PRN (11:05)
[2023-05-18] MEDS ORDERED: ONDANSETRON 4 MG/2 ML VIAL IVP PRN (11:05)
[2023-05-18] MEDS: cefTRIAXone IN SWFI 1,000 MG/10 ML SYRINGE IVP STA (11:16)
--- NOTE | 2023-05-18 13:39 | CT ---
EXAMINATION TYPE: CT brain wo con DATE OF EXAM: 05/18/2023 COMPARISON: INDICATION: dementia DLP: 1130.4 mGycm, Automated exposure control for dose reduction was used. CONTRAST: None CT of the brain is performed utilizing 3 mm thick sections through the posterior fossa and 3 mm thick sections through the remaining calvarium. Study is performed within 24 hours of arrival to the hosp ital. No abnormal hyperdensity is present to suggest an acute intracranial hemorrhage. No mass lesion is evident. No acute infarcts are evident. Confluent periventricular white matter hypodensity is present, likely on the basis of chronic white matter ischemic changes. Ventricles and sulci are prominent for the patient age. Paranasal sinuses and mastoid air cells within the [id number] are clear. IMPRESSION: 1. Atrophy with confluent chronic appearing periventricular white matter ischemic type changes.
--- NOTE | 2023-05-18 13:48 | XR ---
EXAMINATION TYPE: XR chest 1V portable DATE OF EXAM: 05/18/2023 COMPARISON: 01/27/2023 INDICATION: CHF TECHNIQUE: Single frontal view of the chest is obtained. FINDINGS: The heart size is normal. The pulmonary vasculature is normal. The lungs are clear. IMPRESSION: 1. No acute pulmonary process.
[2023-05-18] MEDS: FUROSEMIDE 20 MG TAB PO SCH (15:27)
[2023-05-18 18:46] LABS: Basophils % (A) 0 %; Eosinophils # (A) 0.1 k/uL (0-0.7); Eosinophils % (A) 1 %; HCT 40.2 % (39.0-53.0); HGB 13.5 gm/dL (13.0-17.5); Lymphocytes # (A) 1.6 k/uL (1.0-4.8); Lymphocytes % (A) 18 %; MCH 31.2 pg (25.0-35.0); MCHC 33.4 g/dL (31.0-37.0); MCV 93.3 fL (80.0-100.0); Mean Platelet Volume 7.5; Monocytes # (A) 0.7 k/uL (0-1.0); Monocytes % (A) 7 %; Neutrophils # (A) 6.8 k/uL (1.3-7.7); Neutrophils % (A) 73 %; Platelet Count 227 k/uL (150-450); RBC 4.31 m/uL (4.30-5.90); RDW 12.7 % (11.5-15.5); WBC 9.3 k/uL (3.8-10.6)
[2023-05-18] MEDS: TAMSULOSIN 0.4 MG CAP.ER.24H PO SCH (20:48)
[2023-05-18] MEDS: HEPARIN SODIUM,PORCINE 5,000 UNIT/ML 1 ML VIAL SQ SCH (20:48)
--- NOTE | 2023-05-18 21:47 | HP ---
HISTORY AND PHYSICAL CHIEF COMPLAINT: Blood in the urine. HISTORY OF PRESENT ILLNESS: This is an 87-year-old gentleman with a past medical history of multiple medical problems including hypertension, had an indwelling Edwards catheter. The patient was admitted for hematuria. The catheter has not been changed a couple of months. The patient had hematuria for a few days and the patient also complained of abdominal pain and back pain. The patient is confused at this time. The patient had renal failure, acute on chronic. Lactic acid 2.8. Possibility of UTI is being considered. The patient is also hyponatremic. PAST MEDICAL HISTORY: Hypertension. Rest of the history and rest of the chart is reviewed. REVIEW OF SYSTEMS: Could not be taken, the patient is confused. CURRENT MEDICATIONS: Reviewed include Cathay 5 mg. HOME MEDICATIONS: Reviewed include Flomax. PHYSICAL EXAMINATION: VITAL SIGNS: Pulse is 90, blood pressure 113/80, respirations 18. HEENT: Conjunctivae normal. Oral mucosa dry. NECK: No JVD. CARDIOVASCULAR: S1, S2. RESPIRATIONS: A few scattered rhonchi and crackles. ABDOMEN: Soft, nontender. LEGS: No edema. NERVOUS SYSTEM: Diffusely weak. Some contractures also present. SKIN: No ulcer, or rash. Bleeding around the Edwards catheter site present. LABORATORY DATA: Creatinine is 2.12. ASSESSMENT: 1. Possible acute urinary tract infection. 2. Hematuria. 3. Chronic urinary retention, Edwards catheter. 4. Acute on chronic renal failure. 5. Hyponatremia. 6. Change in mental status, metabolic acidosis. 7. Hypertension. RECOMMENDATIONS AND DISCUSSION: This is an 87-year-old gentleman, who presented with multiple complex medical issues, we will monitor the patient closely. I recommend empiric antibiotics and Urology consultation. Resume the home medications. DVT prophylaxis. I would also recommend baseline chest x-ray and CT scan of the brain also. Prognosis guarded. Further recommendations to follow. See orders for further details. This patient requires more than 2 nights copiously for evaluation and treatment of the above-mentioned multiple medical problems with elderly patient with high chance of complications. MMODL / IJN: [id number] /
[2023-05-19] MEDS: PANTOPRAZOLE 40 MG TABLET PO SCH (05:30)
[2023-05-19] MEDS: METOPROLOL SUCCINATE (ER) 25 MG TAB.ER.24H PO SCH (08:58)
[2023-05-19 09:37] LABS: Basophils # (A) 0.02 X 10*3/uL (0.00-0.10); Basophils % (A) 0.2 %; Eosinophils # (A) 0.09 X 10*3/uL (0.04-0.35); Eosinophils % (A) 0.9 %; HCT 37.8 % (39.6-50.0); HGB 12.5 g/dL (13.0-17.0); Lymphocytes # (A) 1.92 X 10*3/uL (0.90-5.00); Lymphocytes % (A) 19.7 %; MCH 30.6 pg (27.0-32.0); MCHC 33.1 g/dL (32.0-37.0); MCV 92.6 FL (80.0-97.0); Mean Platelet Volume 9.9 FL (9.5-12.2); Monocytes % (A) 9.2 %; NRBC Per 100 WBC 0 X 10*3/uL (0.00-0.01); Neutrophils # (A) 6.81 X 10*3/uL (1.80-7.70); Neutrophils % (A) 69.7 %; Platelet Count 224 X 10*3/uL (140-440); RBC 4.08 X 10*6/uL (4.40-5.60); RDW 12.5 % (11.5-14.5); WBC 9.77 X 10*3/uL (4.50-10.00)
[2023-05-19 09:43] LABS: BUN/Creat Ratio 22.09 Ratio (12.00-20.00); Blood Urea Nitrogen 48.6 mg/dL (9.0-27.0); Calcium 8.9 mg/dL (8.7-10.3); Carbon Dioxide 26.8 mmol/L (21.6-31.8); Chloride 101 mmol/L (96-109); Glucose 103 mg/dL (70-110); Potassium 4.1 mmol/L (3.5-5.5); Sodium 139 mmol/L (135-145)
--- NOTE | 2023-05-19 15:32 | P.GSCN ---
History of Present Illness Consult date: 05/19/23 Reason for Consult: Urinary Retention, Hematuria Requesting physician: Koko Singh History of present illness: The patient is an 87-year-old gentleman known to Dr. Elder. He was initially seen during an admission in late November 2022 for bilateral hydronephrosis due to urinary retention. He was again seen by urology during a hospitalization in January 2023. Is unclear whether or not he has been seen in the office. He had been advised to undergo urodynamic testing and cystoscopy for further evaluation. He presented to the ER yesterday because he developed hematuria and the catheter was not draining. He is a vague historian but it appeared that the Edwards catheter had not been changed in 2 to 3 months. It was changed yesterday, but the hematuria has persisted. I am consulted for this reason. Review of Systems - Gastrointestinal Reports abdominal pain Past Medical History Past Medical History: Hypertension Additional Past Medical History / Comment(s): pt states that he hasn't been to a PCP in 10 years History of Any Multi-Drug Resistant Organisms: None Reported Past Surgical History: No Surgical Hx Reported Past Anesthesia/Blood Transfusion Reactions: No Reported Reaction, Unable to Obtain Additional Past Anesthesia/Blood Transfusion Reaction / Comm: pt has never had a blood transfusion Past Psychological History: Anxiety Smoking Status: Never smoker Past Alcohol Use History: Rare Past Drug Use History: None Reported - Past Family History Father Family Medical History: Dementia Mother Family Medical History: Cancer Medications and Allergies Home Medications Medication Instructions Recorded Confirmed Type Aspirin 81 mg PO DAILY 01/21/23 05/18/23 History Metoprolol Succinate [Metoprolol 12.5 mg PO DAILY 01/21/23 05/18/23 History Succinate ER] Tamsulosin [Flomax] 0.4 mg PO HS 01/21/23 05/18/23 History Furosemide [Lasix] 20 mg PO BID 05/18/23 05/18/23 History Allergies Allergy/AdvReac Type Severity Reaction Status Date / Time No Known Allergies Allergy Verified 05/18/23 11:18 Surgical - Exam Vital Signs Temp Pulse Resp BP Pulse Ox 98.1 F 98 18 177/106 99 05/18/23 08:51 05/18/23 08:51 05/18/23 08:51 05/18/23 08:51 05/18/23 08:51 - General well developed, no distress - Respiratory normal respiratory effort - Abdomen Soft, non-tender, no mass. Possible suprapubic distention. - Genitourinary normal penis with no external lesions, testicles non-tender Results - Labs 05/19/23 07:03 05/19/23 07:03 Abnormal Lab Results - Last 24 Hours (Table) 05/18/23 05/18/23 05/18/23 Range/Units 09:13 09:13 09:13 Neutrophils # 8.1 H (1.3-7.7) k/uL Lymphocytes # 0.9 L (1.0-4.8) k/uL Sodium 127 L (137-145) mmol/L Chloride 95 L (98-107) mmol/L Carbon Dioxide 19 L (22-30) mmol/L BUN 49 H (9-20) mg/dL Creatinine 2.12 H (0.66-1.25) mg/dL Glucose 189 H (74-99) mg/dL Plasma Lactic Acid Jose (0.7-2.0) mmol/L Urine Protein 2+ H (Negative) Urine Blood Large H (Negative) Ur Leukocyte Esterase Large H (Negative) Urine RBC >182 H (0-5) /hpf Urine WBC >182 H (0-5) /hpf Urine WBC Clumps Many H (None) /hpf 05/18/23 Range/Units 09:13 Neutrophils # (1.3-7.7) k/uL Lymphocytes # (1.0-4.8) k/uL Sodium (137-145) mmol/L Chloride (98-107) mmol/L Carbon Dioxide (22-30) mmol/L BUN (9-20) mg/dL Creatinine (0.66-1.25) mg/dL Glucose (74-99) mg/dL Plasma Lactic Acid Jose 2.8 H* (0.7-2.0) mmol/L Urine Protein (Negative) Urine Blood (Negative) Ur Leukocyte Esterase (Negative) Urine RBC (0-5) /hpf Urine WBC (0-5) /hpf Urine WBC Clumps (None) /hpf Diabetes panel 05/18/23 05/18/23 Range/Units 09:13 09:13 Sodium 127 L (137-145) mmol/L Potassium 4.2 (3.5-5.1) mmol/L Chloride 95 L (98-107) mmol/L Carbon Dioxide 19 L (22-30) mmol/L BUN 49 H (9-20) mg/dL Creatinine 2.12 H (0.66-1.25) mg/dL Glucose 189 H (74-99) mg/dL Hemoglobin A1c 5.6 (<=6.0) % Calcium 9.4 (8.4-10.2) mg/dL AST 39 (17-59) U/L ALT 28 (4-49) U/L Alkaline Phosphatase 96 (38-126) U/L Total Protein 6.9 (6.3-8.2) g/dL Albumin 4.1 (3.5-5.0) g/dL Calcium panel 05/18/23 Range/Units 09:13 Calcium 9.4 (8.4-10.2) mg/dL Albumin 4.1 (3.5-5.0) g/dL Pituitary panel 05/18/23 Range/Units 09:13 Sodium 127 L (137-145) mmol/L Potassium 4.2 (3.5-5.1) mmol/L Chloride 95 L (98-107) mmol/L Carbon Dioxide 19 L (22-30) mmol/L BUN 49 H (9-20) mg/dL Creatinine 2.12 H (0.66-1.25) mg/dL Glucose 189 H (74-99) mg/dL Calcium 9.4 (8.4-10.2) mg/dL Adrenal panel 05/18/23 Range/Units 09:13 Sodium 127 L (137-145) mmol/L Potassium 4.2 (3.5-5.1) mmol/L Chloride 95 L (98-107) mmol/L Carbon Dioxide 19 L (22-30) mmol/L BUN 49 H (9-20) mg/dL Creatinine 2.12 H (0.66-1.25) mg/dL Glucose 189 H (74-99) mg/dL Calcium 9.4 (8.4-10.2) mg/dL Total Bilirubin 0.8 (0.2-1.3) mg/dL AST 39 (17-59) U/L ALT 28 (4-49) U/L Alkaline Phosphatase 96 (38-126) U/L Total Protein 6.9 (6.3-8.2) g/dL Albumin 4.1 (3.5-5.0) g/dL Assessment and Plan (1) Retention of urine, unspecified Current Visit: No Status: Acute Code(s): R33.9 - RETENTION OF URINE, UNSPECIFIED SNOMED Code(s): 687985901 (2) Gross hematuria Current Visit: Yes Status: Acute Code(s): R31.0 - GROSS HEMATURIA SNOMED Code(s): 572642413 Plan: I manually irrigated the Edwards catheter at the bedside. Several small clots were removed, but it was apparent that the catheter was patent and that the bladder was indeed empty. However, the urine draining through the Edwards catheter is dark and may require irrigation as needed. I stressed to the patient the need for him to undergo formal urodynamic testing and cystoscopy in the office. I also stressed to him that a Edwards catheter should not remain in place for over 1 month. Time with Patient: Greater than 30
--- NOTE | 2023-05-20 03:06 | PN ---
PROGRESS NOTE DATE OF SERVICE: 05/19/2023 SUBJECTIVE: This is an 87-year-old gentleman, who was admitted with hematuria, had irrigation by Urology. The patient also had apparent UTI. The patient is on empiric antibiotics. The patient continues to be confused. No chest pain. No palpitation. OBJECTIVE: VITAL SIGNS: Pulse 83, blood pressure 130/53, respirations 16. CHEST: Clear to auscultation. CARDIOVASCULAR: S1, S2. ABDOMEN: Soft. Edwards catheter present draining reddish urine. LABORATORY DATA: Creatinine is 2.2. Cultures done showing gram-negative bacilli. ASSESSMENT: 1. Possible acute urinary tract infection with gram-negative bacilli on admission. 2. Hematuria, on indwelling Edwards catheter and irrigation. 3. Chronic urinary retention, on Edwards catheter. 4. Acute on chronic renal failure. 5. Hyponatremia. 6. Change in mental status, metabolic encephalopathy. 7. Hypertension. 8. Full code. RECOMMENDATIONS AND DISCUSSION: Recommend to continue current management and continue symptomatic treatment, otherwise continue with empiric antibiotics. Follow the cultures. Follow closely with Urology. Guarded prognosis because of multiple complex medical issues. Further recommendations to follow. MMODL / IJN: [id number] /
[2023-05-20 08:44] LABS: Basophils # (A) 0.04 X 10*3/uL (0.00-0.10); Basophils % (A) 0.5 %; Eosinophils # (A) 0.14 X 10*3/uL (0.04-0.35); Eosinophils % (A) 1.9 %; HCT 34.2 % (39.6-50.0); HGB 11.1 g/dL (13.0-17.0); Lymphocytes # (A) 1.67 X 10*3/uL (0.90-5.00); Lymphocytes % (A) 22.6 %; MCHC 32.5 g/dL (32.0-37.0); MCV 95.5 FL (80.0-97.0); Mean Platelet Volume 10.3 FL (9.5-12.2); Monocytes # (A) 0.74 X 10*3/uL (0.20-1.00); NRBC Per 100 WBC 0 X 10*3/uL (0.00-0.01); Neutrophils # (A) 4.76 X 10*3/uL (1.80-7.70); Neutrophils % (A) 64.6 %; Platelet Count 206 X 10*3/uL (140-440); RBC 3.58 X 10*6/uL (4.40-5.60); RDW 12.5 % (11.5-14.5); WBC 7.38 X 10*3/uL (4.50-10.00)
[2023-05-20 08:59] LABS: Blood Urea Nitrogen 43.6 mg/dL (9.0-27.0); Calcium 8.5 mg/dL (8.7-10.3); Chloride 106 mmol/L (96-109); Glucose 101 mg/dL (70-110); Sodium 144 mmol/L (135-145)
--- NOTE | 2023-05-20 12:05 | CDI ---
Documentation Clarification Form Date: 05/20/2023 From: Soha Morrow Admit Date: 05/18/2023 12:48:00 PM Patient Name: Meir Cat Visit Number: [id number] ATTENTION: The Clinical Documentation Specialists (CDI) and [facility] Coding Staff appreciate your assistance in clarifying documentation. Please respond to the clarification below the line at the bottom and electronically sign. The CDI & [facility] Coding staff will review the response and follow-up if needed. Please note: Queries are made part of the Legal Health Record. If you have any questions, please contact the author of this message via ITS. Dr. Koko Singh UTI is documented in the record and patient has a chronic Edwards. Additional clarification regarding the etiology of the UTI is requested. History/Risk Factors: 87yo presented w/ hematuria and urinary retention; the Edwards was not draining. Per the record, the pt indicated that the Edwards had not been exchanged for a few months. Per the ER record, the Edwards was replaced and >1500ml of urine was drained. Clinical Indicators: H&P on 05/17 noted, possible acute urinary tract infection and empiric anitbiotics and urology consult were ordered. IM PN on 05/18 noted, possible acute urinary tract infection with gram-negative bacilli on admission, hematuria, on indwelling Edwards catheter and irrigation Urinalysis 05/17: turbid, yellow urine, 2+ protein, lg blood, lg leuk esterase, >182 RBC, >182 WBC many WBC clumps Urine culture 05/17: gram-neg bacilli Lab results 05/17: WBC 9.9, Na 127, BUN 49, creat 2.12, LA 2.8 Treatment: Edwards exchange, Rocephin IV, IV fluid bolus in ER Please clarify the etiology of the UTI, if known: [ ] Edwards catheter [ ] UTI not related to catheter [ ] UTI ruled out, empiric treatment only [ ] Other condition, please specify [ ] Unable to determine (Template Last Revised: April 2020) UTI not related to catheter MTDD
--- NOTE | 2023-05-20 12:10 | P.PN ---
Subjective Progress Note Date: 05/20/23 No acute overnight event, urine is clear this morning Objective - Vital Signs Vital signs: Vital Signs Temp 97.7 F 05/20/23 08:00 Pulse 67 05/20/23 08:00 Resp 18 05/20/23 08:00 BP 140/66 05/20/23 08:00 Pulse Ox 98 05/20/23 08:00 FiO2 Intake & Output 05/19/23 05/20/23 05/20/23 18:59 06:59 18:59 Intake Total 354 Output Total 1700 1100 Balance -1346 -1100 Intake: Oral 354 Output: Urine 1700 1100 Other: Voiding Method Indwelling Catheter Indwelling Catheter - Constitutional General appearance: Present: no acute distress - Gastrointestinal General gastrointestinal: Present: soft. Absent: distended, tenderness - Labs CBC & Chem 7: 05/20/23 05:48 05/20/23 05:48 Labs: Abnormal Lab Results - Last 24 Hours (Table) 05/19/23 05/19/23 Range/Units 07:03 07:03 RBC 4.08 L (4.40-5.60) X 10*6/uL Hgb 12.5 L (13.0-17.0) g/dL Hct 37.8 L (39.6-50.0) % BUN 48.6 H (9.0-27.0) mg/dL Creatinine 2.2 H (0.6-1.5) mg/dL Est GFR (CKD-EPI) 28 L (>=60) BUN/Creatinine Ratio 22.09 H (12.00-20.00) Ratio Microbiology - Last 24 Hours (Table) 05/18/23 10:45 Blood Culture - Preliminary Blood 05/18/23 10:30 Blood Culture - Preliminary Blood 05/18/23 09:13 Urine Culture - Preliminary Urine,Voided Gram Neg Bacilli Assessment and Plan Assessment: 87 yo male patient of Dr Elder with hx of urinary retention. presented to the hospital with gross hematuria, Catheter was last changed 2-3 months ago. -Okay for discharge from urology standpoint with the Edwards catheter -Follow up as an outpatient with Dr Elder for Cysto/UROD
--- NOTE | 2023-05-21 06:31 | P.PN ---
Subjective Progress Note Date: 05/20/23 This is a pleasant 87-year-old male who was recently admitted with hematuria with chronic indwelling Edwards catheter. Patient evaluated by urology underwent irrigation recommending to continue to irrigate as needed. Patient has had indwelling Edwards catheter and has not removed it or had it replaced in a few months. Patient with concerns of urinary tract infection as urine cultures preliminary showing gram-negative bacilli. Hemoglobin is stable and will monitor closely. Encouraged to increase activity as tolerated Review of systems: Constitutional: No reports of fatigue, fever, or chills Cardiovascular: No reports of chest pain or palpitations Respiratory: No reports of shortness of breath or cough GI: No reports of nausea, no reports of vomiting, no diarrhea : No reports of dysuria or retention, reports continued blood in catheter Neurovascular: reports of generalized weakness All medications have been reviewed PHYSICAL EXAMINATION: GENERAL: The patient is alert and oriented x2, baseline, Well developed, well nourished. Elderly appearing HEENT: Pupils are round and equally reacting to light. EOMI. no scleral icterus. No conjunctival pallor. Normocephalic, atraumatic. No pharyngeal erythema. No thyromegaly. CARDIOVASCULAR: S1 and S2 muffled PULMONARY: diminished breath sounds bilaterally with no wheezing or rhonchi noted. ABDOMEN: soft. Nontender on exam. non-distended, normoactive bowel sounds. No palpable organomegaly. MUSCULOSKELETAL: No joint swelling or deformity. EXTREMITIES: No cyanosis, clubbing, or pedal edema. NEUROLOGICAL: Gross neurological examination did not reveal any focal deficits. Diffuse weakness SKIN: No rashes. Assessment: Acute urinary tract infection with gram-negative bacilli, present on admission secondary to indwelling Edwards catheter Hematuria with chronic indwelling Edwards catheter and irrigation Chronic urinary retention with indwelling Edwards catheter Acute on chronic renal failure, improving Hyponatremia Change in mental status, metabolic encephalopathy likely secondary to urinary tract infection Hypertension GI prophylaxis DVT prophylaxis Full code Plan: Recommend to continue with current medications and management with urology following. Patient is status post exchange of indwelling Edwards catheter and continues with irrigation as needed. Hematuria continues to be noted although slightly improved and recommend to continue irrigating as needed Monitor hemoglobin and transfuse if 7 or less. Hemoglobin today is 11.1 Currently awaiting urine cultures to finalize as preliminary showing gram- negative bacilli. Blood cultures are negative. Continue antibiotics for now and will transition to oral likely on discharge Possible discharge planning in the next 24 hours The impression and plan of care has been dictated by Roxana Ocasio, nurse practitioner as directed. Dr. Francisco MD I have performed a history and examination and MDM of this patient, discussed the same with the dictator, and agree with the dictator's assessment and plan as written ,documented as a scribe. Based on total visit time, I have performed more than 50% of the visit. Any additional findings or plans will be noted. Objective - Vital Signs Vital signs: Vital Signs Temp 97.8 F 05/20/23 14:00 Pulse 40 L 05/20/23 14:00 Resp 18 05/20/23 14:00 BP 170/72 05/20/23 14:00 Pulse Ox 98 05/20/23 14:00 FiO2 Intake & Output 05/19/23 05/20/23 05/20/23 18:59 06:59 18:59 Intake Total 354 240 Output Total 1700 1100 Balance -1346 -1100 240 Intake: Oral 354 240 Output: Urine 1700 1100 Other: Voiding Method Indwelling Catheter Indwelling Catheter Indwelling Catheter - Labs CBC & Chem 7: 05/20/23 05:48 05/20/23 05:48 Labs: Abnormal Lab Results - Last 24 Hours (Table) 05/20/23 05/20/23 Range/Units 05:48 05:48 RBC 3.58 L (4.40-5.60) X 10*6/uL Hgb 11.1 L (13.0-17.0) g/dL Hct 34.2 L (39.6-50.0) % BUN 43.6 H (9.0-27.0) mg/dL Creatinine 2.0 H (0.6-1.5) mg/dL Est GFR (CKD-EPI) 32 L (>=60) BUN/Creatinine Ratio 21.80 H (12.00-20.00) Ratio Calcium 8.5 L (8.7-10.3) mg/dL Microbiology - Last 24 Hours (Table) 05/18/23 09:13 Urine Culture - Final Urine,Voided Citrobacter freundii 05/18/23 10:45 Blood Culture - Preliminary Blood 05/18/23 10:30 Blood Culture - Preliminary Blood
[2023-05-21 08:42] VITALS: TEMP 98.9
[2023-05-21 11:48] LABS: Basophils % (A) 0 %; Eosinophils # (A) 0.1 k/uL (0-0.7); Eosinophils % (A) 1 %; HCT 37.7 % (39.0-53.0); Lymphocytes # (A) 1.5 k/uL (1.0-4.8); Lymphocytes % (A) 19 %; MCH 30.6 pg (25.0-35.0); MCHC 31.7 g/dL (31.0-37.0); MCV 96.4 fL (80.0-100.0); Mean Platelet Volume 7.7; Monocytes # (A) 0.5 k/uL (0-1.0); Monocytes % (A) 6 %; Neutrophils # (A) 5.7 k/uL (1.3-7.7); Neutrophils % (A) 72 %; Platelet Count 205 k/uL (150-450); RBC 3.91 m/uL (4.30-5.90); RDW 12.8 % (11.5-15.5); WBC 7.9 k/uL (3.8-10.6)
[2023-05-21 12:01] LABS: African American GFR (CKD) 42 (>60 ml/min/1.73 sqM); Anion Gap 7 mmol/L; Blood Urea Nitrogen 36 mg/dL (9-20); Calcium 8.2 mg/dL (8.4-10.2); Carbon Dioxide 24 mmol/L (22-30); Chloride 107 mmol/L (98-107); Glucose 120 mg/dL (74-99); Non-African American GFR(CKD) 37 (>60 ml/min/1.73 sqM); Potassium 4.1 mmol/L (3.5-5.1); Sodium 138 mmol/L (137-145)
[2023-05-21 16:29] VITALS: BP 195/83; PULSE 78; RESP 18
== END 2023-05-21 16:08 | disposition home health service (06) | DRG 689 ==
LOC: EC 08:42 → 4SSUR 12:48 → 6NMEDSUR 19:38
PROVIDERS: ADMIT Hospitalist; ATTEND Hospitalist
PROC: 3C1ZX8Z Irrigation of Indwelling Device using Irrigating Substance, External Approach (ICD-10-PCS; principal; 2023-05-19)
DX: N39.0 Urinary tract infection, site not specified (principal); G93.41 Metabolic encephalopathy; E87.1 Hypo-osmolality and hyponatremia; N17.9 Acute kidney failure, unspecified; E87.20 Acidosis, unspecified; B96.89 Other specified bacterial agents as the cause of diseases classified elsewhere; R33.9 Retention of urine, unspecified; F41.9 Anxiety disorder, unspecified; I12.9 Hypertensive chronic kidney disease with stage 1 through stage 4 chronic kidney disease, or unspecified chronic kidney disease; R31.0 Gross hematuria; N18.9 Chronic kidney disease, unspecified; Z79.82 Long term (current) use of aspirin; Z79.899 Other long term (current) drug therapy
CPT/HCPCS: 36415; 70450; 71045; 80048; 80053; 81001; 83036; 83605; 85025; 87040; 87077; 87086; 87186; 96361; 96374; 99285

== ENCOUNTER 2023-11-18 08:07 | Emergency (ER) | payer MEDICARE ==
[2023-11-18 08:51] LABS: Basophils % (A) 0 %; Eosinophils # (A) 0.1 k/uL (0-0.7); Eosinophils % (A) 1 %; HCT 44.1 % (39.0-53.0); HGB 14.2 gm/dL (13.0-17.5); Lymphocytes # (A) 0.7 k/uL (1.0-4.8); Lymphocytes % (A) 6 %; MCH 29.5 pg (25.0-35.0); MCHC 32.2 g/dL (31.0-37.0); MCV 91.6 fL (80.0-100.0); Mean Platelet Volume 7.4; Monocytes # (A) 0.5 k/uL (0-1.0); Monocytes % (A) 4 %; Neutrophils # (A) 11.1 k/uL (1.3-7.7); Neutrophils % (A) 89 %; Platelet Count 238 k/uL (150-450); RBC 4.81 m/uL (4.30-5.90); RDW 13.5 % (11.5-15.5); WBC 12.5 k/uL (3.8-10.6)
--- NOTE | 2023-11-18 08:51 | ED ---
Male Urogenital HPI - General Chief complaint: Urogenital Stated complaint: Urogenital Time Seen by Provider: 11/18/23 08:08 Source: patient, EMS, RN notes reviewed Mode of arrival: EMS - History of Present Illness Initial comments: This is an 88-year-old male presenting for lower abdominal pain for 2 days. Patient endorses history of Edwards catheter use, denies history of CKD or dialysis. States Edwards was last changed about 4 months ago. Patient endorses increased urinary frequency and decreased urinary output, denies dysuria or hematuria. Patient states he ate a large meal yesterday with subsequent constipation and a small amount of yellow, watery diarrhea. Denies hematochezia or coffee ground colored stool. Patient denies fevers chills, dizziness or mid back pain. Patient endorses living alone with who has dementia with occasional care from adult daughter. Denies other supportive medical care from home. Onset/Timin -: days(s) Location: abdomen (Hypogastric region) Radiation: none - Related Data Home Medications Medication Instructions Recorded Confirmed Aspirin 81 mg PO DAILY 01/21/23 05/18/23 Metoprolol Succinate [Metoprolol 12.5 mg PO DAILY 01/21/23 05/18/23 Succinate ER] Tamsulosin [Flomax] 0.4 mg PO HS 01/21/23 05/18/23 Furosemide [Lasix] 20 mg PO BID 05/18/23 05/18/23 Previous Rx's Medication Instructions Recorded Acetaminophen Tab [Tylenol] 650 mg PO Q6HR PRN tab 05/21/23 cefUROXime axetiL [Ceftin] 500 mg PO BID 3 Days #6 tab 05/21/23 Cephalexin [Keflex] 500 mg PO Q6HR 10 Days #40 cap 11/18/23 Allergies Allergy/AdvReac Type Severity Reaction Status Date / Time No Known Allergies Allergy Verified 11/18/23 10:04 Review of Systems ROS Statement: Those systems with pertinent positive or pertinent negative responses have been documented in the HPI. ROS Other: All systems not noted in ROS Statement are negative. Past Medical History Past Medical History: Hypertension Additional Past Medical History / Comment(s): pt states that he hasn't been to a PCP in 10 years History of Any Multi-Drug Resistant Organisms: None Reported Past Surgical History: No Surgical Hx Reported Past Anesthesia/Blood Transfusion Reactions: No Reported Reaction, Unable to Obtain Additional Past Anesthesia/Blood Transfusion Reaction / Comment(s): pt has never had a blood transfusion Past Psychological History: Anxiety Smoking Status: Never smoker Past Alcohol Use History: Rare Past Drug Use History: None Reported - Past Family History Father Family Medical History: Dementia Mother Family Medical History: Cancer General Exam General appearance: alert, in no apparent distress Head exam: Present: atraumatic, normocephalic, normal inspection Eye exam: Present: normal appearance, PERRL, EOMI. Absent: scleral icterus, conjunctival injection, periorbital swelling ENT exam: Present: normal exam, mucous membranes moist Neck exam: Present: normal inspection. Absent: tenderness, meningismus, lymphadenopathy Respiratory exam: Present: normal lung sounds bilaterally. Absent: respiratory distress, wheezes, rales, rhonchi, stridor Cardiovascular Exam: Present: regular rate, normal rhythm, normal heart sounds. Absent: systolic murmur, diastolic murmur, rubs, gallop, clicks GI/Abdominal exam: Present: distended, tenderness (Positive diffuse tenderness especially hypogastric, umbilical, right inguinal, and right hepatic regions. Positive tympanic tenderness in the same regions.), guarding, rebound, rigid, hypoactive bowel sounds Extremities exam: Present: normal inspection, full ROM, normal capillary refill. Absent: tenderness, pedal edema, joint swelling, calf tenderness Back exam: Present: normal inspection (Negative bilateral CVA tenderness.) Neurological exam: Present: alert, CN II-XII intact Psychiatric exam: Present: normal affect, normal mood Skin exam: Present: warm, dry, intact, normal color. Absent: rash Course Vital Signs 11/18/23 11/18/23 11/18/23 08:08 08:16 09:30 Temperature 98.2 F Pulse Rate 89 96 Respiratory 16 16 Rate Blood Pressure 193/103 191/95 176/96 O2 Sat by Pulse 97 97 Oximetry 11/18/23 09:42 Temperature 98.1 F Pulse Rate 92 Respiratory 17 Rate Blood Pressure 158/80 O2 Sat by Pulse 98 Oximetry Medical Decision Making - Medical Decision Making Was pt. sent in by a medical professional or institution (, PA, CREDIT MANAGER, urgent care, hospital, or residential...) When possible be specific @ -No Did you speak to anyone other than the patient for history (EMS, parent, family, police, friend...)? What history was obtained from this source @ -No Did you review nursing and triage notes (agree or disagree)? Why? @ -I reviewed and agree with nursing and triage notes Were old charts reviewed (outside hosp., previous admission, EMS record, old EKG, old radiological studies, urgent care reports/EKG's, residential records)? Report findings @ -No old charts were reviewed Differential Diagnosis (chest pain, altered mental status, abdominal pain women, abdominal pain men, vaginal bleeding, weakness, fever, dyspnea, syncope, headache, dizziness, GI bleed, back pain, seizure, CVA, palpatations, mental health, musculoskeletal)? @ -Urinary tract infection, AAA, constipation, IBS, Crohn's disease, ulcerative colitis, diverticulitis, obstructed Edwards catheter, urinary retention, BPH, AKF, CKD, appendicitis, nephrolithiasis, strangulated herniation, testicular torsion EKG interpreted by me (3pts min.). @ -Sinus rhythm with QT prolongation. No ST elevation, ST depression, T wave inversion. Ventricular rate 93 bpm, TN interval 156 ms, QRS duration 114 ms, QT/QTc 403/453 ms. X-rays interpreted by me (1pt min.). @ -None done CT interpreted by me (1pt min.). @ -None done U/S interpreted by me (1pt. min.). @ -Bladder scan performed showing 653 mL of urine in bladder. What testing was considered but not performed or refused? (CT, X-rays, U/S, labs)? Why? @ -None What meds were considered but not given or refused? Why? @ -None Did you discuss the management of the patient with other professionals (professionals i.e. , PA, CREDIT MANAGER, lab, RT, psych nurse, social work manager, medical field representative, teacher, strike warfare/missile systems officer, welfare case worker)? Give summary @ -No Was smoking cessation discussed for >3mins.? @ -No Was critical care preformed (if so, how long)? @ -No Were there social determinants of health that impacted care today? How? (Homelessness, low income, unemployed, alcoholism, drug addiction, transportation, low edu. Level, literacy, decrease access to med. care, penitentiary, rehab)? @ -No Was there de-escalation of care discussed even if they declined (Discuss DNR or withdrawal of care, Hospice)? DNR status @ -No What co-morbidities impacted this encounter? (DM, HTN, Smoking, COPD, CAD, Cancer, CVA, ARF, Chemo, Hep., AIDS, mental health diagnosis, sleep apnea, morbid obesity)? @ -None Was patient admitted / discharged? Hospital course, mention meds given and route, prescriptions, significant lab abnormalities, going to OR and other pertinent info. @ -Twelve-lead EKG performed by RN prior to being seen by provider due to noted tachycardia and hypertensive urgency. Bladder scan shows over 650 mL in bladder. RN endorses difficulty removing catheter. UMANG James assisted with successful removal. Patient noted some relief following removal. New catheter placed by RN. Blood drawn, UA with reflex culture performed. Undiagnosed new problem with uncertain prognosis? @ -No Drug Therapy requiring intensive monitoring for toxicity (Heparin, Nitro, Insulin, Cardizem)? @ -No Were any procedures done? @ -No Diagnosis/symptom? @ -Obstructed Edwards catheter with urinary retention, UTI, hypertensive urgency. Acute, or Chronic, or Acute on Chronic? @ -Acute Uncomplicated (without systemic symptoms) or Complicated (systemic symptoms)? @ -Uncomplicated Side effects of treatment? @ -No Exacerbation, Progression, or Severe Exacerbation? @ -No Poses a threat to life or bodily function? How? (Chest pain, USA, ME, pneumonia, PE, COPD, DKA, ARF, appy, cholecystitis, CVA, Diverticulitis, Homicidal, Suicidal, threat to staff... and all critical care pts) @ -No - Lab Data Result diagrams: 11/18/23 08:39 11/18/23 08:39 Lab Results 11/18/23 11/18/23 11/18/23 Range/Units 08:39 08:39 09:10 WBC 12.5 H (3.8-10.6) k/uL RBC 4.81 (4.30-5.90) m/uL Hgb 14.2 (13.0-17.5) gm/dL Hct 44.1 (39.0-53.0) % MCV 91.6 (80.0-100.0) fL MCH 29.5 (25.0-35.0) pg MCHC 32.2 (31.0-37.0) g/dL RDW 13.5 (11.5-15.5) % Plt Count 238 (150-450) k/uL MPV 7.4 Neutrophils % 89 % Lymphocytes % 6 % Monocytes % 4 % Eosinophils % 1 % Basophils % 0 % Neutrophils # 11.1 H (1.3-7.7) k/uL Lymphocytes # 0.7 L (1.0-4.8) k/uL Monocytes # 0.5 (0-1.0) k/uL Eosinophils # 0.1 (0-0.7) k/uL Basophils # 0.0 (0-0.2) k/uL Sodium 143 (137-145) mmol/L Potassium 3.8 (3.5-5.1) mmol/L Chloride 107 (98-107) mmol/L Carbon Dioxide 24 (22-30) mmol/L Anion Gap 12 mmol/L BUN 44 H (9-20) mg/dL Creatinine 1.84 H (0.66-1.25) mg/dL Est GFR (CKD-EPI)AfAm 37 (>60 ml/min/1.73 sqM) Est GFR (CKD-EPI)NonAf 32 (>60 ml/min/1.73 sqM) Glucose 177 H (74-99) mg/dL Calcium 9.9 (8.4-10.2) mg/dL Total Bilirubin 0.8 (0.2-1.3) mg/dL AST 21 (17-59) U/L ALT 14 (4-49) U/L Alkaline Phosphatase 89 (38-126) U/L Total Protein 6.8 (6.3-8.2) g/dL Albumin 4.1 (3.5-5.0) g/dL Urine Color Light Red Urine Appearance Turbid (Clear) Urine pH 6.5 (5.0-8.0) Ur Specific [place] 1.019 (1.001-1.035) Urine Protein 2+ H (Negative) Urine Glucose (UA) Negative (Negative) Urine Ketones Trace H (Negative) Urine Blood Large H (Negative) Urine Nitrite Positive (Negative) Urine Bilirubin Negative (Negative) Urine Urobilinogen <2.0 (<2.0) mg/dL Ur Leukocyte Esterase Large H (Negative) Urine RBC >182 H (0-5) /hpf Urine WBC >182 H (0-5) /hpf Urine Bacteria Many H (None) /hpf Urine Mucus Occasional H (None) /hpf Disposition Clinical Impression: Edwards catheter problem, Urinary retention, UTI (urinary tract infection) due to urinary indwelling Edwards catheter Disposition: HOME SELF-CARE Condition: Good Prescriptions: Cephalexin [Keflex] 500 mg PO Q6HR 10 Days #40 cap Is patient prescribed a controlled substance at d/c from ED?: No Referrals: Ignacio Lassiter MD [Primary Care Provider] - 1-2 days Time of Disposition: 10:18
[2023-11-18 09:03] LABS: ALT 14 U/L (4-49); AST 21 U/L (17-59); African American GFR (CKD) 37 (>60 ml/min/1.73 sqM); Albumin 4.1 g/dL (3.5-5.0); Alkaline Phosphatase 89 U/L (38-126); Anion Gap 12 mmol/L; Blood Urea Nitrogen 44 mg/dL (9-20); Calcium 9.9 mg/dL (8.4-10.2); Carbon Dioxide 24 mmol/L (22-30); Chloride 107 mmol/L (98-107); Glucose 177 mg/dL (74-99); Non-African American GFR(CKD) 32 (>60 ml/min/1.73 sqM); Potassium 3.8 mmol/L (3.5-5.1); Sodium 143 mmol/L (137-145); Total Bilirubin 0.8 mg/dL (0.2-1.3); Total Protein 6.8 g/dL (6.3-8.2)
[2023-11-18 09:28] LABS: Appearance,Urine Turbid (Clear); Bacteria,Urine Many /hpf; Bilirubin,Urine Negative (Negative); Blood,Urine Large (Negative); Color,Urine Light Red; Glucose,Urine (UA) Negative (Negative); Ketones,Urine Trace (Negative); Leukocyte Esterase,Urine Large (Negative); Mucus,Urine Occasional /hpf; Nitrite,Urine Positive (Negative); PH, Urine 6.5 (5.0-8.0); Protein,Urine 2+ (Negative); RBC,Urine >182 /hpf (0-5); Specific Gravity,Urine 1.019 (1.001-1.035); Urobilinogen,Urine <2.0 mg/dL (<2.0); WBC,Urine >182 /hpf (0-5)
[2023-11-18] MEDS: cefTRIAXone IN SWFI 1,000 MG/10 ML SYRINGE IVP STA (10:04)
[2023-11-18 10:21] VITALS: RESP 17
[2023-11-18 11:22] VITALS: BP 166/81; PULSE 90; TEMP 97.7
== END 2023-11-18 11:26 | disposition home or self-care (01) ==
LOC: EC 08:07
CPT/HCPCS: 36415; 80053; 81001; 85025; 87077; 87086; 87186; 93005; 96374; 99284